=== PATIENT | male | born 1980 | race Caucasian/White ===

== ENCOUNTER 2023-01-05 14:20 | Emergency (ER) | payer OTHER, SELFPAY ==
--- NOTE | 2023-01-05 15:15 | RAD REPORT ---
EXAM DESCRIPTION: RAD - Knee Right 3 View - 01/05/2023 3:09 pm CLINICAL HISTORY: Pain;Swelling COMPARISON: No comparisons FINDINGS: There is significant soft tissue swelling anterior to the patella. No fracture, dislocatio n or joint effusion. IMPRESSION: Significant soft tissue swelling anterior knee.
--- NOTE | 2023-01-05 15:28 | ER ---
Nurse's Notes [facility] Name: Manjeet Luna Age: 42 yrs Sex: Male : 1980 Arrival Date: 01/05/2023 Time: 14:20 Bed 12 Private MD: Diagnosis: Effusion, right knee Presentation: 01/05 14:35 Chief complaint: Patient states: Pt reports right knee swelling and pain X1 week. Pt cm10 reports that this is an ongoing issue but got worse 1 week ago. Pt reports taking Excedrin for the pain with no relief. Coronavirus screen: Vaccine status: Patient reports being unvaccinated. Client denies travel out of the [place] in the last 14 days. At this time, the client does not indicate any symptoms associated with coronavirus-19. Ebola Screen: No symptoms or risks identified at this time. 14:35 Method Of Arrival: Ambulatory cm10 14:37 Initial Sepsis Screen: Does the patient meet any 2 criteria? No. Patient's initial cm10 sepsis screen is negative. Does the patient have a suspected source of infection? No. Patient's initial sepsis screen is negative. Risk Assessment: Do you want to hurt yourself or someone else? Patient reports no desire to harm self or others. Onset of symptoms was December 29, 2022. 14:37 Acuity: AYAN 4 cm10 Triage Assessment: 14:38 General: Appears in no apparent distress. comfortable, Behavior is calm, cooperative. cm10 Pain: Complains of pain in right knee Pain currently is 8 out of 10 on a pain scale. Quality of pain is described as dull, sharp, Pain began 1 week Is continuous, Alleviated by rest, Aggravated by increased activity, repositioning, Current management is with. Historical: - Allergies: 14:38 No Known Allergies; cm10 - Home Meds: 14:38 None [Active]; cm10 - PMHx: 14:38 None; cm10 - PSHx: 14:38 None; cm10 - Immunization history:: Adult Immunizations unknown. - Social history:: Smoking status: Patient denies any tobacco usage or history of. Screenin:57 [facility] ED Fall Risk Assessment (Adult) History of falling in the last 3 months, ll1 including since admission No falls in past 3 months (0 pts) Confusion or Disorientation No (0 pts) Intoxicated or Sedated No (0 pts) Impaired Gait No (0 pts) Mobility Assist Device Used No (0 pt) Altered Elimination No (0 pt) Score/Fall Risk Level 0 - 2 = Low Risk Oriented to surroundings, Maintained a safe environment. Abuse screen: Denies threats or abuse. Nutritional screening: No deficits noted. Tuberculosis screening: No symptoms or risk factors identified. Vital Signs: 14:37 BP 151 / 97; Pulse 112; Resp 18; Temp 98.2(O); Pulse Ox 96% on R/A; Weight 136.08 kg; cm10 Height 6 ft. 2 in. ; Pain 8/10; 14:37 Body Mass Index 38.52 (136.08 kg, 187.96 cm) cm10 14:37 Pain Scale: Adult cm10 ED Course: 14:22 Patient arrived in ED. mr 14:38 Triage completed. cm10 14:39 Guerline Gann FNP-C is PHCP. snw 14:39 Deepak Boggs MD is Attending Physician. snw 14:39 Arm band placed on Patient placed in an exam room, on a stretcher. cm10 15:10 Knee Right 3 View XRAY In Process Unspecified. EDMS 15:24 Nela Alicea, RN is Primary Nurse. ll1 15:57 No provider procedures requiring assistance completed. ll1 15:58 Patient has correct armband on for positive identification. ll1 15:58 Patient did not have IV access during this emergency room visit. ll1 Administered Medications: 15:50 Not Given (Patient Refused): Famotidine PO 20 mg PO once ll1 15:50 Not Given (Patient Refused): Boostrix Tdap IM 0.5 ml IM once; as a single dose ll1 15:51 Not Given (Patient Refused): Ciprofloxacin PO 500 mg PO once ll1 15:51 Not Given (Patient Refused): predniSONE PO 40 mg PO once ll1 Medication: 15:58 VIS not applicable for this client. ll1 Outcome: 15:28 Discharge ordered by . snw 15:57 Discharged to home ambulatory. ll1 15:57 Condition: stable 15:57 Discharge instructions given to patient, Instructed on discharge instructions, follow up and referral plans. 15:58 Patient left the ED. ll1 Signatures: Dispatcher [employer] EDNE Guerline Gann FNP-C FNP-Alnaa Araya mr Nela Alicea, RN RN ll1 Jhony, Nadine, RN RN cm10
--- NOTE | 2023-01-05 15:28 | EDPHYS ---
Physician Documentation [facility] Name: Manjeet Luna Age: 42 yrs Sex: Male : 1980 Arrival Date: 01/05/2023 Time: 14:20 Bed 12 Private MD: ED Physician Deepak Boggs HPI: 01/05 15:35 This 42 yrs old Male presents to ER via Ambulatory with complaints of Knee swelling. snw 15:35 Onset: The symptoms/episode began/occurred acutely, 2 day(s) ago, and became snw persistent. Modifying factors: The patient symptoms are alleviated by nothing, the patient symptoms are aggravated by bending. It is unknown whether or not the patient has had similar symptoms in the past. Historical: - Allergies: 14:38 No Known Allergies; cm10 - Home Meds: 14:38 None [Active]; cm10 - PMHx: 14:38 None; cm10 - PSHx: 14:38 None; cm10 - Immunization history:: Adult Immunizations unknown. - Social history:: Smoking status: Patient denies any tobacco usage or history of. ROS: 15:34 Constitutional: Negative for fever, chills, and weight loss, Eyes: Negative for injury, snw pain, redness, and discharge, ENT: Negative for injury, pain, and discharge, Neck: Negative for injury, pain, and swelling, Cardiovascular: Negative for chest pain, palpitations, and edema, Respiratory: Negative for shortness of breath, cough, wheezing, and pleuritic chest pain, Abdomen/GI: Negative for abdominal pain, nausea, vomiting, diarrhea, and constipation, Back: Negative for injury and pain, : Negative for injury, bleeding, discharge, and swelling, Skin: Negative for injury, rash, and discoloration, Neuro: Negative for headache, weakness, numbness, tingling, and seizure, Psych: Negative for depression, anxiety, suicide ideation, homicidal ideation, and hallucinations. 15:34 MS/extremity: Positive for pain, swelling, tenderness, of the right knee. Exam: 15:33 Constitutional: This is a well developed, well nourished patient who is awake, alert, snw and in no acute distress. Head/Face: Normocephalic, atraumatic. Eyes: Pupils equal round and reactive to light, extra-ocular motions intact. Lids and lashes normal. Conjunctiva and sclera are non-icteric and not injected. Cornea within normal limits. Periorbital areas with no swelling, redness, or edema. ENT: Nares patent. No nasal discharge, no septal abnormalities noted. Tympanic membranes are normal and external auditory canals are clear. Oropharynx with no redness, swelling, or masses, exudates, or evidence of obstruction, uvula midline. Mucous membranes moist. Neck: Trachea midline, no thyromegaly or masses palpated, and no cervical lymphadenopathy. Supple, full range of motion without nuchal rigidity, or vertebral point tenderness. No Meningismus. Chest/axilla: Normal chest wall appearance and motion. Nontender with no deformity. No lesions are appreciated. Cardiovascular: Regular rate and rhythm with a normal S1 and S2. No gallops, murmurs, or rubs. Normal PMI, no JVD. No pulse deficits. Respiratory: Lungs have equal breath sounds bilaterally, clear to auscultation and percussion. No rales, rhonchi or wheezes noted. No increased work of breathing, no retractions or nasal flaring. Abdomen/GI: Soft, non-tender, with normal bowel sounds. No distension or tympany. No guarding or rebound. No evidence of tenderness throughout. Back: No spinal tenderness. No costovertebral tenderness. Full range of motion. Skin: Warm, dry with normal turgor. Normal color with no rashes, no lesions, and no evidence of cellulitis. Neuro: Awake and alert, GCS 15, oriented to person, place, time, and situation. Cranial nerves II-XII grossly intact. Motor strength 5/5 in all extremities. Sensory grossly intact. Cerebellar exam normal. Normal gait. Psych: Awake, alert, with orientation to person, place and time. Behavior, mood, and affect are within normal limits. 15:33 Musculoskeletal/extremity: Extremities: grossly normal except: noted in the right knee: decreased ROM, swelling, tenderness, ROM: limited active range of motion due to pain, limited passive range of motion due to pain, Circulation is intact in all extremities. Sensation intact. Vital Signs: 14:37 BP 151 / 97; Pulse 112; Resp 18; Temp 98.2(O); Pulse Ox 96% on R/A; Weight 136.08 kg; cm10 Height 6 ft. 2 in. ; Pain 03/02; 14:37 Body Mass Index 38.52 (136.08 kg, 187.96 cm) cm10 14:37 Pain Scale: Adult cm10 MDM: 14:45 Patient medically screened. snw 15:34 Differential diagnosis: bacterial infection, gout, trauma, bursitis. Data reviewed: snw vital signs, nurses notes. Counseling: I had a detailed discussion with the patient and/or guardian regarding: the historical points, exam findings, and any diagnostic results supporting the discharge/admit diagnosis, radiology results, the need for outpatient follow up, for definitive care, to return to the emergency department if symptoms worsen or persist or if there are any questions or concerns that arise at home. Special discussion: Based on the history and exam findings, there is no indication for further emergent testing or inpatient evaluation. I discussed with the patient/guardian the need to see the orthopedic surgeon for further evaluation of the symptoms. I discussed with the patient/guardian the need to see the primary care provider for further evaluation of the symptoms. 01/05 14:40 Order name: Knee Right 3 View XRAY; Complete Time: 15:18 snw 01/05 15:26 Order name: Knee Immobilizer; Complete Time: 15:50 snw Administered Medications: 15:50 Not Given (Patient Refused): Famotidine PO 20 mg PO once ll1 15:50 Not Given (Patient Refused): Boostrix Tdap IM 0.5 ml IM once; as a single dose ll1 15:51 Not Given (Patient Refused): Ciprofloxacin PO 500 mg PO once ll1 15:51 Not Given (Patient Refused): predniSONE PO 40 mg PO once ll1 Disposition Summary: 01/05/23 15:28 Discharge Ordered Location: Home snw Condition: Stable snw Diagnosis - Effusion, right knee snw Followup: snw - With: Emergency Department - When: As needed - Reason: Worsening of condition Followup: snw - With: Private Physician - When: 2 - 3 days - Reason: Recheck today's complaints, Continuance of care, Re-evaluation by your physician Discharge Instructions: - Discharge Summary Sheet snw - Knee Effusion snw - Knee Arthrocentesis snw - Heat Therapy snw Forms: - Work release form snw - Medication Reconciliation Form snw - Thank You Letter snw - Antibiotic Education snw - Prescription Opioid Use snw Prescriptions: - Cipro 500 mg Oral Tablet - take 1 tablet by ORAL route every 12 hours for 10 days; 20 tablet; Refills: 0, snw Product Selection Permitted - Prednisone 20 mg Oral Tablet - take 2 tablets by ORAL route once daily for 5 days; 10 tablet; Refills: 0, snw Product Selection Permitted - Pepcid 20 mg Oral Tablet - take 1 tablet by ORAL route once daily; 20 tablet; Refills: 0, Product snw Selection Permitted Signatures: Dispatcher [employer] Guerline Levi, LOCATION MANAGER-C LOCATION MANAGER-Blessingw Nadine Booker, RN RN cm10 Nela Alicea RN ll1
[2023-01-05 16:42] VITALS: BP 151/97; TEMP 98.2; O2SAT 96
== END 2023-01-05 15:58 | disposition home or self-care (01) ==
LOC: ER 14:20
DX: M25.461 Effusion, right knee (principal)
CPT/HCPCS: 99283

== ENCOUNTER 2023-06-04 23:09 | Emergency (ER) | payer OTHER ==
[2023-06-05] MEDS ORDERED: LIDOCAINE 1% MPF 30 ML VIAL ONE (00:03)
[2023-06-05 01:24] LABS: Appearance VERY TURBID (CLEAR); Body Fluid Source SYNOVIAL; Body Fluid WBC 12871 /mm^3; Color of fluid Yellow (COLORLESS)
--- NOTE | 2023-06-05 01:42 | ER ---
Nurse's Notes [facility] Name: Manjeet Luna Age: 42 yrs Sex: Male : 1980 Arrival Date: 06/04/2023 Time: 23:09 Bed 13 Private MD: Diagnosis: gout of right knee Presentation: 06/04 23:32 Chief complaint: Patient states: right knee pain x 3 days seen on Jun 02 at another facility given antibiotic injection and clindamycin 600mg TID pt reports very little improvement. Coronavirus screen: Vaccine status: Patient reports being unvaccinated. Ebola Screen: Patient negative for fever greater than or equal to 101.5 degrees Fahrenheit, and additional compatible Ebola Virus Disease symptoms. Initial Sepsis Screen: Does the patient meet any 2 criteria? HR > 90 bpm. Does the patient have a suspected source of infection? No. Patient's initial sepsis screen is negative. Risk Assessment: Do you want to hurt yourself or someone else? Patient reports no desire to harm self or others. Note on crutches. 23:32 Method Of Arrival: Other 23:32 Acuity: AYAN 3 Triage Assessment: 23:37 General: Appears uncomfortable, Behavior is calm, cooperative. Pain: Complains of pain kl in right knee Pain currently is 9 out of 10 on a pain scale. EENT: No deficits noted. Neuro: No deficits noted. Cardiovascular: No deficits noted. Respiratory: No deficits noted. GI: No deficits noted. No signs and/or symptoms were reported involving the gastrointestinal system. : No deficits noted. No signs and/or symptoms were reported regarding the genitourinary system. Derm: No deficits noted. No signs and/or symptoms reported regarding the dermatologic system. Musculoskeletal: Circulation, motion, and sensation intact. Capillary refill < 3 seconds, Range of motion: limited in right knee Reports pain in right knee. Historical: - Allergies: 23:36 No Known Allergies; kl - Home Meds: 23:36 clindamycin HCl 300 mg Oral capsule 2 caps every 8 hours [Active]; kl - PMHx: 23:36 None; kl - PSHx: 23:36 None; kl - Immunization history:: Adult Immunizations not immunized. - Social history:: Smoking status: Patient denies any tobacco usage or history of. Screenin:15 [facility] ED Fall Risk Assessment (Adult) History of falling in the last 3 months, kl including since admission No falls in past 3 months (0 pts) Confusion or Disorientation No (0 pts) Intoxicated or Sedated No (0 pts) Impaired Gait Yes (1 pt) Mobility Assist Device Used Yes (1 pt) Altered Elimination No (0 pt) Score/Fall Risk Level 0 - 2 = Low Risk Oriented to surroundings, Educated pt \T\ family on fall prevention, incl call for assistance when getting out of bed. Abuse screen: Denies threats or abuse. Nutritional screening: No deficits noted. Tuberculosis screening: No symptoms or risk factors identified. Assessment: 06/05 00:15 Reassessment: Patient and/or family updated on plan of care and expected duration. Pain kl level reassessed. Patient is alert, oriented x 3, equal unlabored respirations, skin warm/dry/pink. Patient states feeling better. Patient states symptoms have improved. Vital Signs: 06/04 23:32 BP 153 / 97; Pulse 109; Resp 16; Temp 98.3(O); Pulse Ox 95% on R/A; Weight 130.63 kg kl (M); Height 6 ft. 1 in. ; Pain /; 06/05 00:35 BP 148 / 72; Pulse 72; Resp 20; kl 01:49 BP 136 / 80; Pulse 98; Pulse Ox 97% ; kl 06/04 23:32 Body Mass Index 38.00 (130.63 kg, 185.42 cm) 06/04 23:32 Pain Scale: Adult ED Course: 06/04 23:16 Patient arrived in ED. gm2 23:16 Shelly Mederos PA-C [facility]. sb4 23:16 Vane Upton MD is Attending Physician. sb4 23:36 Triage completed. 06/05 00:35 No apparent distress. Resting quietly. kl 00:36 Patient has correct armband on for positive identification. Bed in low position. Call light in reach. Procedure consent explained by staff, explained by physician. 00:36 of right knee fluid removed was yellow, Specimen sent to lab. Removed 20 ml's of fluid Set up for procedure. Dressed with 4X4s, Patient tolerated well. 01:49 Patient did not have IV access during this emergency room visit. Administered Medications: 01:48 Drug: predniSONE PO 60 mg PO once Route: PO; ron Medication: 00:37 VIS not applicable for this client. ron Outcome: 01:42 Discharge ordered by MD. eastman 01:49 Discharged to home ambulatory, 01:49 Condition: improved 01:49 Discharge instructions given to patient, Instructed on discharge instructions, follow up and referral plans. medication usage, Demonstrated understanding of instructions, follow-up care, medications, Prescriptions given X 2, 01:49 Patient left the ED. Signatures: Gemma Alicea RN RN Shelly Salomon, PA-C PA-C Ro Hassan [facility]
--- NOTE | 2023-06-05 01:42 | EDPHYS ---
Physician Documentation [facility] Name: Manjeet Luna Age: 42 yrs Sex: Male : 1980 Arrival Date: 06/04/2023 Time: 23:09 Bed 13 Private MD: ED Physician Vane Upton HPI: 06/05 00:19 This 42 yrs old Male presents to ER via Other with complaints of Knee Pain. sb4 00:19 The patient presents with pain, that is acute, swelling. The complaints affect the sb4 right knee. Onset: The symptoms/episode began/occurred 5 day(s) ago. Patient states that his right knee was swollen when he woke up 5 days ago. He states that it was painful and was not getting better so he went to [facility] ED 2 days later. They did an x-ray that was negative and prescribed him clindamycin. He states he has been taking the clindamycin as prescribed but feels that the pain and swelling are not getting any better. He denies any fevers or erythema to the area. No numbness or tingling in his leg. He denies any history of gout. Historical: - Allergies: 06/04 23:36 No Known Allergies; kl - Home Meds: 23:36 clindamycin HCl 300 mg Oral capsule 2 caps every 8 hours [Active]; kl - PMHx: 23:36 None; kl - PSHx: 23:36 None; kl - Immunization history:: Adult Immunizations not immunized. - Social history:: Smoking status: Patient denies any tobacco usage or history of. ROS: 06/05 00:19 Constitutional: Negative for fever, chills, and weight loss, sb4 MS/extremity: Positive for pain, swelling, of the right knee, Exam: 00:19 Constitutional: This is a well developed, well nourished patient who is awake, alert, sb4 and in no acute distress. Head/Face: Normocephalic, atraumatic. Eyes: Extra-ocular motions intact. Periorbital areas with no swelling, redness, or edema. ENT: Mucous membranes moist. Skin: Warm, dry with normal turgor. Normal color with no rashes, no lesions, and no evidence of cellulitis. Neuro: Awake and alert, GCS 15, oriented to person, place, time, and situation. Motor strength 5/5 in all extremities. Sensory grossly intact. 00:19 Musculoskeletal/extremity: Exam is negative for calf tenderness, decreased range of motion, deformity, ecchymosis, erythema, Joints: the right knee displays effusion, swelling, Vital Signs: 06/04 23:32 BP 153 / 97; Pulse 109; Resp 16; Temp 98.3(O); Pulse Ox 95% on R/A; Weight 130.63 kg kl (M); Height 6 ft. 1 in. ; Pain 04/02; 06/05 00:35 BP 148 / 72; Pulse 72; Resp 20; kl 01:49 BP 136 / 80; Pulse 98; Pulse Ox 97% ; kl 06/04 23:32 Body Mass Index 38.00 (130.63 kg, 185.42 cm) kl 06/04 23:32 Pain Scale: Adult kl Procedures: 00:19 Joint Treatment: Aspiration of right knee using 18 gauge needle, Lidocaine, Removed 30 sb4 ml's of yellow fluid, Specimen sent to lab. Dressed with 4x4s, Patient tolerated well. MDM: 06/04 23:25 Patient medically screened. sb4 06/05 00:19 Differential diagnosis: Knee effusion, gout, septic joint. sb4 01:44 Data reviewed: vital signs, nurses notes, lab test result(s), I have discussed the sb4 patient's presentation/case with the attending Emergency Department Physician; and as a result, I will discharge patient. Counseling: I had a detailed discussion with the patient and/or guardian regarding the historical points, exam findings, and any diagnostic results supporting the discharge/admit diagnosis, lab results, to return to the emergency department if symptoms worsen or persist or if there are any questions or concerns that arise at home. 06/05 00:14 Order name: Body Fluid Cell Count; Complete Time: 01:37 EDMS 06/05 00:14 Order name: Body Fluid Crystals; Complete Time: :37 EDMS 06/05 00:17 Order name: Body Fluid Culture EDMS Administered Medications: 01:48 Drug: predniSONE PO 60 mg PO once Route: PO; kl Disposition Summary: 06/05/23 01:42 Discharge Ordered Notes: Location: Home sb4 Problem: new sb4 Symptoms: have improved sb4 Condition: Stable sb4 Diagnosis - gout of right knee sb4 Followup: sb4 - With: Emergency Department - When: As needed - Reason: Trouble breathing, Worsening of condition Discharge Instructions: - Discharge Summary Sheet sb4 - Gout, [id number] sb4 Forms: - Medication Reconciliation Form sb4 - Thank You Letter sb4 - Antibiotic Education sb4 - Prescription Opioid Use sb4 - Patient Portal Instructions sb4 - Leadership Thank You Letter sb4 Prescriptions: - Prednisone 20 mg Oral tablet - take 3 tablets ORAL route once daily for 4 days; 12 tablet; Refills: 0, Product sb4 Selection Permitted - Diclofenac Sodium 75 mg Oral tablet, delayed release (enteric coated) - take 1 tablet ORAL route 2 times per day for 10 days; 20 tablet; Refills: 0, sb4 Product Selection Permitted Signatures: Dispatcher [employer] Gemma Jarquin RN RN kl Brown, Sophia, PA-C PAAgustin sb4
[2023-06-05 01:54] VITALS: TEMP 98.3
[2023-06-05 01:57] VITALS: BP 136/80; O2SAT 97
[2023-06-05] MEDS ORDERED: predniSONE 20 MG TAB ONE (01:57)
== END 2023-06-05 01:49 | disposition home or self-care (01) ==
LOC: ER 23:09
PROC: 0S9C3ZX Drainage of Right Knee Joint, Percutaneous Approach, Diagnostic (ICD-10-PCS; principal; 2023-06-05)
DX: M10.9 Gout, unspecified (principal)
CPT/HCPCS: 87070; 36415; 89050; 89060; 99284; 10021; J7512

== ENCOUNTER 2023-07-02 18:57 | Emergency (ER) | payer OTHER ==
[2023-07-02] MEDS ORDERED: dexAMETHasone 10 MG/ML VIAL ONE (20:11)
[2023-07-02] MEDS ORDERED: KETOROLAC 30 MG/ML INJ ONE (20:12)
--- NOTE | 2023-07-02 20:32 | RAD REPORT ---
EXAM DESCRIPTION: RAD - Knee Right 3 View - 07/02/2023 8:10 pm CLINICAL HISTORY: PAIN COMPARISON: <Comparisons> FINDINGS: Moderate soft tissue swelling is seen no involving the anterior aspect of the knee. No acu te fracture or dislocation seen. Moderate suprapatellar joint effusion.
--- NOTE | 2023-07-02 20:32 | RAD REPORT ---
EXAM DESCRIPTION: RAD - Knee Left 3 View - 07/02/2023 8:10 pm CLINICAL HISTORY: PAIN COMPARISON: <Comparisons> FINDINGS: Moderate soft tissue swelling is seen along the anterior aspect of the knee. No fracture, dislocation or aggressive marrow lesion. No significant joint effusion.
--- NOTE | 2023-07-02 21:34 | RAD REPORT ---
EXAM DESCRIPTION: US - Extrem Venous W Compress Oscar - 07/02/2023 9:29 pm CLINICAL HISTORY: Pain;Swelling Bilateral leg edema and swelling. COMPARISON: <Comparisons> TECHNIQUE: Real-time sonographic interrogation of the left and right lower extremity deep venous sys tems was performed. FINDINGS: Normal compressibility, flow augmentation, phasic flow and spontaneous flow is identified in both the left and right lower extremity deep venous systems. IMPRESSION: No sonographic evidence of left or right lower extremity deep venous thrombosis.
[2023-07-02] MEDS ORDERED: HYDROMORPHONE HCL 1 MG/ML INJ ONE (21:42)
--- NOTE | 2023-07-02 21:44 | EDPHYS ---
Physician Documentation [facility] Name: Manjeet Luna Age: 42 yrs Sex: Male : 1980 Arrival Date: 07/02/2023 Time: 18:57 Bed 11 Private MD: ED Physician Wero Urias HPI: 07/02 19:30 This 42 yrs old Male presents to ER via Ambulatory with complaints of Knee Pain. cp 19:30 The patient presents with pain, that is acute, swelling, tenderness. The complaints cp affect the left knee, right knee. 19:30 Context: reports diagnosed with gout. Onset: The symptoms/episode began/occurred last cp month. Associated signs and symptoms: Pertinent positives: swelling, warmth, skin redness, Pertinent negatives fever, injury. Historical: - Allergies: 19:29 No Known Allergies; nj1 - PSHx: 19:29 Hemorrhoidectomy; nj1 - Immunization history:: Client reports having NOT received the Covid vaccine. - Social history:: Smoking status: Reported history of juuling and/or vaping. ROS: 19:35 Constitutional: Negative for body aches, chills, fever, poor PO intake, cp 19:35 MS/extremity: Positive for pain, of the right knee and left knee, Negative for injury cp or acute deformity, paresthesias, 19:35 Eyes: Negative for injury, pain, redness, and discharge, cp 19:35 ENT: Negative for drainage from ear(s), ear pain, sore throat, difficulty swallowing, difficulty handling secretions, 19:35 Neck: Negative for pain with movement, pain at rest, stiffness, 19:35 Cardiovascular: Negative for chest pain, edema, palpitations, 19:35 Respiratory: Negative for cough, shortness of breath, wheezing, 19:35 Abdomen/GI: Negative for abdominal pain, nausea, vomiting, and diarrhea, 19:35 Back: Negative for pain at rest, pain with movement, 19:35 Neuro: Negative for altered mental status, dizziness, headache, weakness, 19:35 All other systems are negative, Exam: 19:40 Constitutional: The patient appears in no acute distress, alert, awake, cp non-diaphoretic, non-toxic, well developed, well nourished, obese, uncomfortable, 19:40 Head/Face: Normocephalic, atraumatic. cp 19:40 Eyes: Periorbital structures: appear normal, Conjunctiva: normal, no exudate, no injection, Sclera: no appreciated abnormality, Lids and lashes: appear normal, bilaterally, 19:40 ENT: External ear(s): are unremarkable, Nose: is normal, Mouth: Lips: moist, Oral mucosa: pink and intact, moist, Posterior pharynx: is normal, airway is patent, no erythema, no exudate, 19:40 Chest/axilla: Inspection: normal, Palpation: is normal, no crepitus, no tenderness, 19:40 Cardiovascular: Rate: tachycardic, Rhythm: regular, 19:40 Respiratory: the patient does not display signs of respiratory distress, Respirations: normal, no use of accessory muscles, no retractions, labored breathing, is not present, Breath sounds: are clear throughout, 19:40 Back: pain, is absent, ROM is normal, cp 19:40 Musculoskeletal/extremity: Extremities: grossly normal except: noted in the right knee: pain, tenderness, anterior swelling with effusion, overlying skin warm with mild erythema, pain with passive ROM, noted in the left knee: pain, tenderness, mild swelling noted, full AROM, 19:40 Neuro: Orientation: to person, place \T\ time. Mentation: is normal, cp Vital Signs: 19:25 BP 147 / 106; Pulse 109; Resp 18; Temp 98.9(TE); Pulse Ox 99% on R/A; Weight 122.47 kg; nj1 Height 6 ft. 2 in. ; Pain 9/10; 20:13 BP 151 / 100; Pulse 112; Resp 19; Pulse Ox 100% on R/A; me1 20:47 BP 158 / 97; Pulse 106; Resp 18; Pulse Ox 98% on R/A; me1 19:25 Body Mass Index 34.67 (122.47 kg, 187.96 cm) nj1 19:25 Pain Scale: Adult nj1 MDM: 19:31 Patient medically screened. cp 21:00 Differential diagnosis: septic joint, cellulitis, gout, fracture, arthritis. cp 07/02 19:23 Order name: XRAY Knee RIGHT 3 view; Complete Time: 21:02 cp 07/02 21:02 Interpretation: Report reviewed. cp 07/02 19:23 Order name: XRAY Knee LEFT 3 view; Complete Time: 21:02 cp 07/02 21:02 Interpretation: Report reviewed. cp 07/02 19:23 Order name: US Extremity Venous W Compression Oscar; Complete Time: 21:36 cp 07/02 21:36 Interpretation: Report reviewed. cp Administered Medications: 20:05 Drug: Ketorolac IM 30 mg IM once Route: IM; Site: right deltoid; me1 20:14 Follow up: Response: No adverse reaction me1 20:50 Follow up: Response: Pain is decreased me1 20:05 Drug: Dexamethasone IM 10 mg IM once Route: IM; Site: right deltoid; me1 20:14 Follow up: Response: No adverse reaction me1 21:32 Drug: HYDROmorphone IM 1 mg IM once Route: IM; Site: left deltoid; me1 21:50 Follow up: Response: No adverse reaction; Pain is decreased me1 21:50 Drug: Doxycycline PO 200 mg PO once Route: PO; me1 21:54 Follow up: Response: No adverse reaction me1 21:50 Drug: predniSONE PO 40 mg PO once Route: PO; me1 21:54 Follow up: Response: No adverse reaction me1 Disposition: 21:36 Co-signature as Attending Physician, Wero Urias MD I reviewed the patient's care rt provided by the Advanced Practice Provider and agree with the diagnosis and treatment plan. Disposition Summary: 07/02/23 21:43 Discharge Ordered Notes: Location: Home cp Problem: new cp Symptoms: have improved cp Condition: Stable cp Diagnosis - Pain in left knee cp - Pain in right knee cp Followup: cp - With: Cristopher Garcia MD - When: 2 - 3 days - Reason: Recheck today's complaints Discharge Instructions: - Discharge Summary Sheet cp - Elastic Bandage and RICE Therapy cp - Acute Knee Pain, Adult cp Forms: - Medication Reconciliation Form cp - Thank You Letter cp - Antibiotic Education cp - Prescription Opioid Use cp - Patient Portal Instructions cp - Leadership Thank You Letter cp Prescriptions: - Prednisone 20 mg Oral Tablet - take 3 tablets ORAL route once daily for 5 days; 15 tablet; Refills: 0, Product cp Selection Permitted - Doxycycline Hyclate 100 mg Oral Tablet - take 1 tablet ORAL route every 12 hours; 20 tablet; Refills: 0, Product cp Selection Permitted - Tramadol 50 mg Oral Tablet - take 1 tablet ORAL route every 8 hours as needed; 12 tablet; Refills: 0, cp Product Selection Permitted Signatures: Dispatcher [employer] EDYogesh Saxena PA PA cp [place], Ryan, MD MD rt Abiola Cunningham RN RN nj1 Sabina Guzman RN RN me1 Corrections: (The following items were deleted from the chart) 19:30 19:29 PMHx: Gout; nj1 nj1
--- NOTE | 2023-07-02 21:44 | ER ---
Nurse's Notes [facility] Name: Manjeet Luna Age: 42 yrs Sex: Male : 1980 Arrival Date: 07/02/2023 Time: 18:57 Bed 11 Private MD: Diagnosis: Pain in left knee;Pain in right knee Presentation: 07/02 19:25 Chief complaint: Patient states: Right knee pain for about a month, seen here, told it nj1 was gout, took abx and steoroids which seemed to help, changed diet but as soon as steroids were completed pain came got worse as well as swelling. Denies injury. Coronavirus screen: Vaccine status: Patient reports being unvaccinated. Ebola Screen: Patient denies travel to an Ebola-affected area in the 21 days before illness onset. Initial Sepsis Screen: Does the patient meet any 2 criteria? HR > 90 bpm. No. Patient's initial sepsis screen is negative. Does the patient have a suspected source of infection? No. Patient's initial sepsis screen is negative. Risk Assessment: Do you want to hurt yourself or someone else? Patient reports no desire to harm self or others. Onset of symptoms was May 2023. 19:25 Method Of Arrival: Ambulatory [facility] 19:25 Acuity: AYAN 3 nj1 Historical: - Allergies: 19:29 No Known Allergies; nj1 - PSHx: 19:29 Hemorrhoidectomy; nj1 - Immunization history:: Client reports having NOT received the Covid vaccine. - Social history:: Smoking status: Reported history of juuling and/or vaping. Screenin:[address] [facility] ED Fall Risk Assessment (Adult) History of falling in the last 3 months, me1 including since admission No falls in past 3 months (0 pts) Confusion or Disorientation No (0 pts) Intoxicated or Sedated No (0 pts) Impaired Gait No (0 pts) Mobility Assist Device Used No (0 pt) Altered Elimination No (0 pt) Score/Fall Risk Level 0 - 2 = Low Risk Maintained a safe environment, Provided non-skid footwear, Hourly rounding (assess needs \T\ fall precautionary measures) done. Abuse screen: Denies threats or abuse. Nutritional screening: No deficits noted. Tuberculosis screening: No symptoms or risk factors identified. Assessment: 20:15 General: Appears uncomfortable, well groomed, well developed, well nourished, Behavior me1 is calm, cooperative, appropriate for age, Reports Right knee pain for about a month, seen here, told it was gout, took abx and steoroids which seemed to help, changed diet but as soon as steroids were completed pain came got worse as well as swelling. Denies injury. Pain: Complains of pain in right knee Pain does not radiate. Pain currently is 9 out of 10 on a pain scale. Quality of pain is described as aching, Pain began gradually, Is continuous. Neuro: Level of Consciousness is awake, alert, obeys commands, Oriented to person, place, time, situation, Appropriate for age. Cardiovascular: Capillary refill < 3 seconds Patient's skin is warm and dry. Respiratory: Airway is patent Respiratory effort is even, unlabored, Respiratory pattern is regular, symmetrical. Musculoskeletal: Reports pain in right knee. Vital Signs: 19:25 BP 147 / 106; Pulse 109; Resp 18; Temp 98.9(TE); Pulse Ox 99% on R/A; Weight 122.47 kg; nj1 Height 6 ft. 2 in. ; Pain 9/10; 20:13 BP 151 / 100; Pulse 112; Resp 19; Pulse Ox 100% on R/A; me1 20:47 BP 158 / 97; Pulse 106; Resp 18; Pulse Ox 98% on R/A; me1 19:25 Body Mass Index 34.67 (122.47 kg, 187.96 cm) nj1 19:25 Pain Scale: Adult [facility] ED Course: 19:00 Patient arrived in ED. gm2 19:01 Yogesh Florez PA is PHCP. cp 19:01 Wero Urias MD is Attending Physician. cp 19:29 Triage completed. nj1 19:30 Arm band placed on right wrist. nj1 19:53 Sabina Guzman, JERI is Primary Nurse. me1 20:12 XRAY Knee RIGHT 3 view In Process Unspecified. EDMS 20:12 XRAY Knee LEFT 3 view In Process Unspecified. EDMS 20:15 Patient has correct armband on for positive identification. Bed in low position. [place] [facility] [place]. Side rails up X 1. Provided Education on: POC. Verbalized understanding.. 20:15 No provider procedures requiring assistance completed. me1 21:31 US Extremity Venous W Compression Oscar In Process Unspecified. EDMS 21:42 Cristopher Garcia MD is Referral Physician. cp 22:02 Patient did not have IV access during this emergency room visit. me1 Administered Medications: 20:05 Drug: Ketorolac IM 30 mg IM once Route: IM; Site: right deltoid; me1 20:14 Follow up: Response: No adverse reaction me1 20:50 Follow up: Response: Pain is decreased me1 20:05 Drug: Dexamethasone IM 10 mg IM once Route: IM; Site: right deltoid; me1 20:14 Follow up: Response: No adverse reaction me1 21:32 Drug: HYDROmorphone IM 1 mg IM once Route: IM; Site: left deltoid; me1 21:50 Follow up: Response: No adverse reaction; Pain is decreased me1 21:50 Drug: Doxycycline PO 200 mg PO once Route: PO; me1 21:54 Follow up: Response: No adverse reaction me1 21:50 Drug: predniSONE PO 40 mg PO once Route: PO; me1 21:54 Follow up: Response: No adverse reaction me1 Medication: 20:15 VIS not applicable for this client. me1 Outcome: 21:43 Discharge ordered by MD. cp 22:02 Discharged to home via wheelchair, with friend, me1 22:02 Condition: stable 22:02 Discharge instructions given to patient, Instructed on discharge instructions, follow up and referral plans. medication usage, Demonstrated understanding of instructions, follow-up care, medications, Prescriptions given X 3, 22:09 Patient left the ED. me1 Signatures: Dispatcher [employer] EDIL Yogesh Florez PA PA cp Abiola Cunningham RN RN nj1 Sabina Guzman RN RN me1 Ro Thomas gm2 Corrections: (The following items were deleted from the chart) 19:30 19:29 PMHx: Gout; nj1 nj1 20:15 19:25 Chief complaint: Patient states: Right knee pain for about a month, seen here, me1 told it was gout, took abx and steoroids which seemed to help, changed diet but as soon as steroids were completed pain came got worse as well as swelling. Denies injury. nj1
[2023-07-02] MEDS ORDERED: predniSONE 20 MG TAB ONE (22:02)
[2023-07-02] MEDS ORDERED: DOXYCYCLINE 100 MG CAP PO ONE (22:02)
[2023-07-02 22:15] VITALS: TEMP 98.9
[2023-07-02 22:17] VITALS: BP 158/97; O2SAT 98
== END 2023-07-02 22:09 | disposition home or self-care (01) ==
LOC: ER 18:57
DX: M25.562 Pain in left knee (principal); M25.561 Pain in right knee; M10.9 Gout, unspecified
CPT/HCPCS: 73562 ×2; 93970; 96372; 99284; J7512; J1100; J1170

== ENCOUNTER 2024-10-22 19:50 | Emergency (ER) | payer OTHER ==
--- OUTSIDE RECORDS SUMMARY | 2024-10-22 19:56 | XMS REPORT | Continuity of Care Document ---
Author Name Unknown Address [address] [place] [address] [facility] [place] Address [address] [facility] [place] [address] Care Team Providers Care Police Officer Booking Name Role Phone Pcp, Patient Does Not Have A Primary Care Physic berenice Campaigns, Generic Provider Attending Clinician Unavailable BILL PERDOMO Attending Clinician Unavailable BILL PERDOMO Attending Clinician Unavailable Bill Perdomo MD Attending Clinician [phone] MAHESH SORTO Attending Clinician UnavailMAINE Kelly Attending Clinician Unavailable [place] Ramsey Attending Clinician [phone] RICCI GUIDO Attending Clinician Unavailable RICCI GUIDO Attending Clinician Unavailable Ricci Guido DO Attending Clinician [phone] MAINE HEATH Admitting Clinician Unavailable RICCI GUIDO Admitting Clinician Unavailable Payers Payer Name Policy Type Policy Number Effective Date Expirati on Date Source [facility] FOC[facility] 9 [id number] 2024 00:00:00 Allergies, Adverse Reactions, Alerts Allergy Name Allergy Type Status Severity Reaction(s) Onset Date Inactive Date Treating Clinician Comments Source NO KNOWN ALLERGIE S Drug Class Active [facility] Social History Social Habit Start Date Stop Date Quantity Comments Source Sexual orientation Ti Carter - External History of tobacco use Cigarette Smoker Ya zavaleta - External Tobacco Comment 2024-08-05 00:00:00 2024-08-05 00:00:00 Vapes Ya Carter - External Tobacco use and exposure 2024-08-05 00:00:00 2024-08-05 00:00:00 Smokeless tobacco non-user Ya Carter - External Alcoholic beverage intake 2024-08-05 00:00:00 2024-08-05 00:00:00 Ex-drinker (finding) Ya Carter - External History of Social function 2024-08-05 00:00:00 2024-08-05 00:00:00 Ya Carter - External Sex 2022-10-12 21:30:19 2022-10-12 21:30:19 Male (finding) Ya Carter - External Sex assigned at 1980 00:00:00 1980 00:00:00 Ya Carter - External Smoking Status Start Date Stop Date Source Tobacco smoking consumption unknown [facility] Occasional tobacco smoker 2024-08-05 00:00:00 Ya Carter - External Medications Ordered Medication Name Filled Medication Name Start Date Stop Date Current Medication? Ordering Clinician Indication Dosage Frequency Signature (SIG) Comments Components Source oseltamivir (TAMIFLU) capsule 75 mg 08-30 18:15: 00 08-30 17:27 :00 No 75mg 75 mg, Oral, ONCE, 1 dose, On Mon08/30/24 at 1215, Routine [facility] acetaminoph en (TYLENOL) tablet 650 mg 08-30 18:15: 00 08-30 17:27 :00 No 650mg 650 mg, Oral, ONCE, 1 dose, On Mon08/30/24 at 1215, ARMANI [facility] oseltamivir (TAMIFLU) 75 mg capsule 08-30 00:00: 00 09-05 05:59 :00 Yes [id number] 75mg Take 1 capsule by mouth every 12 (twelve) hours for 5 days. [facility] busPIRone HCl 10 MG oral Tablet 08-05 10:30: 42 Yes 10mg Q.5D Take 1 tablet (10 mg total) by mouth 2 times daily. Ya Carter - Externa l Amitriptyli ne HCl 150 MG oral Tablet 08-05 10:30: 42 Yes 150mg QD Take 1 tablet (150 mg total) by mouth nightly. Ya hopkins methylPREDN ISolone (Medrol) 4 MG oral Tablet Therapy Pack 1- 00:00: 00 08-12 05:59 :00 Yes [id number] 1{davin} Take 1 davin by mouth See Admin Instructio ns for 6 days Use as directed.. Ya Emma hopkins furosemide 20 mg tablet 2023-07 00:00: 00 07-25 05:59 :00 No [id number] 20mg Take 1 tablet by mouth every morning for 5 days. [facility] dexamethaso ne sod phos PF injection 10 mg 03-21 21:45: 00 03-21 22:53 :00 No 10mg 10 mg, Slow IV Push, ONCE, 1 dose, On Shana 03/21/24 at 1645, 1 mL [facility] ceFAZolin (ANCEF) injection 1,000 mg 03-21 21:45: 00 03-21 22:53 :00 No 1000mg 1,000 mg, Slow IV Push, ONCE, 1 dose, On Shana 03/21/24 at 1645, STAT, Reason for Anti-Infec tive: Documented Infection, Documented Infection Site: Skin / Soft Tissue, Duration of Therapy: Once (ED) [facility] HYDROcodone -acetaminop hen (NORCO 5) tablet 2 tablet 03-21 19:30: 00 03-21 20:07 :00 No 2{tbl} 2 tablet, Oral, ONCE, 1 dose, On Shana 03/21/24 at 1430, ARMANI [facility] cephALEXin 500 mg capsule 03-21 00:00: 00 Yes [id number] 500mg Take 1 capsule by mouth 4 (four) times daily. [facility] naproxen 375 mg tablet 03-21 00:00: 00 Yes [id number] 375mg Take 1 tablet by mouth in the morning and 1 tablet in the evening. Take with meals. [facility] Vital Signs Vital Name Observation Time Observation Value Comments S ource Systolic blood pressure 2024-08-30 16:47:00 135 mm[Hg] [facility] Diastolic blood pressure 2024-08-30 16:47:00 99 mm[Hg] [facility] Heart rate 2024-08-30 16:47:00 122 /min Unive [facility] Body temperature 2024-08-30 16:47:00 39.5 Avelina [facility] Respiratory rate 2024-08-30 16:47:00 18 /min [facility] Oxygen saturation in Arterial blood by Pulse oximetry 2024-08-30 16:47:00 94 /min [facility] Body height 2024-08-30 16:46:00 188 cm [facility] Body weight 2024-08-30 16:46:00 133.811 kg [facility] BMI 2024-08-30 16:46:00 37.88 kg/m2 [facility] Body height 2024-08-05 16:25:00 188 cm Jen carranza Sealeidawaqar - External Body weight 2024-08-05 16:25:00 138.801 kg Jen ey Seybold - External BMI 2024-08-05 16:25:00 39.29 kg/m2 Jen Carter - External Oxygen saturation in Arterial blood by Pulse oximetry 2024-07-19 21:49:00 92 /min [facility] Systolic blood pressure 2024-07-19 21:49:00 157 mm[Hg] [facility] Diastolic blood pressure 2024-07-19 21:49:00 104 mm[Hg] [facility] Heart rate 2024-07-19 21:49:00 88 /min Unive [facility] Body temperature 2024-07-19 21:49:00 37.28 Avelina [facility] Respiratory rate 2024-07-19 21:49:00 15 /min [facility] Body height 2024-07-19 17:53:00 185.4 cm [facility] Body weight 2024-07-19 17:53:00 124.739 kg [facility] BMI 2024-07-19 17:53:00 36.28 kg/m2 [facility] Systolic blood pressure 2024-03-21 23:45:00 130 mm[Hg] [facility] Diastolic blood pressure 2024-03-21 23:45:00 76 mm[Hg] [facility] Heart rate 2024-03-21 23:45:00 105 /min [facility] Body temperature 2024-03-21 23:45:00 37.44 Avelina [facility] Respiratory rate 2024-03-21 23:45:00 18 /min [facility] Oxygen saturation in Arterial blood by Pulse oximetry 2024-03-21 23:45:00 96 /min [facility] Body height 2024-03-21 17:43:00 185.4 cm [facility] Body weight 2024-03-21 17:43:00 131.543 kg [facility] BMI 2024-03-21 17:43:00 38.26 kg/m2 [facility] Procedures Procedure Date / Time Performed Performing Clinician Source INFLUENZA A/B RSV COVID NAAT 2024-08-30 17:19:00 Bill Perdomo [facility] BASIC METABOLIC PANEL (NA, K, CL, CO2, GLUCOSE, BUN, CREATININE, CA) 2024-07-19 21:40:00 [facility] CBC WITH DIFF 2024-07-19 21:40:00 [facility] N-TERMINAL PRO-BNP 2024-07-19 21:40:00 [facility] XR CHEST 2 VW 2024-07-19 19:23:00 [place] [facility] COMP. METABOLIC PANEL ([id number]) 2024-03-21 20:14:00 Ricci Guido [facility] SEDIMENTATION RATE 2024-03-21 20:14:00 Ricci Guido [facility] CBC WITH DIFF 2024-03-21 20:14:00 Ricci Guido [facility] XR CHEST 2 VW 2024-03-21 20:01:47 Ricci Guido [facility] US DUPLEX VENOUS ARM RIGHT - BY VASCULAR LAB 2024-03-21 19:50:27 Ricci Guido [facility] Encounters Start Date/Time End Date/Time Encounter Type Admission Type Attending [facility] Facility Care Department Encounter ID Source 2024-09-11 00:00:00 2024-09-11 11:36:00 Letter (Out) Campaigns, Generic Provider Campaigns, Generic Provider [facility] ([facility]) [id number] 350.1.13.10 4.2.7.2.686 [id number] [id number] [facility] 2024-08-30 10:47:00 2024-08-30 14:09:00 Emergency X BILL PERDOMO [facility] ERT [id number] [facility] 2024-08-30 10:47:00 2024-08-30 14:09:00 Emergency Bill Perdomo [facility] [place] 1..840.114 350.1.13.10 4.2.7.2.686 [id number] [facility] 2024-08-12 13:10:00 2024-08-12 13:10:00 Outpatient MAHESH SORTO [id number] Ya [facility] 2024-08-05 10:20:00 2024-08-05 10:20:00 Outpatient MAHESH SORTO [id number] Ya [facility] 2024-08-05 10:05:00 2024-08-05 10:05:00 Outpatient YA HARVEY [id number] Ya [facility] 2024-08-02 00:00:00 2024-08-02 00:00:00 Outpatient MAHESH SORTO [id number] Ya [facility] 2024-07-31 00:00:00 2024-07-31 12:37:01 Letter (Out) Campaigns, Generic Provider Campaigns, Generic Provider [facility] ([place]) 1.2.840.114 350.1.13.10 4.2.7.2.686 [id number] [facility] 2024-07-19 11:56:00 2024-07-19 16:32:00 Emergency X MAINE HEATH [facility] ERT [id number] [facility] 2024-07-19 11:56:00 2024-07-19 16:32:00 Emergency [place] Heath [facility] [place] 1.2.840.114 350.1.13.10 4.2.7.2.686 [id number] [facility] 2024-03-21 12:44:00 2024-03-21 18:49:00 Emergency RICCI LEGER TIMOTHY NDURSULA ERT [id number] [facility] 2024-03-21 12:44:00 2024-03-21 18:49:00 Emergency Ricci Guido [facility] 1.2.840.114 350.1.13.10 4.2.7.2.686 [id number] [facility] Results Test Description Test Time Test Comments Results Result Co mments Source [facility] (NA, K, CL, CO2, GLUCOSE, BUN, CREATININE, CA)2024-07-19 22:01:58* Test Item Value Reference Range Interpretation Comme nts NA (test code = 9555680683) 143 mmol/L 135-145 K (test code = 2928153075) 4.2 mmol/L 3.5-5.0 CL (test code = 5628908663) 102 mmol/L 98-108 CO2 TOTAL (test code = 7351019318) 32 mmol/L 23-31 H AGAP (test code = 9366027937) 9 2-16 BUN (test code = 8156139905) 9 mg/dL 7-23 GLUCOSE (test code = 1079070145) 136 mg/dL 70-110 H CREATININE (test code = 2160-0) 0.84 mg/dL 0.60-1.25 CALCIUM (test code = 8927194917) 9.8 mg/dL 8.6-10.6 eGFR (test code = 83689-6) 111.0 mL/min/1.73m2 CKD-EPI eGFR (2020). Assuming creatinine has been stable day-to-day for at least three months, the eGFR indicates Category G1 (>= 90 mL/min/1.73 m2) Lab Interpretation (test code = 30655-3) Abnormal [facility] WITH [id number] 21:48:53* Test Item Value Reference Range Interpretation Comme nts WBC (test code = 6690-2) 7.45 4.20-10.70 RBC (test code = 789-8) 4.43 4.26-5.52 HGB (test code = 718-7) 13.2 g/dL 12.2-16.4 HCT (test code = 4544-3) 38.5 % 38.4-49.3 MCV (test code = 787-2) 86.9 fL 81.7-95.6 MCH (test code = 785-6) 29.8 pg 26.1-32.7 MCHC (test code = 786-4) 34.3 g/dL 31.2-35.0 RDW-SD (test code = 64068-6) 39.9 fL 38.5-51.6 RDW-CV (test code = 788-0) 12.6 % 12.1-15.4 PLT (test code = 777-3) 425 150-328 H MPV (test code = 62311-1) 8.4 fL 9.8-13.0 L NRBC/100 WBC (test code = 4087448013) 0.0 0.0-10.0 NRBC x10^3 (test code = 1814298778) See_Comment [Automated messa ge] The system which generated this result transmitted reference range: 10*3/?L. The reference range was not used to interpret this result as normal/abnormal. GRAN MAT (NEUT) % (test code = 770-8) 55.3 % IMM GRAN % (test code = 9237576003) 0.50 % LYMPH % (test code = 736-9) 27.8 % MONO % (test code = 5905-5) 8.2 % EOS % (test code = 713-8) 7.0 % BASO % (test code = 706-2) 1.2 % GRAN MAT x10^3(ANC) (test code = 7331805494) 4.12 10*3/uL 1.99-6.95 IMM GRAN x10^3 (test code = 8022469713) 0.04 10*3/uL 0.00-0.06 LYMPH x10^3 (test code = 731-0) 2.07 10*3/uL 1.09-3.23 MONO x10^3 (test code = 742-7) 0.61 10*3/uL 0.36-1.02 EOS x10^3 (test code = 711-2) 0.52 10*3/uL 0.06-0.53 BASO x10^3 (test code = 704-7) 0.09 10*3/uL 0.01-0.09 Lab Interpretation (test code = 96263-1) Abnormal [facility] 2 [id number] 21:02:50XR CHEST 2 VW COMPARISON: 03/21/2024 Ordering provider: MAINE HEATH CLINICAL INDICATIONS: leg swelling TECHNIQUE: Appropriate radiographic technique and conforming to ALARA FINDINGS: ? AP technique magnifies the cardiac silhouette but otherwise the heart andmediastinum are unremarkable. The lungs are without infiltrate or pleural fluid. The chest is otherwiseunremarkable.[facility] WITH [id number] 21:25:26* Test Item Value Reference Range Interpretation Comme nts WBC (test code = 6690-2) 9.92 4.20-10.70 RBC (test code = 789-8) 4.98 4.26-5.52 HGB (test code = 718-7) 15.3 g/dL 12.2-16.4 HCT (test code = 4544-3) 44.7 % 38.4-49.3 MCV (test code = 787-2) 89.8 fL 81.7-95.6 MCH (test code = 785-6) 30.7 pg 26.1-32.7 MCHC (test code = 786-4) 34.2 g/dL 31.2-35.0 RDW-SD (test code = 35253-1) 41.0 fL 38.5-51.6 RDW-CV (test code = 788-0) 12.5 % 12.1-15.4 PLT (test code = 777-3) 348 150-328 H MPV (test code = 48000-1) 9.0 fL 9.8-13.0 L NRBC/100 WBC (test code = 0648607321) 0.0 0.0-10.0 NRBC x10^3 (test code = 8749049428) See_Comment [Automated messa ge] The system which generated this result transmitted reference range: 10*3/?L. The reference range was not used to interpret this result as normal/abnormal. GRAN MAT (NEUT) % (test code = 770-8) 53.5 % IMM GRAN % (test code = 4131147350) 0.50 % LYMPH % (test code = 736-9) 23.5 % MONO % (test code = 5905-5) 18.4 % EOS % (test code = 713-8) 3.0 % BASO % (test code = 706-2) 1.1 % GRAN MAT x10^3(ANC) (test code = 7846282370) 5.30 10*3/uL 1.99-6.95 IMM GRAN x10^3 (test code = 2948991895) 0.05 10*3/uL 0.00-0.06 LYMPH x10^3 (test code = 731-0) 2.33 10*3/uL 1.09-3.23 MONO x10^3 (test code = 742-7) 1.83 10*3/uL 0.36-1.02 H EOS x10^3 (test code = 711-2) 0.30 10*3/uL 0.06-0.53 BASO x10^3 (test code = 704-7) 0.11 10*3/uL 0.01-0.09 H Lab Interpretation (test code = 39013-1) Abnormal [facility] Hospital[facility]edimentation [id number] 21:19:54* Test Item Value Reference Range Interpretation Comme nts ESR (test code = 60218-8) 26 0-10 H Lab Interpretation (test cod e = 64682-7) Abnormal [facility] METABOLIC PANEL (45909)2024-03-21 20:50:56* Test Item Value Reference Range Interpretation Comme nts NA (test code = 1827636768) 138 mmol/L 135-145 K (test code = 6987536007) 4.2 mmol/L 3.5-5.0 CL (test code = 2998097986) 97 mmol/L 98-108 L CO2 TOTAL (test code = 1255331555) 31 mmol/L 23-31 AGAP (test code = 5682536839) 10 2-16 BUN (test code = 9874182866) 11 mg/dL 7-23 GLUCOSE (test code = 5051909647) 118 mg/dL 70-110 H CREATININE (test code = 2160-0) 0.86 mg/dL 0.60-1.25 TOTAL BILI (test code = 4469838533) 0.8 mg/dL 0.1-1.1 CALCIUM (test code = 2157353669) 9.8 mg/dL 8.6-10.6 T PROTEIN (test code = 0218718261) 9.5 g/dL 6.3-8.2 H ALBUMIN (test code = 6436182993) 5.0 g/dL 3.5-5.0 ALK PHOS (test code = 0539611448) 68 U/L 34-122 ALTv (test code = 1742-6) 45 U/L 5-50 AST(SGOT) (test code = 5164393645) 29 U/L 13-40 eGFR (test code = 29694-7) 110.2 mL/min/1.73m2 CKD-EPI eGFR (2020). Assuming creatinine has been stable day-to-day for at least three months, the eGFR indicates Category G1 (>= 90 mL/min/1.73 m2) Lab Interpretation (test code = 57348-6) Abnormal [facility] 2 [id number] 20:03:19HISTORY: Swelling. TECHNIQUE: PA and lateral views of the chest are obtained. No prior cheststudy available for comparison. FINDINGS: No acute pneumonia detected. No pneumothorax or pleural effusionor pulmonary congestion. Cardiothoracic ratio of approximately 16.5/37.3 cmis consistent with normal cardiac size. CONCLUSIONS: No signs of acute cardiopulmonary disease.[facility] Notes Date/Time Note Provider Source 2024-08-30 14:08:49 Patient is discharged to home. VSS, NAD. Pt has been educated on signs and symptoms for returning to ER. PIV removed. No active bleeding. Pt told about RX, educated about RX. Pt ambulated out of ER with steady gait. [employer] FOR[employer] Manjeet Silva RN [facility] 2024-08-30 10:47:54 Penny Childress is a 43 year old male that presents to the er with flu like s/s since last night. + for sick contacts that were flu + Pt has not taken any meds- pt has a temp of 1023.1f Degroot RN [facility] 2024-08-05 10:30:44 Chief Complaint Patient presents with Edema Swelling in right foot x 3 weeks no injuries states has swelling on occasion to other foot and knees and elbows states been going on for a while [phone] (home) Traci Quezada MA [facility] 2024-07-19 16:31:13 Pt discharged to home with friend, pt given printed and verbal discharge instructions regarding diagnosis peripheral edema and right leg swelling provided and follow up with PCP. Pt verbalized understanding of instructions, pt awake alert oriented x 4, resp reg unlabored, skin w/d, color appropriate for race, moves all ext well. PIV d'cd, catheter intact, bleeding controlled and dressing intact. Prescription given, discussed side affects and to avoid driving/operating machinery/or engaging in activities requiring alertness while taking. Advised to seek medical attention for new/prolonged/worsening of symptoms, pt ambulated from unit with steady gait, in no apparent distress. Jones RN [facility] 2024-07-19 15:15:49 Lily WILCOX at bedside for US IV. [facility] 2024-07-19 13:40:00 Attempted blood draw and unsuccessful. 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 Charge nurse Sagrario WILCOX notified. [facility] 2024-07-19 13:30:00 Penny Childress is a 43 year old male brought in by friend with c/o right lower leg swelling x 1 week. [facility] 2024-07-19 13:20:00 Assumed care of Pt at this time from the lobby. 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 [facility] 2024-07-19 11:54:23 Penny Childress is a 43 year old male with BLE foot/ankle/leg swelling where pt reports he has had this condition for approx 1 year. Pt reports the swelling or fluid shifts form right leg to left and then to different hands. Pt denies pain or medical issues. [employer] Sagrario Degroot RN [facility] 2024-03-21 18:45:59 Patient discharged to [facility]. Patient given printed and verbal discharge instructions regarding diagnosis. Instructed to follow up with PCP. Patient verbalized understanding of instructions. Patient awake, alert, oriented, respirations even and unlabored, skin warm and dry, color appropriate for race. No adverse reaction to meds given in ER noted upon discharge. PIV removed. Discussed medications. Advised to seek medical attention for new/prolonged/worsening of symptoms, patient ambulated from unit with steady gait in no apparent distress. T [facility] 2024-03-21 12:43:10 Patient reports right hand swelling and pain for three days getting worse and traveling up arm. Ibuprofen last night. T [facility] 2024-03-21 12:42:00 [facility] Emergency Department Note Patient Name: Penny Childress Date of : 1980 43 year old male Treatment Room: [facility] ED [facility] Primary Care Physician: PATIENT DOES NOT HAVE A PCP Patient Escorted by: Law enforcement [8] Mode of Arrival: Law enforcement [6] EMS Treatment Prior to ED Arrival: Travel and Exposure Screening: Symptoms Does patient have any of these symptoms?: (not recorded) Exposure Screening Has patient had contact with someone with a communicable disease in the last month?: (not recorded) Diseases exposed to:: (not recorded) Is Patient ?: (not recorded) Exposure Date: (not recorded) Chief Complaint: Chief Complaint Patient presents with SWELLING Right hand/arm History of Present Illness: Swelling right hand and forearm for three days. Pain is severe in hand and wrist. No fever or chills. Movement increases the discomfort and nothing relieves discomfort. History provided by: Patient Past Medical History/Immunizations: History reviewed. No pertinent past medical history. Allergies: No Known Allergies Past Social History: Substance & Sexual Activity No substance use or sexual activity history on file. Past Surgical History: History reviewed. No pertinent surgical history. Review of Systems: Review of Systems Constitutional: Negative for activity change, appetite change, fatigue and fever. HENT: Positive for sore throat. Negative for congestion. Respiratory: Positive for cough. Gastrointestinal: Negative for abdominal pain, nausea and vomiting. Musculoskeletal: Negative for neck pain. Neurological: Negative for dizziness and numbness. Physical Exam: ED Triage Vitals [03/21/24 1243] Weight 131.5 kg (290 lb) Actual or estimated Height 1.854 m (6' 1") BP 127/84 Pulse 113 Resp 20 Temp 37.4 ?C (99.3 ?F) Temp source Oral SpO2 95 % Measured on Room air Physical Exam Vitals and nursing note reviewed. Constitutional: General: He is not in acute distress. Appearance: He is obese. He is not ill-appearing, toxic-appearing or diaphoretic. HENT: Head: Normocephalic and atraumatic. Right Ear: Tympanic membrane, ear canal and external ear normal. Left Ear: Tympanic membrane, ear canal and external ear normal. Nose: Nose normal. No congestion or rhinorrhea. Mouth/Throat: Mouth: Mucous membranes are dry. Pharynx: Oropharynx is clear. Eyes: General: No scleral icterus. Right eye: No discharge. Left eye: No discharge. Extraocular Movements: Extraocular movements intact. Conjunctiva/sclera: Conjunctivae normal. Pupils: Pupils are equal, round, and reactive to light. Cardiovascular: Rate and Rhythm: Normal rate and regular rhythm. Pulses: Normal pulses. Heart sounds: Normal heart sounds. No murmur heard. No friction rub. No gallop. Pulmonary: Effort: Pulmonary effort is normal. No respiratory distress. Breath sounds: Normal breath sounds. No stridor. No wheezing or rales. Chest: Chest wall: No tenderness. Abdominal: General: Bowel sounds are normal. There is no distension. Palpations: Abdomen is soft. There is no mass. Tenderness: There is no abdominal tenderness. There is no right CVA tenderness, left CVA tenderness or rebound. Musculoskeletal: General: Swelling and tenderness present. No deformity or signs of injury. Cervical back: Neck supple. No rigidity. Right lower leg: No edema. Left lower leg: No edema. Comments: Swelling and tenderness to right hand and wrist Lymphadenopathy: Cervical: No cervical adenopathy. Skin: General: Skin is warm and dry. Capillary Refill: Capillary refill takes less than 2 seconds. Coloration: Skin is not pale. Findings: No erythema or rash. Neurological: General: No focal deficit present. Mental Status: He is alert and oriented to person, place, and time. Mental status is at baseline. Cranial Nerves: No cranial nerve deficit. Motor: No weakness. Coordination: Coordination normal. Psychiatric: Mood and Affect: Mood normal. Behavior: Behavior normal. Thought Content: Thought content normal. Judgment: Judgment normal. Radiology: XR HAND 3+ VW RIGHT Preliminary Result EXAM: XR WRIST 3+ VW RIGHT, XR HAND 3+ VW RIGHT HISTORY: 43 years old Male with pain/swelling COMPARISON: None FINDINGS: Imaging of the right wrist and hand demonstrates no acute fracture or dislocation. The joint spaces are maintained. No lytic or blastic bony lesion is present. No aggressive bony destructive change or periosteal reaction is seen. Diffuse soft tissue swelling of the hand is noted. IMPRESSION Soft tissue swelling without acute osseous abnormality. Preliminary Report Dictated by Resident: Karthik Woodard XR WRIST 3+ VW RIGHT Preliminary Result EXAM: XR WRIST 3+ VW RIGHT, XR HAND 3+ VW RIGHT HISTORY: 43 years old Male with pain/swelling COMPARISON: None FINDINGS: Imaging of the right wrist and hand demonstrates no acute fracture or dislocation. The joint spaces are maintained. No lytic or blastic bony lesion is present. No aggressive bony destructive change or periosteal reaction is seen. Diffuse soft tissue swelling of the hand is noted. IMPRESSION Soft tissue swelling without acute osseous abnormality. Preliminary Report Dictated by Resident: Karthik Woodard XR CHEST 2 VW Final Result HISTORY: Swelling. TECHNIQUE: PA and lateral views of the chest are obtained. No prior chest study available for comparison. FINDINGS: No acute pneumonia detected. No pneumothorax or pleural effusion or pulmonary congestion. Cardiothoracic ratio of approximately 16.5/37.3 cm is consistent with normal cardiac size. CONCLUSIONS: No signs of acute cardiopulmonary disease. Lab Results: Lab Results CBC WITH DIFF - Abnormal Result Value Ref Range WBC 9.92 4.20 - 10.70 10*3/?L RBC 4.98 4.26 - 5.52 10*6/?L HGB 15.3 12.2 - 16.4 g/dL HCT 44.7 38.4 - 49.3 % MCV 89.8 81.7 - 95.6 fL MCH 30.7 26.1 - 32.7 pg MCHC 34.2 31.2 - 35.0 g/dL RDW-SD 41.0 38.5 - 51.6 fL RDW-CV 12.5 12.1 - 15.4 % PLT 348 (*) 150 - 328 10*3/?L MPV 9.0 (*) 9.8 - 13.0 fL NRBC/100 WBC 0.0 0.0 - 10.0 /100 WBCs NRBC x10 3 <0.01 10*3/?L GRAN MAT (NEUT) % 53.5 % IMM GRAN % 0.50 % LYMPH % 23.5 % MONO % 18.4 % EOS % 3.0 % BASO % 1.1 % GRAN MAT x10 3 (ANC) 5.30 1.99 - 6.95 10*3/uL IMM GRAN x10 3 0.05 0.00 - 0.06 10*3/uL LYMPH x10 3 2.33 1.09 - 3.23 10*3/uL MONO x10 3 1.83 (*) 0.36 - 1.02 10*3/uL EOS x10 3 0.30 0.06 - 0.53 10*3/uL BASO x10 3 0.11 (*) 0.01 - 0.09 10*3/uL COMP. METABOLIC PANEL (87199) - Abnormal NA 138 135 - 145 mmol/L K 4.2 3.5 - 5.0 mmol/L CL 97 (*) 98 - 108 mmol/L CO2 TOTAL 31 23 - 31 mmol/L AGAP 10 2 - 16 BUN 11 7 - 23 mg/dL GLUCOSE 118 (*) 70 - 110 mg/dL CREATININE 0.86 0.60 - 1.25 mg/dL TOTAL BILI 0.8 0.1 - 1.1 mg/dL CALCIUM 9.8 8.6 - 10.6 mg/dL T PROTEIN 9.5 (*) 6.3 - 8.2 g/dL ALBUMIN 5.0 3.5 - 5.0 g/dL ALK PHOS 68 34 - 122 U/L ALTv 45 5 - 50 U/L AST(SGOT) 29 13 - 40 U/L eGFR 110.2 mL/min/1.73m2 SEDIMENTATION RATE - Abnormal ESR 26 (*) 0 - 10 mm/HR EKG: If EKG completed, see Procedure Note. Orders and Treatments: Orders Placed This Encounter Procedures XR CHEST 2 VW XR HAND 3+ VW RIGHT XR WRIST 3+ VW RIGHT CBC WITH DIFF COMP. METABOLIC PANEL (51292) Sedimentation Rate Orders Placed This Encounter Medications HYDROcodone-acetaminophen (NORCO 5) tablet 2 tablet ceFAZolin (ANCEF) injection 1,000 mg dexamethasone sod phos PF injection 10 mg cephALEXin 500 mg capsule naproxen 375 mg tablet First Provider Eval: ED Events Date/Time Event User Comments 03/21/241355 Medical Screening Begins RICCI GUIDO DO -- 03/21/24 135 First Provider Evaluation RICCI GUIDO DO -- ED COURSE Diagnosis/Impression as of 03/21/241841 Hand swelling Cellulitis of right hand Procedures: Procedures MDM: Medical Decision Making Patient was evaluated for the complaint of SWELLING (Right hand/arm) Diagnoses considered but not limited to: Contusion Dislocation Fracture Sprain Strain DVT Cellulitis. arthritis Labs:were ordered, and resulted, any relevant abnormalities were considered. Imaging:Ordered, and resulted, any relevant abnormalities were considered. Procedures:were not performed. History, physical exam findings, results of visit, diagnosis, medication regimens and plan of future care have been considered. Additional MDM may be found in the ED course. Vital signs were rechecked before final disposition and determined to be stable. Amount and/or Complexity of Data Reviewed Labs: ordered. Decision-making details documented in ED Course. Radiology: ordered. Decision-making details documented in ED Course. Risk Prescription drug management. Flowsheet Documentation: Scoring Tools: No data recorded Disposition/Condition: ED Disposition ED Disposition Disch - Home Condition Stable Comment -- Discharge Medications: Patient's Medications START taking these medications CEPHALEXIN 500 MG CAPSULE Take 1 capsule by mouth 4 (four) times daily. NAPROXEN 375 MG TABLET Take 1 tablet by mouth in the morning and 1 tablet in the evening. Take with meals. CONTINUE taking these medications which have NOT CHANGED No medications on file START taking Modified Medications as Prescribed No medications on file STOP taking these medications No medications on file Follow-up: Contact information for follow-up your doctor Electronically signed by: Ricci Guido DO 03/21/241841 Formerly [facility]
[2024-10-22] MEDS ORDERED: dexAMETHasone 10 MG/ML VIAL ONE (21:55)
[2024-10-22] MEDS ORDERED: KETOROLAC 30 MG/ML INJ ONE (21:56)
--- NOTE | 2024-10-22 22:08 | RAD REPORT ---
EXAMINATION: Hip Left 2 View CLINICAL INDICATION: Male, 44 years old. PAIN COMPARISON: No prior exam. FINDINGS: No acute fracture. No malalignment/dislocation. Mild left acetabular degenerative changes. Other: n/a IMPRESSION: No acute osseous abnormality.
--- NOTE | 2024-10-22 22:15 | ER ---
Nurse's Notes [facility] Name: Manjeet Luna Age: 44 yrs Sex: Male : 1980 Arrival Date: 10/22/2024 Time: 19:50 Bed DX3 Private MD: Diagnosis: Pain in left hip Presentation: 10/22 20:25 Chief complaint: Patient states: left low back pain onset 1 month ago. Pt reports cm10 taking aleve with minimal relief. pt states that the pain is worse with movement. Coronavirus screen: Client denies travel out of the [place] in the last 14 days. Ebola Screen: Patient denies travel to an Ebola-affected area in the 21 days before illness onset. Initial Sepsis Screen: Does the patient meet any 2 criteria? HR > 90 bpm. Does the patient have a suspected source of infection? No. Patient's initial sepsis screen is negative. Risk Assessment: Do you want to hurt yourself or someone else? Patient reports no desire to harm self or others. Onset of symptoms was October 22, 2024. 20:25 Method Of Arrival: Ambulatory cm10 20:25 Acuity: AYAN 3 cm10 Triage Assessment: 20:26 General: Appears uncomfortable, Behavior is calm, cooperative. Pain: Complains of pain cm10 in left low back Pain radiates to left leg Pain currently is 9 out of 10 on a pain scale. Neuro: No deficits noted. Level of Consciousness is awake, alert, obeys commands, Oriented to person, place, time, situation, Appropriate for age. Respiratory: No deficits noted. Airway is patent Respiratory effort is even, unlabored, Respiratory pattern is regular, symmetrical. Historical: - Allergies: 20:26 No Known Allergies; cm10 - PMHx: 20:26 None; cm10 - PSHx: 20:26 Hemorrhoidectomy; cm10 - Immunization history:: Adult Immunizations up to date. - Infectious Disease History:: Denies. - Social history:: Smoking status: unknown. - Family history:: not pertinent. Screenin:23 [facility] ED Fall Risk Assessment (Adult) History of falling in the last 3 months, vc1 including since admission No falls in past 3 months (0 pts) Confusion or Disorientation No (0 pts) Intoxicated or Sedated No (0 pts) Impaired Gait No (0 pts) Mobility Assist Device Used No (0 pt) Altered Elimination No (0 pt) Score/Fall Risk Level 0 - 2 = Low Risk Oriented to surroundings, Maintained a safe environment, Educated pt \T\ family on fall prevention, incl call for assistance when getting out of bed. Abuse screen: Denies threats or abuse. Nutritional screening: No deficits noted. Tuberculosis screening: No symptoms or risk factors identified. Vital Signs: 20:25 BP 143 / 96; Pulse 106; Resp 18; Temp 99(O); Pulse Ox 97% on R/A; Weight 129.27 kg; cm10 Height 6 ft. 2 in. ; Pain 9/10; 20:25 Body Mass Index 36.59 (129.27 kg, 187.96 cm) cm10 20:25 Pain Scale: Adult cm10 ED Course: 19:53 Patient arrived in ED. im 19:58 Wero Urias MD is Attending Physician. rt 20:26 Triage completed. cm10 20:28 Arm band placed on right wrist. Patient placed in waiting room. cm10 21:47 Hip Left 2 View XRAY In Process Unspecified. EDMS 22:23 No provider procedures requiring assistance completed. Patient did not have IV access vc1 during this emergency room visit. 22:25 Patient has correct armband on for positive identification. Provided Education on: vc1 medications. Administered Medications: 22:11 Drug: Ketorolac IM 30 mg IM once Route: IM; Site: left deltoid; vc1 22:11 Drug: Dexamethasone IM 10 mg IM once Route: IM; Site: right deltoid; vc1 Medication: 22:24 VIS not applicable for this client. vc1 Outcome: 22:14 Discharge ordered by . rt 22:24 Discharged to home ambulatory, vc1 22:24 Condition: stable 22:24 Discharge instructions given to patient, Instructed on discharge instructions, follow up and referral plans. medication usage, 22:24 Demonstrated understanding of instructions, follow-up care, medications, Prescriptions given X 2, 22:25 Patient left the ED. vc1 Signatures: Dispatcher [employer] EDMS Germaine Calvin RN RN vc1 Wero Urias MD MD rt Alejandra Ozuna Clarissa, RN RN cm10 Corrections: (The following items were deleted from the chart) 20:28 20:25 BP 143 / 96; Pulse 106bpm; Resp 18bpm; Pulse Ox 97% RA; Temp 99F Oral; Pain 9/10, cm10 Adult; cm10
--- NOTE | 2024-10-22 22:15 | EDPHYS ---
Physician Documentation [facility] Name: Manjeet Luna Age: 44 yrs Sex: Male : 1980 Arrival Date: 10/22/2024 Time: 19:50 Bed DX3 Private MD: ED Physician Wero Urias HPI: 10/22 20:29 This 44 yrs old Male presents to ER via Ambulatory with complaints of Hip Pain - left, rt Low Back Pain. 20:29 Patient presents to the ED with a left low back pain rating to the left hip for about 1 rt month, states that the pain has been persistent. Has intermittent relief with ibuprofen, BC powder. The patient denies discrete orders, denies other acute complaint at this time, symptoms are moderate severity, aching nature, otherwise radiate, no other aggravating alleviating factors.. Historical: - Allergies: 20:26 No Known Allergies; cm10 - PMHx: 20:26 None; cm10 - PSHx: 20:26 Hemorrhoidectomy; cm10 - Immunization history:: Adult Immunizations up to date. - Infectious Disease History:: Denies. - Social history:: Smoking status: unknown. - Family history:: not pertinent. ROS: 20:29 Constitutional: Negative for fever, chills, and weight loss, Cardiovascular: Negative rt for chest pain, palpitations, and edema, Respiratory: Negative for shortness of breath, cough, wheezing, and pleuritic chest pain, Abdomen/GI: Negative for abdominal pain, nausea, vomiting, diarrhea, and constipation, 20:29 Back: Positive for pain with movement, Negative for injury or acute deformity, 20:29 MS/extremity: Positive for pain, Negative for injury or acute deformity, Exam: 20:29 Constitutional: This is a well developed, well nourished patient who is awake, alert, rt and in no acute distress. Head/Face: Normocephalic, atraumatic. Chest/axilla: Normal chest wall appearance and motion. Nontender with no deformity. No lesions are appreciated. Cardiovascular: Regular rate and rhythm with a normal S1 and S2. No gallops, murmurs, or rubs. Normal PMI, no JVD. No pulse deficits. Respiratory: Lungs have equal breath sounds bilaterally, clear to auscultation and percussion. No rales, rhonchi or wheezes noted. No increased work of breathing, no retractions or nasal flaring. Abdomen/GI: Soft, non-tender, with normal bowel sounds. No distension or tympany. No guarding or rebound. No evidence of tenderness throughout. Back: No spinal tenderness. No costovertebral tenderness. Full range of motion. Skin: Warm, dry with normal turgor. Normal color with no rashes, no lesions, and no evidence of cellulitis. MS/ Extremity: Pulses equal, no cyanosis. Neurovascular intact. Full, normal range of motion. Neuro: Awake and alert, GCS 15, oriented to person, place, time, and situation. Cranial nerves II-XII grossly intact. Motor strength 5/5 in all extremities. Sensory grossly intact. Cerebellar exam normal. Normal gait. Vital Signs: 20:25 BP 143 / 96; Pulse 106; Resp 18; Temp 99(O); Pulse Ox 97% on R/A; Weight 129.27 kg; cm10 Height 6 ft. 2 in. ; Pain 9/10; 20:25 Body Mass Index 36.59 (129.27 kg, 187.96 cm) cm10 20:25 Pain Scale: Adult cm10 MDM: 20:25 Medical Screening Exam initiated rt 22:15 Differential diagnosis: Sprain, radiculopathy, fracture. Data reviewed: vital signs, rt nurses notes, radiologic studies. Independent interpretation of the following test(s) in the Emergency Department X-Ray: My interpretation is No fracture seen on my interpretation of x-ray images. Counseling: I had a detailed discussion with the patient and/or guardian regarding the historical points, exam findings, and any diagnostic results supporting the discharge/admit diagnosis, radiology results, the need for outpatient follow up. Response to treatment: the patient's symptoms have markedly improved after treatment. 10/22 20:28 Order name: Hip Left 2 View XRAY; Complete Time: 22:09 rt Administered Medications: 22:11 Drug: Ketorolac IM 30 mg IM once Route: IM; Site: left deltoid; vc1 22:11 Drug: Dexamethasone IM 10 mg IM once Route: IM; Site: right deltoid; vc1 Disposition Summary: 10/22/24 22:14 Discharge Ordered Notes: Location: Home rt Problem: new rt Symptoms: have improved rt Condition: Stable rt Diagnosis - Pain in left hip rt Followup: rt - With: Private Physician - When: 2 - 3 days - Reason: Discharge Instructions: - Discharge Summary Sheet rt - Hip Pain rt Forms: - Medication Reconciliation Form rt - Antibiotic Education rt - Prescription Opioid Use rt - Patient Portal Instructions rt - Leadership Thank You Letter rt Prescriptions: - Cyclobenzaprine 10 mg Oral tablet - take 1 tablet ORAL route every 8 hours As needed; 15 tablet; Refills: 0, rt Product Selection Permitted - Medrol ([place]) 4 mg Oral Tablets, Dose Pack - take 1 tablet ORAL route as directed - follow package instructions; 1 packet; rt Refills: 0, Product Selection Permitted Signatures: Dispatcher [employer] Germaine Ruth RN RN vc1 Wero Urias MD MD rt Nadine Booker RN RN cm10
[2024-10-22 22:43] VITALS: BP 143/96; TEMP 99; O2SAT 97
== END 2024-10-22 22:25 | disposition home or self-care (01) ==
LOC: ER 19:50
DX: M25.552 Pain in left hip (principal); M54.50 Low back pain, unspecified
CPT/HCPCS: 73502; 96372; 99284; J1100

== ENCOUNTER 2024-10-31 19:53 | Emergency (ER) | payer OTHER, SELFPAY ==
--- NOTE | 2024-10-31 21:29 | EDPHYS ---
Physician Documentation [facility] Name: Manjeet Luna Age: 44 yrs Sex: Male : 1980 Arrival Date: 10/31/2024 Time: 19:53 Bed DX3 Private MD: ED Physician Vane Upton HPI: 10/31 21:24 This 44 yrs old Male presents to ER via Ambulatory with complaints of Low Back Pain, sp3 Buttock pain. 21:24 44-year-old male with no significant past medical history with recent sciatica/left sp3 lumbar radiculopathy symptoms last seen here October 22 and received IM NSAID and steroid and sent home with also relaxer and Medrol Dosepak now presents with recurrent symptoms. Patient has not had outpatient MRI or consultation in any way. He denies any injury, loss of bowel or bladder control, saddle anesthesia, numbness or tingling distally in either extremity, or any other signs or symptoms on ROS at this time.. Historical: - Allergies: 21:17 No Known Allergies; vc1 - Home Meds: 21:17 clindamycin HCl 300 mg Oral capsule 2 caps every 8 hours [Active]; vc1 - PMHx: 21:17 None; vc1 - PSHx: 21:17 Hemorrhoidectomy; vc1 - Immunization history:: Client reports having NOT received the Covid vaccine. Flu vaccine is up to date. - Infectious Disease History:: Denies. - Social history:: Smoking status: Reported history of juuling and/or vaping. ROS: 21:26 Constitutional: Negative for fever, chills, and weight loss, Eyes: Negative for injury, sp3 pain, redness, and discharge, ENT: Negative for injury, pain, and discharge, Neck: Negative for injury, pain, and swelling, Cardiovascular: Negative for chest pain, palpitations, and edema, Respiratory: Negative for shortness of breath, cough, wheezing, and pleuritic chest pain, Abdomen/GI: Negative for abdominal pain, nausea, vomiting, diarrhea, and constipation, MS/Extremity: Negative for injury and deformity, Psych: Negative for depression, anxiety, suicide ideation, homicidal ideation, and hallucinations, Allergy/Immunology: Negative for hives, rash, and allergies, Endocrine: Negative for neck swelling, polydipsia, polyuria, polyphagia, and marked weight changes, Hematologic/Lymphatic: Negative for swollen nodes, abnormal bleeding, and unusual bruising, 21:26 All other systems are negative, Exam: 21:26 Constitutional: This is a well developed, well nourished patient who is awake, alert, sp3 and in no acute distress. Head/Face: Normocephalic, atraumatic. Chest/axilla: Normal chest wall appearance and motion. Nontender with no deformity. No lesions are appreciated. Cardiovascular: Regular rate and rhythm with a normal S1 and S2. No gallops, murmurs, or rubs. Normal PMI, no JVD. No pulse deficits. Respiratory: Lungs have equal breath sounds bilaterally, clear to auscultation and percussion. No rales, rhonchi or wheezes noted. No increased work of breathing, no retractions or nasal flaring. Abdomen/GI: Soft, non-tender, with normal bowel sounds. No distension or tympany. No guarding or rebound. No evidence of tenderness throughout. Skin: Warm, dry with normal turgor. Normal color with no rashes, no lesions, and no evidence of cellulitis. Neuro: Awake and alert, GCS 15, oriented to person, place, time, and situation. Cranial nerves II-XII grossly intact. Motor strength 5/5 in all extremities. Sensory grossly intact. Cerebellar exam normal. Normal gait. Psych: Awake, alert, with orientation to person, place and time. Behavior, mood, and affect are within normal limits. 21:26 Musculoskeletal/extremity: Mild pain in the left buttock. Patient has pain on left leg elevation. Patient is ambulatory and has normal neurological exam.. Vital Signs: 21:13 BP 140 / 90; Pulse 90; Resp 18; Temp 96.4; Pulse Ox 90% ; Weight 129.27 kg; Height 6 vc1 ft. 2 in. ; Pain 8/10; 21:47 BP 138 / 88; Pulse 92; Resp 18; Pulse Ox 92% ; vc1 21:13 Body Mass Index 36.59 (129.27 kg, 187.96 cm) vc1 21:13 Pain Scale: Adult vc1 MDM: 20:07 Medical Screening Exam initiated sp3 21:27 Data reviewed: vital signs, nurses notes, old medical records. ED course: X-rays sp3 reviewed from prior visit. Differential diagnosis today includes sciatica versus lumbar radiculopathy. I have urged patient that he needs to seek outpatient follow-up with either PCP and/or orthopedics to get outpatient MRI to ascertain the root cause of his symptoms. Will give repeat ketorolac IM dose here and sent home on Flexeril and Medrol again.. Administered Medications: 21:46 Drug: Ketorolac IM 60 mg IM once {Note: 1 ml to left deltoid, 1 ml to right deltoid.} vc1 Route: IM; Site: Other; 21:47 Follow up: Response: Medication administered at discharge. vc1 Disposition Summary: 10/31/24 21:28 Discharge Ordered Notes: Location: Home sp3 Condition: Stable sp3 Diagnosis - Left lumbar radiculopathy sp3 Followup: sp3 - With: Private Physician - When: Upon discharge from the Emergency Department - Reason: Continuance of care Followup: sp3 - With: Stan Muñoz MD - When: Upon discharge from the Emergency Department - Reason: Recheck today's complaints Discharge Instructions: - Discharge Summary Sheet sp3 - Lumbosacral Radiculopathy sp3 Forms: - Medication Reconciliation Form sp3 - Antibiotic Education sp3 - Prescription Opioid Use sp3 - Patient Portal Instructions sp3 - Leadership Thank You Letter sp3 Prescriptions: - Medrol ([place]) 4 mg Oral Tablets, Dose Pack - take 1 tablet ORAL route as directed - follow package instructions; 1 packet; sp3 Refills: 0, Product Selection Permitted - Cyclobenzaprine 5 mg Oral Tablet - take 1 tablet ORAL route 3 times per day As needed; 15 tablet; Refills: 0, sp3 Product Selection Permitted Signatures: Vane Upton MD MD sp3 Germaine Calvin RN RN vc1
--- NOTE | 2024-10-31 21:29 | ER ---
Nurse's Notes [facility] Name: Manjeet Luna Age: 44 yrs Sex: Male : 1980 Arrival Date: 10/31/2024 Time: 19:53 Bed DX3 Private MD: Diagnosis: Left lumbar radiculopathy Presentation: 10/31 21:13 Chief complaint: Patient states: pain in bottom left buttock radiates into back. vc1 Coronavirus screen: Client denies travel out of the [place] in the last 14 days. At this time, the client does not indicate any symptoms associated with coronavirus-19. Ebola Screen: Patient negative for fever greater than or equal to 101.5 degrees Fahrenheit, and additional compatible Ebola Virus Disease symptoms Patient denies exposure to infectious person. Patient denies travel to an Ebola-affected area in the 21 days before illness onset. No symptoms or risks identified at this time. Initial Sepsis Screen: Does the patient meet any 2 criteria? No. Patient's initial sepsis screen is negative. Does the patient have a suspected source of infection? No. Patient's initial sepsis screen is negative. Risk Assessment: Do you want to hurt yourself or someone else? Patient reports no desire to harm self or others. Note Treated for sciatica approx 2 weeks ago, pt states medication helped, pain came back 2 days ago. Onset of symptoms was October 29, 2024. 21:13 Method Of Arrival: Ambulatory vc1 21:13 Acuity: AYAN 4 vc1 Triage Assessment: 21:18 General: Appears in no apparent distress. uncomfortable, Behavior is calm, cooperative, vc1 appropriate for age. Pain: Complains of pain in left gluteus erasto Pain radiates to left low back Pain currently is 8 out of 10 on a pain scale. EENT: No deficits noted. No signs and/or symptoms were reported regarding the EENT system. Neuro: Level of Consciousness is awake, alert, obeys commands, Oriented to person, place, time, situation, Appropriate for age. Cardiovascular: Heart tones S1 S2 present Capillary refill < 3 seconds Patient's skin is warm and dry. Respiratory: Airway is patent Respiratory effort is even, unlabored, Respiratory pattern is regular, symmetrical, Breath sounds are clear bilaterally. GI: No deficits noted. No signs and/or symptoms were reported involving the gastrointestinal system. : No deficits noted. No signs and/or symptoms were reported regarding the genitourinary system. Derm: Skin is intact, is healthy with good turgor, Skin is dry, Skin is normal, Skin temperature is warm. Musculoskeletal: Circulation, motion, and sensation intact. Range of motion: intact in all extremities, Reports pain in left low back Pain is 8 out of 10 on a pain scale. Historical: - Allergies: 21:17 No Known Allergies; vc1 - Home Meds: 21:17 clindamycin HCl 300 mg Oral capsule 2 caps every 8 hours [Active]; vc1 - PMHx: 21:17 None; vc1 - PSHx: 21:17 Hemorrhoidectomy; vc1 - Immunization history:: Client reports having NOT received the Covid vaccine. Flu vaccine is up to date. - Infectious Disease History:: Denies. - Social history:: Smoking status: Reported history of juuling and/or vaping. Screenin:17 [facility] ED Fall Risk Assessment (Adult) History of falling in the last 3 months, vc1 including since admission No falls in past 3 months (0 pts) Confusion or Disorientation No (0 pts) Intoxicated or Sedated No (0 pts) Impaired Gait Yes (1 pt) Mobility Assist Device Used No (0 pt) Altered Elimination No (0 pt) Score/Fall Risk Level 0 - 2 = Low Risk Oriented to surroundings, Maintained a safe environment, Educated pt \T\ family on fall prevention, incl call for assistance when getting out of bed, Assessed \T\ reinforced patient's understanding of fall precautions, Hourly rounding (assess needs \T\ fall precautionary measures) done. Abuse screen: Denies threats or abuse. Nutritional screening: No deficits noted. Tuberculosis screening: No symptoms or risk factors identified. Assessment: 21:46 General: see triage assessment. vc1 Vital Signs: 21:13 BP 140 / 90; Pulse 90; Resp 18; Temp 96.4; Pulse Ox 90% ; Weight 129.27 kg; Height 6 vc1 ft. 2 in. ; Pain 8/10; 21:47 BP 138 / 88; Pulse 92; Resp 18; Pulse Ox 92% ; vc1 21:13 Body Mass Index 36.59 (129.27 kg, 187.96 cm) vc1 21:13 Pain Scale: Adult vc1 ED Course: 19:55 Patient arrived in ED. im 20:07 Vane Upton MD is Attending Physician. sp3 21:17 Triage completed. vc1 21:17 Arm band placed on right wrist. vc1 21:18 Patient has correct armband on for positive identification. Bed in low position. Call vc1 light in reach. Provided Education on: plan of care. Pulse ox on. NIBP on. 21:28 Stan Muñoz MD is Referral Physician. sp3 21:47 No provider procedures requiring assistance completed. Patient did not have IV access vc1 during this emergency room visit. Administered Medications: 21:46 Drug: Ketorolac IM 60 mg IM once {Note: 1 ml to left deltoid, 1 ml to right deltoid.} vc1 Route: IM; Site: Other; 21:47 Follow up: Response: Medication administered at discharge. vc1 Medication: 21:22 VIS not applicable for this client. vc1 Outcome: 21:28 Discharge ordered by . sp3 21:47 Discharged to home ambulatory, vc1 21:47 Condition: stable 21:47 Discharge instructions given to patient, Instructed on discharge instructions, follow up and referral plans. medication usage, Demonstrated understanding of instructions, follow-up care, medications, Prescriptions given X 2, 21:48 Patient left the ED. vc1 Signatures: Vane Upton MD MD sp3 Germaine Calvin, JERI RN vc1 Alejandra Ozuna im
[2024-10-31] MEDS ORDERED: KETOROLAC 30 MG/ML INJ ONE (21:40)
[2024-10-31 22:08] VITALS: TEMP 96.4
[2024-10-31 22:10] VITALS: BP 138/88; O2SAT 92
== END 2024-10-31 21:48 | disposition home or self-care (01) ==
LOC: ER 19:53
DX: M54.16 Radiculopathy, lumbar region (principal)
CPT/HCPCS: 96372; 99284

== ENCOUNTER 2024-11-14 13:11 | Emergency (ER) | payer OTHER ==
--- OUTSIDE RECORDS SUMMARY | 2024-11-14 13:15 | XMS REPORT | Continuity of Care Document ---
Author Name Unknown Address [address] [place] [address] [facility] Address [address] [place] [address] Care Team Providers Care Leather Tanner Name Role Phone Pcp, Patient Does Not Have A Primary Care Physic berenice Campaigns, Generic Provider Attending Clinician Unavailable BILL PERDOMO Attending Clinician Unavailable BILL PERDOMO Attending Clinician Unavailable Bill Perdomo MD Attending Clinician +[phone] MAHESH SORTO Attending Clinician UnavailMAINE Kelly Attending Clinician Unavailable Maine Ramsey Attending Clinician [phone] RICCI GUIDO Attending Clinician Unavailable RICCI GUIDO Attending Clinician Unavailable Ricci Guido DO Attending Clinician +[phone] MAINE HEATH Admitting Clinician Unavailable RICCI GUIDO Admitting Clinician Unavailable Payers Payer Name Policy Type Policy Number Effective Date Expirati on Date Source [facility] D[facility]NY [facility]AY FOCUS 9 [id number] 2024 00:00:00 Allergies, Adverse Reactions, Alerts Allergy Name Allergy Type Status Severity Reaction(s) Onset Date Inactive Date Treating Clinician Comments Source NO KNOWN ALLERGIE S Drug Class Active [facility] Social History Social Habit Start Date Stop [...] 2022-10-12 21:30:19 2022-10-12 21:30:19 Male (finding) Ya Emma - External Sex assigned at 1980 00:00:00 1980 00:00:00 Ya Carter - External Smoking Status Start Date Stop Date Source Tobacco smoking consumption unknown [facility] Occasional tobacco smoker 2024-08-05 00:00:00 Ya Carter - External Medications Ordered Medication Name Filled Medication Name Start Date Stop Date Current Medication? Ordering Clinician Indication Dosage Frequency Signature (SIG) Comments Components Source oseltamivir (TAMIFLU) capsule 75 mg 08-30 18:15: 00 08-30 17:27 :00 No 75mg 75 mg, Oral, ONCE, 1 dose, On Mon08/30/24 at 1215, Routine [facility] acetaminoph en (TYLENOL) tablet 650 mg 08-30 18:15: 00 08-30 17:27 :00 No 650mg 650 mg, Oral, ONCE, 1 dose, On Mon08/30/24 at 1215, ARMANI [facility] oseltamivir (TAMIFLU) 75 mg capsule 08-30 00:00: 00 09-05 05:59 :00 Yes [id number] 75mg Take 1 capsule by mouth every 12 (twelve) hours for 5 days. [facility] busPIRone HCl 10 MG oral Tablet 08-05 10:30: 42 Yes 10mg Q.5D Take 1 tablet (10 mg total) by mouth 2 times daily. aY Carter - Externa l Amitriptyli ne HCl 150 MG oral Tablet 08-05 10:30: 42 Yes 150mg QD Take 1 tablet (150 mg total) by mouth nightly. Ya Emma hopkins methylPREDN ISolone (Medrol) 4 MG oral Tablet Therapy Pack 1- 00:00: 00 08-12 05:59 :00 No [id number] 1{davin} Take 1 davin by mouth See Admin Instructio ns for 6 days Use as directed.. Ya Emma hopkins furosemide 20 mg tablet 2023-07- 00:00: 00 07-25 05:59 :00 No [id number] 20mg Take 1 tablet by mouth every morning for 5 days. [facility] dexamethaso ne sod phos PF injection 10 mg 03-21 21:45: 00 03-21 22:53 :00 No 10mg 10 mg, Slow IV Push, ONCE, 1 dose, On Shana 03/21/24 at 1645, 1 mL [facility] ceFAZolin (ANCEF) injection 1,000 mg 03-21 21:45: 00 03-21 22:53 :00 No 1000mg 1,000 mg, Slow IV Push, ONCE, 1 dose, On Shana 03/21/24 at 1645, STAT, Reason for Anti-Infec tive: Documented Infection, Documented Infection Site: Skin / Soft Tissue, Duration of Therapy: Once (ED) [facility] HYDROcodone -acetaminop hen (NORCO 5) tablet 2 tablet 03-21 19:30: 00 03-21 20:07 :00 No 2{tbl} 2 tablet, Oral, ONCE, 1 dose, On Shana 03/21/24 at 1430, ARMANI [facility] cephALEXin 500 mg capsule 03-21 00:00: 00 Yes [id number] 500mg Take 1 capsule by mouth 4 (four) times daily. [facility] naproxen 375 mg tablet 03-21 00:00: 00 Yes [id number] 375mg Take 1 tablet by mouth in the morning and 1 tablet in the evening. Take with meals. [facility] Vital Signs Vital Name Observation Time Observation Value Comments S ource Systolic blood pressure 2024-08-30 16:47:00 135 mm[Hg] [facility] Diastolic blood pressure 2024-08-30 16:47:00 99 mm[Hg] [facility] Heart rate 2024-08-30 16:47:00 122 /min Unive [facility] Body temperature 2024-08-30 16:47:00 39.5 Avelina [facility] Respiratory rate 2024-08-30 16:47:00 18 /min [facility] Oxygen saturation in Arterial blood by Pulse oximetry 2024-08-30 16:47:00 94 /min [facility] Body height 2024-08-30 16:46:00 188 cm [facility] Body weight 2024-08-30 16:46:00 133.811 kg [facility] BMI 2024-08-30 16:46:00 37.88 kg/m2 [facility] Body height 2024-08-05 16:25:00 188 cm Jen ey Seybold - External Body weight 2024-08-05 16:25:00 138.801 kg Jen ey Seybold - External BMI 2024-08-05 16:25:00 39.29 kg/m2 Jen ey ybold - External Oxygen saturation in Arterial blood by Pulse oximetry 2024-07-19 21:49:00 92 /min [facility] Systolic blood pressure 2024-07-19 21:49:00 157 mm[Hg] [facility] Diastolic blood pressure 2024-07-19 21:49:00 104 mm[Hg] [facility] Heart rate 2024-07-19 21:49:00 88 /min Unive [facility] Body temperature 2024-07-19 21:49:00 37.28 Avelina [facility] Respiratory rate 2024-07-19 21:49:00 15 /min [facility] Body height 2024-07-19 17:53:00 185.4 cm [facility] Body weight 2024-07-19 17:53:00 124.739 kg [facility] BMI 2024-07-19 17:53:00 36.28 kg/m2 [facility] Systolic blood pressure 2024-03-21 23:45:00 130 mm[Hg] [facility] Diastolic blood pressure 2024-03-21 23:45:00 76 mm[Hg] [facility] Heart rate 2024-03-21 23:45:00 105 /min [facility] Body temperature 2024-03-21 23:45:00 37.44 Avelina [facility] Respiratory rate 2024-03-21 23:45:00 18 /min [facility] Oxygen saturation in Arterial blood by Pulse oximetry 2024-03-21 23:45:00 96 /min [facility] Body height 2024-03-21 17:43:00 185.4 cm [facility] Body weight 2024-03-21 17:43:00 131.543 kg [facility] BMI 2024-03-21 17:43:00 38.26 kg/m2 [facility] Procedures Procedure Date / Time Performed Performing Clinician Source INFLUENZA A/B RSV COVID NAAT 2024-08-30 17:19:00 Bill Perdomo [facility] BASIC METABOLIC PANEL (NA, K, CL, CO2, GLUCOSE, BUN, CREATININE, CA) 2024-07-19 21:40:00 [facility] CBC WITH DIFF 2024-07-19 21:40:00 [facility] N-TERMINAL PRO-BNP 2024-07-19 21:40:00 [facility] XR CHEST 2 VW 2024-07-19 19:23:00 Maine Heath [facility] COMP. METABOLIC PANEL (09660) 2024-03-21 20:14:00 Ricci Guido [facility] SEDIMENTATION RATE 2024-03-21 20:14:00 Lata Ricci [facility] CBC WITH DIFF 2024-03-21 20:14:00 Ricci Guido [facility] XR CHEST 2 VW 2024-03-21 20:01:47 Ricci Guido [facility] US DUPLEX VENOUS ARM RIGHT - BY VASCULAR LAB 2024-03-21 19:50:27 Ricci Guido [facility] Encounters Start Date/Time End Date/Time Encounter Type Admission Type Attending [facility] Care Department Encounter ID Source 2024-09-11 00:00:00 2024-09-11 11:36:00 Letter (Out) Campaigns, Generic Provider Campaigns, Generic Provider [facility] (SERINA) [id number] 350.1.13.10 4.2.7.2.686 [id number] [facility] 2024-08-30 10:47:00 2024-08-30 14:09:00 Emergency X BILL PERDOMO [facility] ERT [id number] [facility] 2024-08-30 10:47:00 2024-08-30 14:09:00 Emergency Bill Perdomo [facility] 1..840.114 350.1.13.10 4.2.7.2.686 [id number] [facility] 2024-08-12 13:10:00 2024-08-12 13:10:00 Outpatient MAHESH SORTO [id number] Ya [facility] 2024-08-05 10:20:00 2024-08-05 10:20:00 Outpatient MAHESH SORTO [id number] Ya [facility] 2024-08-05 10:05:00 2024-08-05 10:05:00 Outpatient YA HARVEY [id number] Ya [facility] 2024-08-02 00:00:00 2024-08-02 00:00:00 Outpatient MAHESH SORTO [id number] Ya [facility] 2024-07-31 00:00:00 2024-07-31 12:37:01 Letter (Out) Campaigns, Generic Provider Campaigns, Generic Provider [facility] (SERINA) 1.2.840.114 350.1.13.10 4.2.7.2.686 [id number] [facility] 2024-07-19 11:56:00 2024-07-19 16:32:00 Emergency X MAINE HEATH [facility] ERT [id number] [facility] 2024-07-19 11:56:00 2024-07-19 16:32:00 Emergency Maine Heath [facility] [id number] 350.1.13.10 4.2.7.2.686 [id number] [facility] 2024-03-21 12:44:00 2024-03-21 18:49:00 Emergency X RICCI GUIDO RICCI BENJAMIN ERT [id number] [facility] 2024-03-21 12:44:00 2024-03-21 18:49:00 Emergency Ricci Guido [facility] [id number] 350.1.13.10 4.2.7.2.686 [id number] [facility] Results Test Description Test Time Test Comments Results Result Co mments Source [facility] (NA, K, CL, CO2, GLUCOSE, BUN, CREATININE, CA)2024-07-19 22:01:58* Test Item Value Reference Range Interpretation Comme nts NA (test code = 9431444033) 143 mmol/L 135-145 K (test code = 1647558267) 4.2 mmol/L 3.5-5.0 CL (test code = 3250580999) 102 mmol/L 98-108 CO2 TOTAL (test code = 6731410354) 32 mmol/L 23-31 H AGAP (test code = 9818036439) 9 2-16 BUN (test code = 2182264609) 9 mg/dL 7-23 GLUCOSE (test code = 5882621188) 136 mg/dL 70-110 H CREATININE (test code = 2160-0) 0.84 mg/dL 0.60-1.25 CALCIUM (test code = 7252528303) 9.8 mg/dL 8.6-10.6 eGFR (test code = 91674-3) 111.0 mL/min/1.73m2 CKD-EPI eGFR (2020). Assuming creatinine has been stable day-to-day for at least three months, the eGFR indicates Category G1 (>= 90 mL/min/1.73 m2) Lab Interpretation (test code = 94081-8) Abnormal [facility] WITH [id number] 21:48:53* Test Item Value Reference Range Interpretation [...] 34.3 g/dL 31.2-35.0 RDW-SD (test code = 84987-4) 39.9 fL 38.5-51.6 RDW-CV (test code = 788-0) 12.6 % 12.1-15.4 PLT (test code = 777-3) 425 150-328 H MPV (test code = 68962-8) 8.4 fL 9.8-13.0 L NRBC/100 WBC (test code = 6913227501) 0.0 0.0-10.0 NRBC x10^3 (test code = 6256567279) See_Comment [Automated messa ge] The system which generated this result transmitted reference range: 10*3/?L. The reference range was not used to interpret this result as normal/abnormal. GRAN MAT (NEUT) % (test code = 770-8) 55.3 % IMM GRAN % (test code = 4003034425) 0.50 % LYMPH % (test code = 736-9) 27.8 % MONO % (test code = 5905-5) 8.2 % EOS % (test code = 713-8) 7.0 % BASO % (test code = 706-2) 1.2 % GRAN MAT x10^3(ANC) (test code = 1521946884) 4.12 10*3/uL 1.99-6.95 IMM GRAN x10^3 (test code = 1803210226) 0.04 10*3/uL 0.00-0.06 LYMPH x10^3 (test code = 731-0) 2.07 10*3/uL 1.09-3.23 MONO x10^3 (test code = 742-7) 0.61 10*3/uL 0.36-1.02 EOS x10^3 (test code = 711-2) 0.52 10*3/uL 0.06-0.53 BASO x10^3 (test code = 704-7) 0.09 10*3/uL 0.01-0.09 Lab Interpretation (test code = 19647-5) [facility] [id number] 21:02:50XR CHEST 2 VW COMPARISON: 03/21/2024 Ordering provider: MAINE HEATH CLINICAL INDICATIONS: leg swelling TECHNIQUE: Appropriate radiographic technique and conforming to ALARA FINDINGS: ? AP technique magnifies the cardiac silhouette but otherwise the heart andmediastinum are unremarkable. The lungs are without infiltrate or pleural fluid. The chest is otherwiseunremarkable.[facility] WITH [id number] 21:25:26* Test Item Value Reference Range Interpretation [...] 34.2 g/dL 31.2-35.0 RDW-SD (test code = 69325-7) 41.0 fL 38.5-51.6 RDW-CV (test code = 788-0) 12.5 % 12.1-15.4 PLT (test code = 777-3) 348 150-328 H MPV (test code = 41947-1) 9.0 fL 9.8-13.0 L NRBC/100 WBC (test code = 0762802140) 0.0 0.0-10.0 NRBC x10^3 (test code = 2504823550) See_Comment [Automated messa ge] The system which generated this result transmitted reference range: 10*3/?L. The reference range was not used to interpret this result as normal/abnormal. GRAN MAT (NEUT) % (test code = 770-8) 53.5 % IMM GRAN % (test code = 7511638538) 0.50 % LYMPH % (test code = 736-9) 23.5 % MONO % (test code = 5905-5) 18.4 % EOS % (test code = 713-8) 3.0 % BASO % (test code = 706-2) 1.1 % GRAN MAT x10^3(ANC) (test code = 8834176108) 5.30 10*3/uL 1.99-6.95 IMM GRAN x10^3 (test code = 3064190711) 0.05 10*3/uL 0.00-0.06 LYMPH x10^3 (test code = 731-0) 2.33 10*3/uL 1.09-3.23 MONO x10^3 (test code = 742-7) 1.83 10*3/uL 0.36-1.02 H EOS x10^3 (test code = 711-2) 0.30 10*3/uL 0.06-0.53 BASO x10^3 (test code = 704-7) 0.11 10*3/uL 0.01-0.09 H Lab Interpretation (test code = 86727-2) Abnormal [facility] [id number] 21:19:54* Test Item Value Reference Range Interpretation Comme nts ESR (test code = 57841-6) 26 0-10 H Lab Interpretation (test cod e = 56718-0) Abnormal [facility] (76371)2024-03-21 20:50:56* Test Item Value Reference Range Interpretation Comme nts NA (test code = 1211320775) 138 mmol/L 135-145 K (test code = 7099448645) 4.2 mmol/L 3.5-5.0 CL (test code = 5572140537) 97 mmol/L 98-108 L CO2 TOTAL (test code = 2577959337) 31 mmol/L 23-31 AGAP (test code = 2546630729) 10 2-16 BUN (test code = 7373558961) 11 mg/dL 7-23 GLUCOSE (test code = 5215695024) 118 mg/dL 70-110 H CREATININE (test code = 2160-0) 0.86 mg/dL 0.60-1.25 TOTAL BILI (test code = 4374821281) 0.8 mg/dL 0.1-1.1 CALCIUM (test code = 2735884532) 9.8 mg/dL 8.6-10.6 T PROTEIN (test code = 2318073764) 9.5 g/dL 6.3-8.2 H ALBUMIN (test code = 2456055665) 5.0 g/dL 3.5-5.0 ALK PHOS (test code = 0940040407) 68 U/L 34-122 ALTv (test code = 1742-6) 45 U/L 5-50 AST(SGOT) (test code = 9689345919) 29 U/L 13-40 eGFR (test code = 71858-2) 110.2 mL/min/1.73m2 CKD-EPI eGFR (2020). Assuming creatinine has been stable day-to-day for at least three months, the eGFR indicates Category G1 (>= 90 mL/min/1.73 m2) Lab Interpretation (test code = 87483-5) [facility]normal [facility] [id number] 20:03:19HISTORY: Swelling. TECHNIQUE: PA and lateral views of the chest are obtained. No prior cheststudy available for comparison. FINDINGS: No acute pneumonia detected. No pneumothorax or pleural effusionor pulmonary congestion. Cardiothoracic ratio of approximately 16.5/37.3 cmis consistent with normal cardiac size. CONCLUSIONS: No signs of acute cardiopulmonary disease.[facility] Notes Date/Time Note Provider Source 2024-08-30 14:08:49 Patient is discharged to home. VSS, NAD. Pt has been educated on signs and symptoms for returning to ER. PIV removed. No active bleeding. Pt told about RX, educated about RX. Pt ambulated out of ER with steady gait. INE CRATER Manjeet Silva RN [facility] 2024-08-30 10:47:54 Penny Childress is a 43 year old male that presents to the er with flu like s/s since last night. + for sick contacts that were flu + Pt has not taken any meds- pt has a temp of 1023.1f Degroot RN [facility] 2024-08-05 10:30:44 Chief Complaint Patient presents with Edema Swelling in right foot x 3 weeks no injuries states has swelling on occasion to other foot and knees and elbows states been going on for a while [phone] (home) Traci Quezada MA [facility] 2024-07-19 16:31:13 Pt discharged to home with [...] gait, in no apparent distress. Jones RN [facility] 2024-07-19 15:15:49 Lily WILCOX at bedside for US IV. [facility] 2024-07-19 13:40:00 Attempted blood draw and unsuccessful. 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 Charge nurse Sagrario WILCOX notified. [facility] 2024-07-19 13:30:00 Penny Childress is a 43 year old male brought in by friend with c/o right lower leg swelling x 1 week. [facility] 2024-07-19 13:20:00 Assumed care of Pt at this time from the lobby. 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 [facility] 2024-07-19 11:54:23 Penny Childress is a 43 year old male with BLE foot/ankle/leg swelling where pt reports he has had this condition for approx 1 year. Pt reports the swelling or fluid shifts form right leg to left and then to different hands. Pt denies pain or medical issues. Degroot RN [facility] 2024-03-21 18:45:59 [facility] Patient given printed and verbal discharge instructions [...] with steady gait in no apparent distress. [facility] 2024-03-21 12:43:10 Patient reports right hand swelling and pain for three days getting worse and traveling up arm. Ibuprofen last night. T [facility] 2024-03-21 12:42:00 [facility] Emergency Department Note Patient Name: Penny Childress Date of : 1980 43 year old male Treatment Room: [facility] Primary Care Physician: PATIENT DOES NOT HAVE [...] 0.01 - 0.09 10*3/uL COMP. METABOLIC PANEL (27905) - Abnormal NA 138 135 - 145 [...] RIGHT CBC WITH DIFF COMP. METABOLIC PANEL (20576) Sedimentation Rate Orders Placed This Encounter Medications [...] Electronically signed by: Ricci Guido DO 03/21/241841 [facility]
--- NOTE | 2024-11-14 14:14 | RAD REPORT ---
EXAM: Chest Single View HISTORY: 44 years Male CHEST PAIN COMPARISON: None. FINDINGS: LUNGS/PLEURA: The lungs are clear. No pleural effusions or pneumothorax. No pulmonary edema. CARDIAC/MEDIASTINUM: The cardiac silhouette is within normal limits. UPPER ABDOMEN: No significant abnormality. BONES: No acute abnormality. LINES/TUBES/OTHER: N/A IMPRESSION: No evidence of acute cardiopulmonary disease.
--- NOTE | 2024-11-14 15:26 | RAD REPORT ---
Extremity Venous Uni Ltd CLINICAL INDICATION: Male, 44 years old.SWELLING RIGHT TECHNIQUE: Complete duplex sonography of the lower extremity veins was performed of the affected limb . The examination included compression for vein patency, color Doppler imaging and flow augmentation in response to distal compression of the distal external iliac, common femoral, femoral, popliteal, peroneal, tibial and great saphenous veins. [id number]. COMPARISON: No prior exams FINDINGS: Duplex sonography imaging demonstrates all deep veins examined to be fully compressible with spontane ous, phasic and augmented flow in the affected limb. IMPRESSION: No evidence of deep venous thrombosis in the right lower extremity.
[2024-11-14] MEDS ORDERED: FUROSEMIDE 40 MG/4 ML VIAL ONE (16:09)
[2024-11-14] MEDS ORDERED: KETOROLAC 30 MG/ML INJ ONE (16:09)
[2024-11-14] MEDS ORDERED: dexAMETHasone 10 MG/ML VIAL ONE (16:09)
[2024-11-14 16:15] LABS: Absolute Basophils 0.1 K/uL (0-0.5); Absolute Eosinophils 0.3 K/uL (0-0.5); Absolute Lymphocytes (CBC) 1.7 K/uL (0.7-4.9); Absolute Monocytes 0.9 K/uL (0.1-1.3); Basophils % 0.9 % (0-1.3); Eosinophils % 2.8 % (0-4.4); Hematocrit 39.9 % (39.6-49.0); Hemoglobin 14.1 g/dL (13.6-17.9); Lymphocytes % 19.4 % (15.3-44.8); MCHC 35.3 g/dL (32.0-36.0); MCV 87.9 fL (80-100); MPV 6.8 fL (7.6-11.3); Monocytes % 10.2 % (3.3-12.3); Neutrophils % 66.7 % (41.7-73.7); Nucleated Red Blood Cells % 0.1 % (0-0); Platelets 363 thou/uL (152-406); RBC Red Blood Cell Count 4.54 M/uL (4.33-5.43); Red Cell Distribution Width 13.4 % (12.1-15.2)
[2024-11-14 16:35] LABS: Anion Gap 10.6 mEq/L (5.0-15.0); Potassium 3.6 mEq/L (3.5-5.1); Troponin High Sensitivity 4.9 pg/mL (<58.9)
--- NOTE | 2024-11-14 17:25 | EDPHYS ---
Physician Documentation [facility] Name: Manjeet Luna Age: 44 yrs Sex: Male : 1980 Arrival Date: 11/14/2024 Time: 13:11 Bed 17 Private MD: MARYA Physician Yogesh Khan HPI: 11/14 13:50 This 44 yrs old Male presents to ER via Wheelchair with complaints of foot swelling, sb4 Back Pain. 13:50 Patient reports recurrent flareups of left-sided sciatica. He has been seen here a few sb4 times the past couple months for this. States that it gets better with medications but then comes back. He does have an appointment with Ortho next month. However, he comes in today because he states now his right foot is swollen and painful. He is not sure if it is because he is compensating with his walking. He states that his feet do intermittently get swollen and sometimes his hands gotten swollen to. He denies any cardiac history. Has never been told that his swelling is related to his heart. He denies any shortness of breath or chest pain. Historical: - Allergies: 13:40 No Known Allergies; ss - Home Meds: 13:40 None [Active]; ss - PSHx: 13:40 Hemorrhoidectomy; ss - Immunization history:: Adult Immunizations up to date. - Infectious Disease History:: Denies. - Social history:: Smoking status: Reported history of juuling and/or vaping. ROS: 13:51 Constitutional: Negative for fever, chills, and weight loss, sb4 13:51 Back: Positive for decreased range of motion, pain at rest, pain with movement, radiated pain, of the left low back, 13:51 MS/extremity: Positive for swelling, of the right foot, 13:51 All other systems are negative, Exam: 13:51 Constitutional: This is a well developed, well nourished patient who is awake, alert, sb4 and in no acute distress. Head/Face: Normocephalic, atraumatic. Eyes: Extra-ocular motions intact. Periorbital areas with no swelling, redness, or edema. ENT: Mucous membranes moist. Respiratory: No increased work of breathing, no retractions or nasal flaring. Abdomen/GI: Soft, non-tender, no distension. Skin: Warm, dry with normal turgor. Normal color with no rashes, no lesions, and no evidence of cellulitis. 13:51 Cardiovascular: Rate: tachycardic, Rhythm: regular, Edema: pedal edema, that is moderate, Vital Signs: 13:38 BP 142 / 104; Pulse 112; Resp 17; Pulse Ox 97% on R/A; Weight 127.01 kg; Height 6 ft. 2 ss in. ; Pain 10/10; 18:28 BP 130 / 94; Pulse 86; Resp 17; Pulse Ox 97% ; ll1 13:38 Body Mass Index 35.95 (127.01 kg, 187.96 cm) ss 13:38 Pain Scale: Adult ss MDM: 13:19 Medical Screening Exam initiated sb4 17:42 Data reviewed: vital signs, nurses notes, lab test result(s), radiologic studies, and sb4 as a result, I will discharge patient. Care significantly affected by the following chronic conditions: Hypertension, Obesity. Counseling: I had a detailed discussion with the patient and/or guardian regarding the historical points, exam findings, and any diagnostic results supporting the discharge/admit diagnosis, the presence of at least one elevated blood pressure reading (>120/80) during this emergency department visit, lab results, radiology results, the need for outpatient follow up, for definitive care, to return to the emergency department if symptoms worsen or persist or if there are any questions or concerns that arise at home. 11/14 13:41 Order name: Basic Metabolic Panel; Complete Time: 16:36 4 11/14 13:41 Order name: CBC with Diff; Complete Time: 16:16 sb4 11/14 13:41 Order name: NT PRO-BNP; Complete Time: 16:36 sb4 11/14 13:41 Order name: Troponin HS; Complete Time: 16:36 4 11/14 13:41 Order name: XRAY Chest (1 view); Complete Time: 14:15 sb4 11/14 13:51 Order name: Extremity Venous Uni Ltd US; Complete Time: 15:27 sb4 11/14 13:41 Order name: IV Saline Lock; Complete Time: 16:21 sb4 11/14 13:41 Order name: Labs collected and sent; Complete Time: 16:21 sb4 11/14 13:41 Order name: O2 Per Protocol; Complete Time: 15:32 sb4 11/14 13:41 Order name: O2 Sat Monitoring; Complete Time: 15:32 sb4 Administered Medications: 16:21 Drug: Furosemide IVP 40 mg IVP once; give over 2 minutes Route: IVP; Site: right ll1 forearm; 18:46 Follow up: Response: No adverse reaction ll1 16:21 Drug: Ketorolac IVP 30 mg IVP once Route: IVP; Site: right forearm; ll1 18:46 Follow up: Response: No adverse reaction; Pain is decreased; RASS: Alert and Calm (0) ll1 16:21 Drug: Decadron - Dexamethasone IVP 10 mg IVP once Route: IVP; Site: right forearm; ll1 18:46 Follow up: Response: No adverse reaction ll1 Disposition: 11/15 15:43 Co-signature as Attending Physician, Yogesh Khan MD I agree with the assessment and izaiah plan of care. Disposition Summary: 11/14/24 17:24 Discharge Ordered Notes: Location: Home sb4 Problem: new sb4 Symptoms: have improved sb4 Condition: Stable sb4 Diagnosis - Sciatica, left side sb4 - Localized swelling, mass and lump, right lower limb sb4 Followup: sb4 - With: Private Physician - When: 1 week - Reason: Recheck today's complaints, Re-evaluation by your physician Discharge Instructions: - Discharge Summary Sheet sb4 - Sciatica sb4 - Peripheral Edema sb4 Forms: - Work release form db - Patient Portal Instructions sb4 - Leadership Thank You Letter sb4 Prescriptions: - Lasix 20 mg Oral tablet - take 1 tablet ORAL route every morning PRN fluid retention; 20 tablet; Refills: sb4 0, Product Selection Permitted - Diclofenac Sodium 75 mg Oral Tablet Sustained Release - take 1 tablet ORAL route 2 times per day; 30 tablet; Refills: 0, Product sb4 Selection Permitted - Prednisone 20 mg Oral Tablet - take 2 tablets ORAL route once daily for 5 days; 10 tablet; Refills: 0, Product sb4 Selection Permitted - methocarbamol 750 mg Oral tablet - take 2 tablets ORAL route 3 times per day; 20 tablet; Refills: 0, Product sb4 Selection Permitted Signatures: Dispatcher [employer] Yogesh Lange MD MD cha Blanchard, Shelby RN RN ss Nela Alicea RN RN ll1 Brown, Shelly, PA-C PA-C sb4
--- NOTE | 2024-11-14 17:25 | ER ---
Nurse's Notes [facility] Name: Manjeet Luna Age: 44 yrs Sex: Male : 1980 Arrival Date: 11/14/2024 Time: 13:11 Bed 17 Private MD: Diagnosis: Sciatica, left side;Localized swelling, mass and lump, right lower limb Presentation: 11/14 13:38 Chief complaint: Patient states: low back pain that radiates down leg and R foot pain ss and swelling that began 1 week ago. Coronavirus screen: Client denies travel out of the [place] in the last 14 days. Ebola Screen: Patient denies exposure to infectious person. Patient denies travel to an Ebola-affected area in the 21 days before illness onset. Initial Sepsis Screen: Does the patient meet any 2 criteria? No. Patient's initial sepsis screen is negative. Does the patient have a suspected source of infection? No. Patient's initial sepsis screen is negative. Risk Assessment: Do you want to hurt yourself or someone else? Patient reports no desire to harm self or others. Onset of symptoms was November 09, 2024. 13:38 Method Of Arrival: Wheelchair ss 13:38 Acuity: AYAN 3 ss Triage Assessment: 18:29 General: Appears in no apparent distress. Musculoskeletal: Circulation, motion, and ll1 sensation intact. Capillary refill < 3 seconds. Historical: - Allergies: 13:40 No Known Allergies; ss - Home Meds: 13:40 None [Active]; ss - PSHx: 13:40 Hemorrhoidectomy; ss - Immunization history:: Adult Immunizations up to date. - Infectious Disease History:: Denies. - Social history:: Smoking status: Reported history of juuling and/or vaping. Screenin:29 [facility] ED Fall Risk Assessment (Adult) History of falling in the last 3 months, ll1 including since admission No falls in past 3 months (0 pts) Confusion or Disorientation No (0 pts) Intoxicated or Sedated No (0 pts) Impaired Gait Yes (1 pt) Mobility Assist Device Used Yes (1 pt) Altered Elimination No (0 pt) Score/Fall Risk Level 0 - 2 = Low Risk Maintained a safe environment, Hourly rounding (assess needs \T\ fall precautionary measures) done. Abuse screen: Denies threats or abuse. Nutritional screening: No deficits noted. Tuberculosis screening: No symptoms or risk factors identified. Assessment: 16:22 General: Appears uncomfortable, Behavior is calm, cooperative, appropriate for age. ll1 Pain: Complains of pain in left leg Pain currently is 10 out of 10 on a pain scale. Quality of pain is described as aching. Musculoskeletal: Reports pain in back and left leg. 18:29 Neuro: No deficits noted. Level of Consciousness is awake, alert, obeys commands. GI: ll1 Bowel sounds present X 4 quads. Abd is soft and non tender X 4 quads. Vital Signs: 13:38 BP 142 / 104; Pulse 112; Resp 17; Pulse Ox 97% on R/A; Weight 127.01 kg; Height 6 ft. 2 ss in. ; Pain 10/10; 18:28 BP 130 / 94; Pulse 86; Resp 17; Pulse Ox 97% ; ll1 13:38 Body Mass Index 35.95 (127.01 kg, 187.96 cm) ss 13:38 Pain Scale: Adult ss ED Course: 13:17 Patient arrived in ED. al6 13:18 Shelly Mederos PA-C is PHCP. sb4 13:18 Yogesh Khan MD is Attending Physician. sb4 13:40 Triage completed. ss 13:40 Arm band placed on right wrist. ss 14:12 XRAY Chest (1 view) In Process Unspecified. EDMS 14:46 Extremity Venous [facility] [employer] US In Process Unspecified. EDMS 15:31 Patient placed in an exam room, on a stretcher. ll1 15:41 Nela Alicea, JERI is Primary Nurse. ll1 15:42 Missed attempt(s): 22 gauge in right upper arm. Bleeding controlled, band aid applied, ll1 catheter tip intact. 16:07 Accessed peripheral vein via ultrasound, utilizing dynamic ultrasound technique R AC ss using 20G Nexia IV catheter ,sterile technique, per hospital protocol. Clean \T\ dry. Good blood return. Flushes easily. 16:22 Patient has correct armband on for positive identification. Provided Education on: ER ll1 procedures and process. 18:29 No provider procedures requiring assistance completed. IV discontinued, intact, ll1 bleeding controlled, No redness/swelling at site. Pressure dressing applied. Administered Medications: 16:21 Drug: Furosemide IVP 40 mg IVP once; give over 2 minutes Route: IVP; Site: right ll1 forearm; 18:46 Follow up: Response: No adverse reaction ll1 16:21 Drug: Ketorolac IVP 30 mg IVP once Route: IVP; Site: right forearm; ll1 18:46 Follow up: Response: No adverse reaction; Pain is decreased; RASS: Alert and Calm (0) ll1 16:21 Drug: Decadron - Dexamethasone IVP 10 mg IVP once Route: IVP; Site: right forearm; ll1 18:46 Follow up: Response: No adverse reaction ll1 Medication: 18:29 VIS not applicable for this client. ll1 Outcome: 17:24 Discharge ordered by . sb4 18:29 Patient left the ED. ll1 18:29 Discharged to home via wheelchair, ll1 18:29 Condition: stable 18:29 Discharge instructions given to patient, family, Instructed on discharge instructions, follow up and referral plans. no drinking with medication, no driving heavy equipment, medication usage, Demonstrated understanding of instructions, follow-up care, medications, Prescriptions given X 4, Signatures: Dispatcher [employer] EDRose Toure RN RN ss Lewis, Lynsay, RN RN ll1 Shelly Mederos PA-C PA-C sb4 Roslyn Butler
[2024-11-14 18:49] VITALS: BP 142/104; O2SAT 97
== END 2024-11-14 18:29 | disposition home or self-care (01) ==
LOC: ER 13:11
DX: M54.32 Sciatica, left side (principal); R22.41 Localized swelling, mass and lump, right lower limb
CPT/HCPCS: 85025; 80048; 36415; 84484; 83880; 71045; 93971; 96375; 96374; 99284; J1938; J1100

== ENCOUNTER 2024-12-10 10:54 | Emergency (ER) | payer OTHER ==
--- OUTSIDE RECORDS SUMMARY | 2024-12-10 10:58 | XMS REPORT | Continuity of Care Document ---
Author Name Unknown Address [address] [address] [place] [address] [facility] Address [address] [place] [address] Care Team Providers Care Vp Transportation Name Role Phone Pcp, Patient Does Not Have A Primary Care Physic berenice Campaigns, Generic Provider Attending Clinician Unavailable BILL PERDOMO Attending Clinician Unavailable BILL PERDOMO Attending Clinician Unavailable Bill Perdomo MD Attending Clinician +[phone] MAHESH SORTO Attending Clinician UnavailMAINE Kelly Attending Clinician Unavailable Maine Ramsey Attending Clinician [phone] RICCI GUIDO Attending Clinician Unavailable RICCI GUIDO Attending Clinician Unavailable Ricci Guido DO Attending Clinician +[phone] MAINE HEATH Admitting Clinician Unavailable RICCI GUIDO Admitting Clinician Unavailable Payers Payer Name Policy Type Policy Number Effective Date Expirati on Date Source [facility] DANNY HARRIS COPAY FOCUS 9 [id number] 2024 00:00:00 Allergies, Adverse Reactions, Alerts Allergy Name Allergy Type Status Severity Reaction(s) Onset Date Inactive Date Treating Clinician Comments Source NO KNOWN ALLERGIE S Drug Class Active [facility] [place] Social History Social Habit Start Date Stop [...] Stop Date Source Tobacco smoking consumption unknown [facility] Occasional tobacco smoker 2024-08-05 00:00:00 Ya Carter - External Medications Ordered Medication Name Filled Medication Name Start Date Stop Date Current Medication? Ordering Clinician Indication Dosage Frequency Signature (SIG) Comments Components Source oseltamivir (TAMIFLU) capsule 75 mg 08-30 18:15: 00 08-30 17:27 :00 No 75mg 75 mg, Oral, ONCE, 1 dose, On Mon08/30/24 at 1215, Routine [facility] acetaminoph en (TYLENOL) tablet 650 mg 08-30 18:15: 00 08-30 17:27 :00 No 650mg 650 mg, Oral, ONCE, 1 dose, On Mon08/30/24 at 1215, ARMANI [facility] oseltamivir (TAMIFLU) 75 mg capsule 08-30 00:00: 00 09-05 05:59 :00 No [id number] 75mg Take 1 capsule by mouth every 12 (twelve) hours for 5 days. [facility] busPIRone HCl 10 MG oral Tablet 08-05 [...] 1- 00:00: 00 08-12 05:59 :00 No [id number] 1{davin} Take 1 davin by mouth See Admin Instructio ns for 6 days Use as directed.. Ya Emma hopkins furosemide 20 mg tablet 2023-07- 00:00: 00 07-25 05:59 :00 No [id number] 20mg Take 1 tablet by mouth every morning for 5 days. [facility] dexamethaso ne sod phos PF injection 10 mg 03-21 21:45: 00 03-21 22:53 :00 No 10mg 10 mg, Slow IV Push, ONCE, 1 dose, On Shana 03/21/24 at 1645, 1 mL [facility] ceFAZolin (ANCEF) injection 1,000 mg 03-21 21:45: 00 03-21 22:53 :00 No 1000mg 1,000 mg, Slow IV Push, ONCE, 1 dose, On Shana 03/21/24 at 1645, STAT, Reason for Anti-Infec tive: Documented Infection, Documented Infection Site: Skin / Soft Tissue, Duration of Therapy: Once (ED) [facility] HYDROcodone -acetaminop hen (NORCO 5) tablet 2 tablet 03-21 19:30: 00 03-21 20:07 :00 No 2{tbl} 2 tablet, Oral, ONCE, 1 dose, On Shana 03/21/24 at 1430, ARMANI [facility] cephALEXin 500 mg capsule 03-21 00:00: 00 Yes [id number] 500mg Take 1 capsule by mouth 4 (four) times daily. [facility] naproxen 375 mg tablet 03-21 00:00: 00 Yes [id number] 375mg Take 1 tablet by mouth in the morning and 1 tablet in the evening. Take with meals. [facility] Vital Signs Vital Name Observation Time Observation Value Comments S ource Systolic blood pressure 2024-08-30 16:47:00 135 mm[Hg] [facility] Diastolic blood pressure 2024-08-30 16:47:00 99 mm[Hg] [facility] Heart rate 2024-08-30 16:47:00 122 /min Unive [facility] Body temperature 2024-08-30 16:47:00 39.5 Avelina [facility] Respiratory rate 2024-08-30 16:47:00 18 /min [facility] Oxygen saturation in Arterial blood by Pulse oximetry 2024-08-30 16:47:00 94 /min [facility] Body height 2024-08-30 16:46:00 188 cm [facility] Body weight 2024-08-30 16:46:00 133.811 kg [facility] BMI 2024-08-30 16:46:00 37.88 kg/m2 [facility] Body height 2024-08-05 16:25:00 188 cm Jen ey Sey[facility] - External Body weight 2024-08-05 16:25:00 138.801 kg Jen ey Seybold - External BMI 2024-08-05 16:25:00 39.29 kg/m2 Jen ey ybold - External Oxygen saturation in Arterial blood by Pulse oximetry 2024-07-19 21:49:00 92 /min [facility] Systolic blood pressure 2024-07-19 21:49:00 157 mm[Hg] [facility] Diastolic blood pressure 2024-07-19 21:49:00 104 mm[Hg] [facility] Heart rate 2024-07-19 21:49:00 88 /min Unive [facility] Body temperature 2024-07-19 21:49:00 37.28 Avelina [facility] Respiratory rate 2024-07-19 21:49:00 15 /min [facility] Body height 2024-07-19 17:53:00 185.4 cm [facility] Body weight 2024-07-19 17:53:00 124.739 kg [facility] BMI 2024-07-19 17:53:00 36.28 kg/m2 [facility] Systolic blood pressure 2024-03-21 23:45:00 130 mm[Hg] [facility] Diastolic blood pressure 2024-03-21 23:45:00 76 mm[Hg] [facility] Heart rate 2024-03-21 23:45:00 105 /min [facility] Body temperature 2024-03-21 23:45:00 37.44 Avelina [facility] Respiratory rate 2024-03-21 23:45:00 18 /min [facility] Oxygen saturation in Arterial blood by Pulse oximetry 2024-03-21 23:45:00 96 /min [facility] Body height 2024-03-21 17:43:00 185.4 cm [facility] Body weight 2024-03-21 17:43:00 131.543 kg [facility] BMI 2024-03-21 17:43:00 38.26 kg/m2 [facility] Procedures Procedure Date / Time Performed Performing Clinician Source INFLUENZA A/B RSV COVID NAAT 2024-08-30 17:19:00 Bill Perdomo [facility] BASIC METABOLIC PANEL (NA, K, CL, CO2, GLUCOSE, BUN, CREATININE, CA) 2024-07-19 21:40:00 [facility] CBC WITH DIFF 2024-07-19 21:40:00 [facility] N-TERMINAL PRO-BNP 2024-07-19 21:40:00 [facility] XR CHEST 2 VW 2024-07-19 19:23:00 Maine Heath [facility] COMP. METABOLIC PANEL (91664) 2024-03-21 20:14:00 Ricci Guido [facility] SEDIMENTATION RATE 2024-03-21 20:14:00 Lata Ricci [facility] CBC WITH DIFF 2024-03-21 20:14:00 Ricci Guido [facility] XR CHEST 2 VW 2024-03-21 20:01:47 Ricci uGido [facility] US DUPLEX VENOUS ARM RIGHT - BY VASCULAR LAB 2024-03-21 19:50:27 Ricci Guido [facility] Encounters Start Date/Time End Date/Time Encounter Type Admission Type Attending [facility] Care Department Encounter ID Source 2024-09-11 00:00:00 2024-09-11 11:36:00 Letter (Out) Campaigns, Generic Provider Campaigns, Generic Provider [facility] (SERINA) [id number] 350.1.13.10 4.2.7.2.686 [id number] [facility] 2024-08-30 10:47:00 2024-08-30 14:09:00 Emergency X BILL PERDOMO [facility] ERT [id number] [facility] 2024-08-30 10:47:00 2024-08-30 14:09:00 Emergency Bill Perdomo [facility] 1..840.114 350.1.13.10 4.2.7.2.686 [id number] [facility] 2024-08-12 13:10:00 2024-08-12 13:10:00 Outpatient MAHESH SORTO [id number] Ya [facility] 2024-08-05 10:20:00 2024-08-05 10:20:00 Outpatient MAHESH SORTO [id number] Ya [facility] 2024-08-05 10:05:00 2024-08-05 10:05:00 Outpatient YA HARVEY [id number] Ya [facility] 2024-08-02 00:00:00 2024-08-02 00:00:00 Outpatient MAHESH SORTO [id number] Ya [facility] 2024-07-31 00:00:00 2024-07-31 12:37:01 Letter (Out) Campaigns, Generic Provider Campaigns, Generic Provider [facility] ([facility]) 1.2.840.114 350.1.13.10 4.2.7.2.686 [id number] [facility] 2024-07-19 11:56:00 2024-07-19 16:32:00 Emergency X MAINE HEATH I[facility] ERT [id number] [facility] 2024-07-19 11:56:00 2024-07-19 16:32:00 Emergency Maine Heath [facility] 1.2.840.114 350.1.13.10 4.2.7.2.686 [id number] [facility] 2024-03-21 12:44:00 2024-03-21 18:49:00 Emergency X RICCI GUIDO RICCI BENJAMIN ERT [id number] [facility] 2024-03-21 12:44:00 2024-03-21 18:49:00 Emergency Ricci Guido [facility] [id number] 350.1.13.10 4.2.7.2.686 [id number] [facility] Results Test Description Test Time Test Comments Results Result Co mments Source [facility] (NA, K, CL, CO2, GLUCOSE, BUN, CREATININE, CA)2024-07-19 22:01:58* Test Item Value Reference Range Interpretation Comme nts NA (test code = 1096482885) 143 mmol/L 135-145 K (test code = 9657988900) 4.2 mmol/L 3.5-5.0 CL (test code = 3529583449) 102 mmol/L 98-108 CO2 TOTAL (test code = 4038853926) 32 mmol/L 23-31 H AGAP (test code = 9833809330) 9 2-16 BUN (test code = 7751748436) 9 mg/dL 7-23 GLUCOSE (test code = 3538188444) 136 mg/dL 70-110 H CREATININE (test code = 2160-0) 0.84 mg/dL 0.60-1.25 CALCIUM (test code = 5647939583) 9.8 mg/dL 8.6-10.6 eGFR (test code = 95548-8) 111.0 mL/min/1.73m2 CKD-EPI eGFR (2020). Assuming creatinine has been stable day-to-day for at least three months, the eGFR indicates Category G1 (>= 90 mL/min/1.73 m2) Lab Interpretation (test code = 82865-7) Abnormal [facility] WITH [id number] 21:48:53* Test Item Value Reference Range Interpretation [...] 34.3 g/dL 31.2-35.0 RDW-SD (test code = 22979-9) 39.9 fL 38.5-51.6 RDW-CV (test code = 788-0) 12.6 % 12.1-15.4 PLT (test code = 777-3) 425 150-328 H MPV (test code = 31323-0) 8.4 fL 9.8-13.0 L NRBC/100 WBC (test code = 0939561380) 0.0 0.0-10.0 NRBC x10^3 (test code = 0718613905) See_Comment [Automated messa ge] The system which generated this result transmitted reference range: 10*3/?L. The reference range was not used to interpret this result as normal/abnormal. GRAN MAT (NEUT) % (test code = 770-8) 55.3 % IMM GRAN % (test code = 7752244674) 0.50 % LYMPH % (test code = 736-9) 27.8 % MONO % (test code = 5905-5) 8.2 % EOS % (test code = 713-8) 7.0 % BASO % (test code = 706-2) 1.2 % GRAN MAT x10^3(ANC) (test code = 3355051553) 4.12 10*3/uL 1.99-6.95 IMM GRAN x10^3 (test code = 4076091800) 0.04 10*3/uL 0.00-0.06 LYMPH x10^3 (test code = 731-0) 2.07 10*3/uL 1.09-3.23 MONO x10^3 (test code = 742-7) 0.61 10*3/uL 0.36-1.02 EOS x10^3 (test code = 711-2) 0.52 10*3/uL 0.06-0.53 BASO x10^3 (test code = 704-7) 0.09 10*3/uL 0.01-0.09 Lab Interpretation (test code = 87663-6) [facility] [id number] 21:02:50XR CHEST 2 VW COMPARISON: 03/21/2024 Ordering provider: MAINE HEATH CLINICAL INDICATIONS: leg swelling TECHNIQUE: Appropriate radiographic technique and conforming to ALARA FINDINGS: ? AP technique magnifies the cardiac silhouette but otherwise the heart andmediastinum are unremarkable. The lungs are without infiltrate or pleural fluid. The chest is otherwiseunremarkable.[facility] WITH [id number] 21:25:26* Test Item Value Reference Range Interpretation [...] 34.2 g/dL 31.2-35.0 RDW-SD (test code = 32099-9) 41.0 fL 38.5-51.6 RDW-CV (test code = 788-0) 12.5 % 12.1-15.4 PLT (test code = 777-3) 348 150-328 H MPV (test code = 71347-5) 9.0 fL 9.8-13.0 L NRBC/100 WBC (test code = 9056698200) 0.0 0.0-10.0 NRBC x10^3 (test code = 6432938404) See_Comment [Automated messa ge] The system which generated this result transmitted reference range: 10*3/?L. The reference range was not used to interpret this result as normal/abnormal. GRAN MAT (NEUT) % (test code = 770-8) 53.5 % IMM GRAN % (test code = 1389057768) 0.50 % LYMPH % (test code = 736-9) 23.5 % MONO % (test code = 5905-5) 18.4 % EOS % (test code = 713-8) 3.0 % BASO % (test code = 706-2) 1.1 % GRAN MAT x10^3(ANC) (test code = 3803063605) 5.30 10*3/uL 1.99-6.95 IMM GRAN x10^3 (test code = 7505109617) 0.05 10*3/uL 0.00-0.06 LYMPH x10^3 (test code = 731-0) 2.33 10*3/uL 1.09-3.23 MONO x10^3 (test code = 742-7) 1.83 10*3/uL 0.36-1.02 H EOS x10^3 (test code = 711-2) 0.30 10*3/uL 0.06-0.53 BASO x10^3 (test code = 704-7) 0.11 10*3/uL 0.01-0.09 H Lab Interpretation (test code = 52395-1) [facility] [id number] 21:19:54* Test Item Value Reference Range Interpretation Comme nts ESR (test code = 52942-1) 26 0-10 H Lab Interpretation (test cod e = 18910-5) [facility] (48803)2024-03-21 20:50:56* Test Item Value Reference Range Interpretation Comme nts NA (test code = 6294385136) 138 mmol/L 135-145 K (test code = 6714685774) 4.2 mmol/L 3.5-5.0 CL (test code = 7359725202) 97 mmol/L 98-108 L CO2 TOTAL (test code = 1932874715) 31 mmol/L 23-31 AGAP (test code = 2982948933) 10 2-16 BUN (test code = 8470920956) 11 mg/dL 7-23 GLUCOSE (test code = 1838406861) 118 mg/dL 70-110 H CREATININE (test code = 2160-0) 0.86 mg/dL 0.60-1.25 TOTAL BILI (test code = 5852982496) 0.8 mg/dL 0.1-1.1 CALCIUM (test code = 3309733624) 9.8 mg/dL 8.6-10.6 T PROTEIN (test code = 3890613517) 9.5 g/dL 6.3-8.2 H ALBUMIN (test code = 1470433116) 5.0 g/dL 3.5-5.0 ALK PHOS (test code = 4222662808) 68 U/L 34-122 ALTv (test code = 1742-6) 45 U/L 5-50 AST(SGOT) (test code = 8574484052) 29 U/L 13-40 eGFR (test code = 31221-6) 110.2 mL/min/1.73m2 CKD-EPI eGFR (2020). Assuming creatinine has been stable day-to-day for at least three months, the eGFR indicates Category G1 (>= 90 mL/min/1.73 m2) Lab Interpretation (test code = 10231-3) [facility] 2 [id number] 20:03:19HISTORY: Swelling. TECHNIQUE: PA and lateral views of the chest are obtained. No prior cheststudy available for comparison. FINDINGS: No acute pneumonia detected. No pneumothorax or pleural effusionor pulmonary congestion. Cardiothoracic ratio of approximately 16.5/37.3 cmis consistent with normal cardiac size. CONCLUSIONS: No signs of acute cardiopulmonary disease.[facility] Notes Date/Time Note Provider Source 2024-08-30 14:08:49 Patient is discharged to home. VSS, NAD. Pt has been educated on signs and symptoms for returning to ER. PIV removed. No active bleeding. Pt told about RX, educated about RX. Pt ambulated out of ER with steady gait. RE REFINISHER AND REPAIRER Manjeet Silva RN [facility] 2024-08-30 10:47:54 Penny Childress is a 43 year old male that presents to the er with flu like s/s since last night. + for sick contacts that were flu + Pt has not taken any meds- pt has a temp of 1023.1f Degroot RN [facility] 2024-08-05 10:30:44 Chief Complaint Patient presents with Edema Swelling in right foot x 3 weeks no injuries states has swelling on occasion to other foot and knees and elbows states been going on for a while [phone] (home) Traci Quezada MA [facility] 2024-07-19 16:31:13 Pt discharged to home with [...] gait, in no apparent distress. Jones RN [facility] 2024-07-19 15:15:49 Lily WILCOX at bedside for US IV. [facility] 2024-07-19 13:40:00 Attempted blood draw and unsuccessful. 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 Charge nurse Sagrario WILCOX notified. [facility] 2024-07-19 13:30:00 Penny Childress is a 43 year old male brought in by friend with c/o right lower leg swelling x 1 week. [facility] 2024-07-19 13:20:00 Assumed care of Pt at this time from the lobby. 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 [facility] 2024-07-19 11:54:23 Penny Childress is a 43 year old male with BLE foot/ankle/leg swelling where pt reports he has had this condition for approx 1 year. Pt reports the swelling or fluid shifts form right leg to left and then to different hands. Pt denies pain or medical issues. Degroot RN [facility] 2024-03-21 18:45:59 [facility]. Patient given printed and verbal discharge instructions [...] with steady gait in no apparent distress. [facility] 2024-03-21 12:43:10 Patient reports right hand swelling and pain for three days getting worse and traveling up arm. Ibuprofen last night. T [facility] 2024-03-21 12:42:00 [facility] Emergency Department Note Patient Name: Penny Childress Date of : 1980 43 year old male Treatment Room: [facility] Primary Care Physician: PATIENT DOES NOT [...] 0.01 - 0.09 10*3/uL COMP. METABOLIC PANEL (42867) - Abnormal NA 138 135 - 145 [...] RIGHT CBC WITH DIFF COMP. METABOLIC PANEL (15823) Sedimentation Rate Orders Placed This Encounter Medications [...] Electronically signed by: Ricci Guido DO 03/21/241841 [facility]
--- NOTE | 2024-12-10 11:48 | RAD REPORT ---
EXAM:Extremity Venous Uni Ltd HISTORY: Left leg swelling TECHNIQUE: Sonographic evaluation left lower extremity performed.Grayscale, color and spectral analys is performed on all vessels COMPARISON: None . FINDINGS: Left common femoral, superficial femoral, greater saphenous, popliteal and posterior tibial veins are compressible and demonstrate augmentation. Doppler demonstrates good flow. 5 x 3 cm Hardy's cyst IMPRESSION: No evidence of deep venous thrombosis involving the left lower extremity. 5 cm Hardy's cyst
--- NOTE | 2024-12-10 12:36 | ER ---
Nurse's Notes [facility] Name: Manjeet Luna Age: 44 yrs Sex: Male : 1980 Arrival Date: 12/10/2024 Time: 10:54 Bed 24 Private MD: Diagnosis: Dependent edema, left foot swelling Presentation: 12/10 11:04 Chief complaint: Patient states: LEFT FOOT SWELLING AND LEFT FINGERS GRADUALLY SWELLING db MORE. RECENTLY SEEN FOR RIGHT FOOT SWELLING. Coronavirus screen: Client denies travel out of the [place] in the last 14 days. At this time, the client does not indicate any symptoms associated with coronavirus-19. Ebola Screen: Patient negative for fever greater than or equal to 101.5 degrees Fahrenheit, and additional compatible Ebola Virus Disease symptoms Patient denies exposure to infectious person. Patient denies travel to an Ebola-affected area in the 21 days before illness onset. No symptoms or risks identified at this time. Initial Sepsis Screen: Does the patient meet any 2 criteria? No. Patient's initial sepsis screen is negative. Does the patient have a suspected source of infection? No. Patient's initial sepsis screen is negative. Risk Assessment: Do you want to hurt yourself or someone else? Patient reports no desire to harm self or others. Onset of symptoms was December 10, 2024. 11:04 Method Of Arrival: Ambulatory db 11:04 Acuity: AYAN 3 db Triage Assessment: 11:04 General: Appears in no apparent distress. uncomfortable, Behavior is calm, cooperative. db Pain: Complains of pain in left foot. Neuro: Level of Consciousness is awake, alert, obeys commands, Oriented to person, place, time, situation. Respiratory: Airway is patent Respiratory effort is even, unlabored, Respiratory pattern is regular, symmetrical. Historical: - Allergies: 11:04 No Known Allergies; db - PMHx: 11:10 None; db - PSHx: 11:04 Hemorrhoidectomy; db - Immunization history:: Adult Immunizations unknown. - Infectious Disease History:: Denies. - Social history:: Smoking status: Reported history of juuling and/or vaping. Screenin:11 [facility] ED Fall Risk Assessment (Adult) History of falling in the last 3 months, db including since admission No falls in past 3 months (0 pts) Confusion or Disorientation No (0 pts) Intoxicated or Sedated No (0 pts) Impaired Gait No (0 pts) Mobility Assist Device Used No (0 pt) Altered Elimination No (0 pt) Score/Fall Risk Level 0 - 2 = Low Risk Oriented to surroundings, Maintained a safe environment. Abuse screen: Denies threats or abuse. Denies injuries from another. Nutritional screening: No deficits noted. Tuberculosis screening: No symptoms or risk factors identified. Assessment: 11:11 Reassessment: SEE TRIAGE FOR INITIAL ASSESSMENT. db 11:31 Reassessment: Patient appears in no apparent distress at this time. Patient and/or db family updated on plan of care and expected duration. Pain level reassessed. Patient is alert, oriented x 3, equal unlabored respirations, skin warm/dry/pink. ULTRASOUND AT PATIENT BEDSIDE. 12:50 Reassessment: Patient appears in no apparent distress at this time. Patient and/or db family updated on plan of care and expected duration. Pain level reassessed. Patient is alert, oriented x 3, equal unlabored respirations, skin warm/dry/pink. General: Appears in no apparent distress. comfortable, Behavior is calm, cooperative. 13:13 Reassessment: Patient appears in no apparent distress at this time. Patient and/or db family updated on plan of care and expected duration. Pain level reassessed. Patient is alert, oriented x 3, equal unlabored respirations, skin warm/dry/pink. Vital Signs: 11:04 BP 150 / 117; Pulse 96; Resp 18; Temp 98.7; Pulse Ox 97% ; Weight 129.27 kg; Height 6 db ft. 1 in. ; 11:30 BP 156 / 89; Pulse 93; Resp 18; Pulse Ox 97% on R/A; db 12:30 BP 139 / 71; Pulse 89; Resp 16; Pulse Ox 97% ; db 11:04 Body Mass Index 37.60 (129.27 kg, 185.42 cm) db ED Course: 10:57 Patient arrived in ED. im 10:58 Vane Upton MD is Attending Physician. sp3 11:02 Deborah Campuzano, JERI is Primary Nurse. db 11:04 Arm band placed on Patient placed in an exam room. db 11:09 Triage completed. db 11:11 Patient has correct armband on for positive identification. Bed in low position. Call db light in reach. Side rails up X 1. Pulse ox on. NIBP on. 11:35 US Extremity Venous Unilateral Ltd In Process Unspecified. EDMS 12:50 No provider procedures requiring assistance completed. Patient did not have IV access db during this emergency room visit. 13:13 Provided Education on: DISCHARGE AND FOLLOWUP. db Administered Medications: 13:00 Drug: MethylPREDNISolone Sodium Succinate IM 125 mg IM once Route: IM; Site: left db deltoid; 13:13 Follow up: Response: No adverse reaction db Medication: 11:11 VIS not applicable for this client. db Outcome: 12:36 Discharge ordered by MD. [email or web address] 13:13 Discharged to home ambulatory, db 13:13 Condition: stable 13:13 Discharge instructions given to patient, Instructed on discharge instructions, follow up and referral plans. 13:14 Patient left the ED. db Signatures: Dispatcher [employer] Vane Calderon MD MD sp3 Deborah Campuzano, RN RN Alejandra Dickerson
--- NOTE | 2024-12-10 12:36 | EDPHYS ---
Physician Documentation [facility] Name: Manjeet Luna Age: 44 yrs Sex: Male : 1980 Arrival Date: 12/10/2024 Time: 10:54 Bed 24 Private MD: ED Physician Vane Upton HPI: 12/10 11:20 This 44 yrs old Male presents to ER via Ambulatory with complaints of Feet Swelling - sp3 left. 11:20 44-year-old male with recent history of peripheral edema and sciatica type problems now sp3 presents with left foot pain and swelling for the last 2 days. Patient states he has been on his feet a lot and has been wearing his boot. Patient sciatic itself has been improving. He has an appointment next month for consultation on that aspect. He denies any trauma to the left foot, prolonged immobilization, travel or any other signs or symptoms at this time. Previously right foot swelling presentation yielded negative ultrasound. Left side has not been ultrasounded.. Historical: - Allergies: 11:04 No Known Allergies; db - PMHx: 11:10 None; db - PSHx: 11:04 Hemorrhoidectomy; db - Immunization history:: Adult Immunizations unknown. - Infectious Disease History:: Denies. - Social history:: Smoking status: Reported history of juuling and/or vaping. ROS: 11:21 Constitutional: Negative for fever, chills, and weight loss, Eyes: Negative for injury, sp3 pain, redness, and discharge, ENT: Negative for injury, pain, and discharge, Neck: Negative for injury, pain, and swelling, Cardiovascular: Negative for chest pain, palpitations, and edema, Respiratory: Negative for shortness of breath, cough, wheezing, and pleuritic chest pain, Abdomen/GI: Negative for abdominal pain, nausea, vomiting, diarrhea, and constipation, Back: Negative for injury and pain, Skin: Negative for injury, rash, and discoloration, Neuro: Negative for headache, weakness, numbness, tingling, and seizure, Psych: Negative for depression, anxiety, suicide ideation, homicidal ideation, and hallucinations, Allergy/Immunology: Negative for hives, rash, and allergies, Endocrine: Negative for neck swelling, polydipsia, polyuria, polyphagia, and marked weight changes, 11:21 All other systems are negative, Exam: 11:21 Constitutional: This is a well developed, well nourished patient who is awake, alert, sp3 and in no acute distress. Head/Face: Normocephalic, atraumatic. Eyes: Pupils equal round and reactive to light, extra-ocular motions intact. Lids and lashes normal. Conjunctiva and sclera are non-icteric and not injected. Cornea within normal limits. Periorbital areas with no swelling, redness, or edema. Neck: Trachea midline, no thyromegaly or masses palpated, and no cervical lymphadenopathy. Supple, full range of motion without nuchal rigidity, or vertebral point tenderness. No Meningismus. Chest/axilla: Normal chest wall appearance and motion. Nontender with no deformity. No lesions are appreciated. Cardiovascular: Regular rate and rhythm with a normal S1 and S2. No gallops, murmurs, or rubs. Normal PMI, no JVD. No pulse deficits. Respiratory: Lungs have equal breath sounds bilaterally, clear to auscultation and percussion. No rales, rhonchi or wheezes noted. No increased work of breathing, no retractions or nasal flaring. Abdomen/GI: Soft, non-tender, with normal bowel sounds. No distension or tympany. No guarding or rebound. No evidence of tenderness throughout. Back: No spinal tenderness. No costovertebral tenderness. Full range of motion. Skin: Warm, dry with normal turgor. Normal color with no rashes, no lesions, and no evidence of cellulitis. Neuro: Awake and alert, GCS 15, oriented to person, place, time, and situation. Cranial nerves II-XII grossly intact. Motor strength 5/5 in all extremities. Sensory grossly intact. Cerebellar exam normal. Normal gait. Psych: Awake, alert, with orientation to person, place and time. Behavior, mood, and affect are within normal limits. 11:21 Musculoskeletal/extremity: Left foot swollen from the ankle down. No significant other abnormalities noted. Pulses are normal. No calf tenderness. Blood pressure elevated and we will recheck.. Vital Signs: 11:04 BP 150 / 117; Pulse 96; Resp 18; Temp 98.7; Pulse Ox 97% ; Weight 129.27 kg; Height 6 db ft. 1 in. ; 11:30 BP 156 / 89; Pulse 93; Resp 18; Pulse Ox 97% on R/A; db 12:30 BP 139 / 71; Pulse 89; Resp 16; Pulse Ox 97% ; db 11:04 Body Mass Index 37.60 (129.27 kg, 185.42 cm) db MDM: 11:03 Medical Screening Exam initiated sp3 11:21 Data reviewed: vital signs, nurses notes, radiologic studies. ED course: 44-year-old sp3 male with left foot swelling. Differential diagnosis includes dependent edema, DVT, other local inflammation. Will obtain ultrasound and if negative safe discharge patient home with instructions to elevate his foot.. 12:35 ED course: Ultrasound negative. We will safely discharge patient home at this time with sp3 diagnosis of peripheral edema. 12/10 11:09 Order name: US Extremity Venous Unilateral Ltd; Complete Time: 12:35 sp3 12/10 11:22 Order name: Recheck B/P; Complete Time: 11:30 sp3 Administered Medications: 13:00 Drug: MethylPREDNISolone Sodium Succinate IM 125 mg IM once Route: IM; Site: left db deltoid; 13:13 Follow up: Response: No adverse reaction db Disposition Summary: 12/10/24 12:36 Discharge Ordered Notes: Location: Home sp3 Condition: Stable sp3 Diagnosis - Dependent edema, left foot swelling sp3 Followup: sp3 - With: Private Physician - When: Upon discharge from the Emergency Department - Reason: Continuance of care Discharge Instructions: - Discharge Summary Sheet sp3 - Peripheral Edema sp3 Forms: - Medication Reconciliation Form sp3 - Antibiotic Education sp3 - Prescription Opioid Use sp3 - Patient Portal Instructions sp3 - Leadership Thank You Letter sp3 - Work release form db Signatures: Dispatcher [employer] EDMS Vane Upton MD MD sp3 Deborah Campuzano RN RN db Corrections: (The following items were deleted from the chart) 11:09 11:09 Extremity Venous Uni Ltd+[email or web address] ordered. RUBY BELTRAN
[2024-12-10] MEDS ORDERED: METHYLPREDNISOLONE 125 MG INJ ONE (13:02)
[2024-12-10 13:19] VITALS: TEMP 98.7; O2SAT 97
[2024-12-10 13:22] VITALS: BP 139/71
== END 2024-12-10 13:14 | disposition home or self-care (01) ==
LOC: ER 10:54
DX: R60.9 Edema, unspecified (principal)
CPT/HCPCS: 93971; 96372; 99284; J2919

== ENCOUNTER 2025-03-11 14:37 | Emergency (ER) | payer OTHER ==
--- OUTSIDE RECORDS SUMMARY | 2025-03-11 14:41 | XMS REPORT | Continuity of Care Document ---
Author Name Unknown Address [address] [facility] [address] [place] [address] [facility] [place] Address [address] [facility] 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 Name Role Phone PCP, PATIENT DOES NOT HAVE A Primary Care Physic berenice Unavailable Campaigns, Generic Provider Attending Clinician Unavailable DALILA JUAREZ Attending Clinician Unavailable DALILA JUAREZ Attending Clinician Unavailable BILL PERDOMO Attending Clinician Unavailable BLIL PERDOMO Attending Clinician Unavailable Bill Perdomo MD Attending Clinician [phone] MAHESH SORTO Attending Clinician UnavailMAINE Kelly Attending Clinician Unavailable Maine Ramsey Attending Clinician [phone] RICCI GUIDO Attending Clinician Unavailable RICCI GUIDO Attending Clinician Unavailable Ricci Guido DO Attending Clinician [phone] MAINE HEATH Admitting Clinician Unavailable RICCI GUIDO Admitting Clinician Unavailable Payers Payer Name Policy Type Policy Number Effective Date Expirati on Date Source HIM [facility] [id number] 2024 00:00:00 [facility] DANNY HARRIS COPAY FOCUS 9 [id number] 2024 00:00:00 Allergies, Adverse Reactions, Alerts Allergy Name Allergy Type Status Severity Reaction(s) Onset Date Inactive Date Treating Clinician Comments Source NO KNOWN ALLERGIE S Drug Class Active [facility] Social History Social Habit Start Date Stop [...] Stop Date Source Tobacco smoking consumption unknown [facility] Occasional tobacco smoker 2024-08-05 00:00:00 Ya Carter - External Medications Ordered Medication Name Filled Medication Name Start Date Stop Date Current Medication? Ordering Clinician Indication Dosage Frequency Signature (SIG) Comments Components Source ketorolac (TORADOL) injection 30 mg 12-18 00:30: 00 12-18 00:08 :00 No 30mg 30 mg, Intramuscu lar, ONCE, 1 dose, On Mon12/17/24 at 1930, Routine [facility] dexamethaso ne sod phos PF injection 10 mg 12-17 23:45: 00 12-18 00:07 :00 No 10mg 10 mg, Intramuscu lar, ONCE, 1 dose, On Mon12/17/24 at 1845, 1 mL [facility] methylPREDN ISolone (MEDROL, CARSON,) 4 mg tablets 12-17 00:00: 00 Yes [id number] Take by mouth SEE-INSTRU CTIONS. follow package directions [facility] furosemide 20 mg tablet 12-17 00:00: 00 Yes [id number] 10mg Take 0.5 tablets by mouth once daily as needed for Other (leg swelling). [facility] oseltamivir (TAMIFLU) capsule 75 mg 08-30 18:15: 08-30 17:27 :00 No 75mg 75 mg, Oral, ONCE, 1 dose, On Mon08/30/24 at 1215, Routine [facility] acetaminoph en (TYLENOL) tablet 650 mg 08-30 18:15: 00 08-30 17:27 :00 No 650mg 650 mg, Oral, ONCE, 1 dose, On Mon08/30/24 at 1215, ARMANI [facility] oseltamivir (TAMIFLU) 75 mg capsule 08-30 00:00: 09-05 05:59 :00 No [id number] 75mg Take 1 capsule by mouth every 12 (twelve) hours for 5 days. [facility] busPIRone HCl 10 MG oral Tablet 08-05 10:30: 42 Yes 10mg Q.5D Take 1 tablet (10 mg total) by mouth 2 times daily. Ya hopkins Amitriptyli ne HCl 150 MG oral Tablet 08-05 10:30: 42 Yes 150mg QD Take 1 tablet (150 mg total) by mouth nightly. Ya hopkins methylPREDN ISolone (Medrol) 4 MG oral Tablet Therapy Pack 08-05 00:00: 00 08-12 05:59 :00 No [id number] 1{carson} Take 1 carson by mouth See Admin Instructio ns for 6 days Use as directed.. Ya hopkins furosemide 20 mg tablet 2023-07 00:00: 00 07-25 05:59 :00 No [id number] 20mg Take 1 tablet by mouth every morning for 5 days. [facility] dexamethaso ne sod phos PF injection 10 mg 03-21 21:45: 00 03-21 22:53 :00 No 10mg 10 mg, Slow IV Push, ONCE, 1 dose, On Shana 03/21/24 at 1645, 1 mL [facility] ceFAZolin (ANCEF) injection 1,000 mg 03-21 21:45: 00 03-21 22:53 :00 No 1000mg 1,000 mg, Slow IV Push, ONCE, 1 dose, On Shana 03/21/24 at 1645, STAT, Reason for Anti-Infec tive: Documented Infection, Documented Infection Site: Skin / Soft Tissue, Duration of Therapy: Once (ED) [facility] HYDROcodone -acetaminop hen (NORCO 5) tablet 2 tablet 03-21 19:30: 00 03-21 20:07 :00 No 2{tbl} 2 tablet, Oral, ONCE, 1 dose, On Shana 03/21/24 at 1430, ARMANI [facility] naproxen 375 mg tablet 03-21 00:00: 00 Yes [id number] 375mg Take 1 tablet by mouth in the morning and 1 tablet in the evening. Take with meals. [facility] cephALEXin 500 mg capsule 03-21 00:00: 00 Yes [id number] 500mg Take 1 capsule by mouth 4 (four) times daily. [facility] Vital Signs Vital Name Observation Time Observation Value Comments S ource Systolic blood pressure 2024-12-18 00:24:00 168 mm[Hg] [facility] Diastolic blood pressure 2024-12-18 00:24:00 88 mm[Hg] [facility] Heart rate 2024-12-18 00:24:00 92 /min [facility] Body temperature 2024-12-18 00:24:00 36.94 Avelina [facility] Respiratory rate 2024-12-18 00:24:00 18 /min [facility] Oxygen saturation in Arterial blood by Pulse oximetry 2024-12-18 00:24:00 96 /min [facility] Body height 2024-12-17 22:59:[address] [facility] Body weight 2024-12-17 22:59:[address] [facility] BMI 2024-12-17 22:59:00 36.59 kg/m2 [facility] Systolic blood pressure 2024-08-30 16:47:00 135 mm[Hg] [facility] Diastolic blood pressure 2024-08-30 16:47:00 99 mm[Hg] [facility] Heart rate 2024-08-30 16:47:00 122 /min [facility] Body temperature 2024-08-30 16:47:00 39.5 Avelina [facility] Respiratory rate 2024-08-30 16:47:00 18 /min [facility] Oxygen saturation in Arterial blood by Pulse oximetry 2024-08-30 16:47:00 94 /min [facility] Body height 2024-08-30 16:46:[address] [facility] Body weight 2024-08-30 16:46:[address] [facility] BMI 2024-08-30 16:46:00 37.88 kg/m2 [facility] Body height 2024-08-05 16:25:00 188 cm Jen ey Seybold - External Body weight 2024-08-05 16:25:00 138.801 kg Jen ey Seybold - External BMI 2024-08-05 16:25:00 39.29 kg/m2 Jen ey Seybold - External Systolic blood pressure 2024-07-19 21:49:00 157 mm[Hg] [facility] Diastolic blood pressure 2024-07-19 21:49:00 104 mm[Hg] [facility] Heart rate 2024-07-19 21:49:00 88 /min [facility] Body temperature 2024-07-19 21:49:00 37.28 Avelina [facility] Respiratory rate 2024-07-19 21:49:00 15 /min [facility] Oxygen saturation in Arterial blood by Pulse oximetry 2024-07-19 21:49:00 92 /min [facility] Body height 2024-07-19 17:53:[address] [facility] Body weight 2024-07-19 17:53:[address] [facility] BMI 2024-07-19 17:53:00 36.28 kg/m2 [facility] Systolic blood pressure 2024-03-21 23:45:00 130 mm[Hg] [facility] Diastolic blood pressure 2024-03-21 23:45:00 76 mm[Hg] [facility] Heart rate 2024-03-21 23:45:00 105 /min [facility] Body temperature 2024-03-21 23:45:00 37.44 Avelina [facility] Respiratory rate 2024-03-21 23:45:00 18 /min [facility] Oxygen saturation in Arterial blood by Pulse oximetry 2024-03-21 23:45:00 96 /min [facility] Body height 2024-03-21 17:43:[address] [facility] Body weight 2024-03-21 17:43:[address] [facility] BMI 2024-03-21 17:43:00 38.26 kg/m2 [facility] Procedures Procedure Date / Time Performed Performing Clinician Source INFLUENZA A/B RSV COVID NAAT 2024-08-30 17:19:00 Bill Perdomo [facility] BASIC METABOLIC PANEL (NA, K, CL, CO2, GLUCOSE, BUN, CREATININE, CA) 2024-07-19 21:40:00 Maine Heath [facility] CBC WITH DIFF 2024-07-19 21:40:00 [facility] N-TERMINAL PRO-BNP 2024-07-19 21:40:00 [facility] XR CHEST 2 VW 2024-07-19 19:23:00 [place] Heath [facility] COMP. METABOLIC PANEL ([id number]) 2024-03-21 20:14:00 Ricci Guido [facility] SEDIMENTATION RATE 2024-03-21 20:14:00 Ricci Guido [facility] CBC WITH DIFF 2024-03-21 20:14:00 Ricci Guido [facility] XR CHEST 2 VW 2024-03-21 20:01:47 Ricci Guido [facility] DUPLEX VENOUS ARM RIGHT - BY VASCULAR LAB 2024-03-21 19:50:27 Ricci Guido [facility] Encounters Start Date/Time End Date/Time Encounter Type Admission Type Attending [facility] Facility Care Department Encounter ID Source 2024-12-25 00:00:00 2024-12-25 10:05:01 Letter (Out) Campaigns, Generic Provider Campaigns, Generic Provider [facility] (SERINA) 1.2.840.114 350.1.13.10 4.2.7.2.686 [id number] [facility] 2024-12-17 18:00:00 2024-12-17 20:51:00 Emergency X DALILA JUAREZ ERICCA [facility] ERT [id number] [facility] 2024-09-11 00:00:00 2024-09-11 11:36:00 Letter (Out) Campaigns, Generic Provider Campaigns, Generic Provider [facility] (SERINA) 1.2.840.114 350.1.13.10 4.2.7.2.686 [id number] [facility] 2024-08-30 10:47:00 2024-08-30 14:09:00 Emergency X BILL PERDOMO WAYNE [facility] ERT [id number] [facility] 2024-08-30 10:47:00 2024-08-30 14:09:00 Emergency Bill Perdomo [facility] 1.2.840.114 350.1.13.10 4.2.7.2.686 [id number] [facility] 2024-08-12 13:10:00 2024-08-12 13:10:00 Outpatient MAHESH SORTO [id number] Ya Carter 2024-08-05 10:20:00 2024-08-05 10:20:00 Outpatient MAHESH SORTO [id number] Ya Carter 2024-08-05 10:05:00 2024-08-05 10:05:00 Outpatient YA HARVEY [id number] Ya Carter 2024-08-02 00:00:00 2024-08-02 00:00:00 Outpatient MAHESH SORTO [id number] Ya Carter 2024-07-31 00:00:00 2024-07-31 12:37:01 Letter (Out) Campaigns, Generic Provider Campaigns, Generic Provider [facility] ([facility] 1.2.840.114 350.1.13.10 4.2.7.2.686 [id number] [facility] 2024-07-19 11:56:00 2024-07-19 16:32:00 Emergency X IVANAMAINE BOB [facility] ERT [id number] [facility] 2024-07-19 11:56:00 2024-07-19 16:32:00 Emergency Maine Heath [facility] 1.2.840.114 350.1.13.10 4.2.7.2.686 [id number] [facility] 2024-03-21 12:44:00 2024-03-21 18:49:00 Emergency X RICCI GUIDO RICCI GUIDO [facility] ERT [id number] [facility] 2024-03-21 12:44:00 2024-03-21 18:49:00 Emergency Ricci Guido [facility] 1.2.840.114 350.1.13.10 4.2.7.2.686 [id number] [id number] [facility] Results Test Description Test Time Test Comments Results Result Co mments Source [facility] MET[facility]OLIC [facility] (NA, K, CL, CO2, GLUCOSE, BUN, CREATININE, CA)2024-07-19 22:01:58* Test Item Value Reference Range Interpretation Comme nts NA (test code = 3842619366) 143 mmol/L 135-145 K (test code = 2414867272) 4.2 mmol/L 3.5-5.0 CL (test code = 9039402999) 102 mmol/L 98-108 CO2 TOTAL (test code = 5913695862) 32 mmol/L 23-31 H AGAP (test code = 4753607134) 9 2-16 BUN (test code = 4727613141) 9 mg/dL 7-23 GLUCOSE (test code = 1090921240) 136 mg/dL 70-110 H CREATININE (test code = 2160-0) 0.84 mg/dL 0.60-1.25 CALCIUM (test code = 5701169939) 9.8 mg/dL 8.6-10.6 eGFR (test code = 54611-3) 111.0 mL/min/1.73m2 CKD-EPI eGFR (2020). Assuming creatinine has been stable day-to-day for at least three months, the eGFR indicates Category G1 (>= 90 mL/min/1.73 m2) Lab Interpretation (test code = 28663-1) Abnormal [facility] [id number] 21:48:53* Test Item Value Reference Range Interpretation [...] 34.3 g/dL 31.2-35.0 RDW-SD (test code = 28852-6) 39.9 fL 38.5-51.6 RDW-CV (test code = 788-0) 12.6 % 12.1-15.4 PLT (test code = 777-3) 425 150-328 H MPV (test code = 05729-6) 8.4 fL 9.8-13.0 L NRBC/100 WBC (test code = 1100889417) 0.0 0.0-10.0 NRBC x10^3 (test code = 9813241573) See_Comment [Automated Planet DDSa ge] The system which generated this result transmitted reference range: 10*3/?L. The reference range was not used to interpret this result as normal/abnormal. GRAN MAT (NEUT) % (test code = 770-8) 55.3 % IMM GRAN % (test code = 4006545376) 0.50 % LYMPH % (test code = 736-9) 27.8 % MONO % (test code = 5905-5) 8.2 % EOS % (test code = 713-8) 7.0 % BASO % (test code = 706-2) 1.2 % GRAN MAT x10^3(ANC) (test code = 6594569631) 4.12 10*3/uL 1.99-6.95 IMM GRAN x10^3 (test code = 4685171213) 0.04 10*3/uL 0.00-0.06 LYMPH x10^3 (test code = 731-0) 2.07 10*3/uL 1.09-3.23 MONO x10^3 (test code = 742-7) 0.61 10*3/uL 0.36-1.02 EOS x10^3 (test code = 711-2) 0.52 10*3/uL 0.06-0.53 BASO x10^3 (test code = 704-7) 0.09 10*3/uL 0.01-0.09 Lab Interpretation (test code = 19638-7) [facility]normal [facility] 2 [id number] 21:02:50XR CHEST 2 VW COMPARISON: 03/21/2024 Ordering provider: MAINE HEATH CLINICAL INDICATIONS: leg swelling TECHNIQUE: Appropriate radiographic technique and conforming to ALARA FINDINGS: ? AP technique magnifies the cardiac silhouette but otherwise the heart andmediastinum are unremarkable. The lungs are without infiltrate or pleural fluid. The chest is otherwiseunremarkable.[facility] WITH [id number] 21:25:26* Test Item Value Reference Range Interpretation [...] 34.2 g/dL 31.2-35.0 RDW-SD (test code = 92500-5) 41.0 fL 38.5-51.6 RDW-CV (test code = 788-0) 12.5 % 12.1-15.4 PLT (test code = 777-3) 348 150-328 H MPV (test code = 63480-5) 9.0 fL 9.8-13.0 L NRBC/100 WBC (test code = 9033362550) 0.0 0.0-10.0 NRBC x10^3 (test code = 0526098901) See_Comment [Automated messa ge] The system which generated this result transmitted reference range: 10*3/?L. The reference range was not used to interpret this result as normal/abnormal. GRAN MAT (NEUT) % (test code = 770-8) 53.5 % IMM GRAN % (test code = 5823393978) 0.50 % LYMPH % (test code = 736-9) 23.5 % MONO % (test code = 5905-5) 18.4 % EOS % (test code = 713-8) 3.0 % BASO % (test code = 706-2) 1.1 % GRAN MAT x10^3(ANC) (test code = 5432733908) 5.30 10*3/uL 1.99-6.95 IMM GRAN x10^3 (test code = 6846466005) 0.05 10*3/uL 0.00-0.06 LYMPH x10^3 (test code = 731-0) 2.33 10*3/uL 1.09-3.23 MONO x10^3 (test code = 742-7) 1.83 10*3/uL 0.36-1.02 H EOS x10^3 (test code = 711-2) 0.30 10*3/uL 0.06-0.53 BASO x10^3 (test code = 704-7) 0.11 10*3/uL 0.01-0.09 H Lab Interpretation (test code = 98585-6) Abnormal [facility] Pas[facility] [id number] 21:19:54* Test Item Value Reference Range Interpretation Comme nts ESR (test code = 16617-1) 26 0-10 H Lab Interpretation (test cod e = 67588-2) Abnormal [facility] METABOLIC PANEL (51753)2024-03-21 20:50:56* Test Item Value Reference Range Interpretation Comme nts NA (test code = 3349928187) 138 mmol/L 135-145 K (test code = 6538280977) 4.2 mmol/L 3.5-5.0 CL (test code = 0154475545) 97 mmol/L 98-108 L CO2 TOTAL (test code = 4148973103) 31 mmol/L 23-31 AGAP (test code = 1570497699) 10 2-16 BUN (test code = 7366444798) 11 mg/dL 7-23 GLUCOSE (test code = 1469845562) 118 mg/dL 70-110 H CREATININE (test code = 2160-0) 0.86 mg/dL 0.60-1.25 TOTAL BILI (test code = 4893757649) 0.8 mg/dL 0.1-1.1 CALCIUM (test code = 7383165834) 9.8 mg/dL 8.6-10.6 T PROTEIN (test code = 9881125245) 9.5 g/dL 6.3-8.2 H ALBUMIN (test code = 9037446375) 5.0 g/dL 3.5-5.0 ALK PHOS (test code = 9615515921) 68 U/L 34-122 ALTv (test code = 1742-6) 45 U/L 5-50 AST(SGOT) (test code = 3147116979) 29 U/L 13-40 eGFR (test code = 54487-5) 110.2 mL/min/1.73m2 CKD-EPI eGFR (2020). Assuming creatinine has been stable day-to-day for at least three months, the eGFR indicates Category G1 (>= 90 mL/min/1.73 m2) Lab Interpretation (test code = 08527-4) Abnormal [facility] 2 [id number] 20:03:19HISTORY: Swelling. TECHNIQUE: PA and lateral views of the chest are obtained. No prior cheststudy available for comparison. FINDINGS: No acute pneumonia detected. No pneumothorax or pleural effusionor pulmonary congestion. Cardiothoracic ratio of approximately 16.5/37.3 cmis consistent with normal cardiac size. CONCLUSIONS: No signs of acute cardiopulmonary disease.[facility] Notes Date/Time Note Provider Source 2024-12-17 20:50:31 Pt given printed and verbal discharge instructions regarding bilateral leg edema, sciatica of left side, encouraged hydration. Prescriptions provided x2 Pt verbalized understanding of instructions, pt awake alert oriented, resp reg unlabored, skin w/d, color appropriate for race, moves all ext well,pt encouraged to follow up with pcp and or specialist. Advised to seek medical attention for new/prolonged/worsening of symptoms. No adverse reaction to meds given in ER noted upon discharge Awake, alert oriented, resp reg unlabored, skin w/d, pt leaving amb with steady gait, in no apparent distress, Delma Yang RN [facility] 2024-12-17 17:58:32 Patient here for flare up of chronic low back pain and bilateral foot swelling. States he has been seen at before. States he knows he needs to get a PCP but really can't take off of work to go. [facility] 2024-12-17 17:49:00 [facility] Emergency Department Note Patient Name: Penny Childress Date of : 1980 44 year old male Treatment Room: [facility] FT04/FGOJ54-79 Primary Care Physician: PATIENT DOES NOT HAVE A PCP Patient Escorted by: Self [9] Mode of Arrival: Personal means [1] EMS Treatment Prior to ED Arrival: Travel and Exposure Screening: Symptoms Does patient have any of these symptoms?: (not recorded) Exposure Screening Has patient had contact with someone with a communicable disease in the last month?: (not recorded) Diseases exposed to:: (not recorded) Is Patient ?: (not recorded) Exposure Date: (not recorded) Chief Complaint: Chief Complaint Patient presents with Back Pain History of Present Illness: History of Present Illness The patient presents for evaluation of bilateral lower extremity edema and back pain. He reports intermittent swelling in his feet, which has been persistent for the past few days. He does not endorse any recent changes in his diet or prolonged periods of standing or sitting. His occupation involves significant time on his feet, and he has recently adopted a healthier diet, including chicken and salads, in an effort to lose weight. He recalls a previous consultation with an orthopedist in 07/2024, where it was suggested that the swelling could be due to excessive abdominal weight and treatment plan included steroids, an ankle brace, and compression hose, with a follow-up scheduled in a week. However, the brace provided was too small, and he was sent home with Gerardo bandages. The swelling has been recurring intermittently since 07/2024, with no new changes this time. He finds relief from steroid injections during severe episodes. Pt denies any CP, palpitations, SOB, syncope. He is currently in recovery and does not require any narcotic pain medication. He also reports back pain, which he attributes to his sciatic nerve on the left side, and believes he may be overcompensating on the right side, leading to additional issues. He manages the pain with Advil liquid gel and BC powder. He does not report any injury, burning sensation during urination, b/b incontinence, falls/trauma, BLE numbness or blood in urine. The pain is primarily associated with movement. MEDICATIONS Current: Advil liquid gel, BC powder History provided by: Patient and medical records as400 consultant used: No Past Medical History/Immunizations: No past medical history on file. Allergies: No Known Allergies Past Social History: Substance & Sexual Activity No substance use or sexual activity history on file. Past Surgical History: No past surgical history on file. Review of Systems: Review of Systems Constitutional: Negative for chills, diaphoresis, fatigue and fever. Respiratory: Negative for cough and shortness of breath. Cardiovascular: Positive for leg swelling. Negative for chest pain and palpitations. Gastrointestinal: Negative for abdominal pain, diarrhea, nausea and vomiting. Genitourinary: Negative for bladder incontinence. Musculoskeletal: Positive for back pain. Negative for gait problem, joint swelling and myalgias. Neurological: Negative for syncope, weakness and numbness. All other systems reviewed and are negative. Physical Exam: Physical Exam ED Triage Vitals [12/17/24 1759] Weight 129.3 kg (285 lb) Actual or estimated Height 1.88 m (6' 2") BP 138/90 Pulse 109 Resp 20 Temp 37 ?C (98.6 ?F) Temp source Oral SpO2 97 % Measured on Room air Physical Exam General: alert, oriented, no apparent distress, obese Head: normocephalic Eyes: pupils midline, sclera NL Nose: no audible congestion Oropharynx: mucous membranes moist, airway patent Neck: neck supple, no meningismus Lungs: CTAB, non-labored, no wheezes, rhonchi or crackles Heart: regular rate and rhythm, no murmurs audible Abdomen: abdomen large, round and firm Back: painless ROM, no midline TTP. + BL paraspinal TTP, neg SLR Extremities/Musculoskeletal: no cyanosis, no obvious deformities, non-pitting mild edema to BLE, more noticeable to feet. Distal pulses and sensation intact, gait steady Neuro: normal without focal findings, no saddle anesthesia Skin: normal and no rashes or suspicious lesions are seen Radiology: No orders to display Lab Results: Lab Results - No data to display EKG: If EKG completed, see Procedure Note. Orders and Treatments: No orders of the defined types were placed in this encounter. Orders Placed This Encounter Medications ketorolac (TORADOL) injection 30 mg dexamethasone sod phos PF injection 10 mg methylPREDNISolone (MEDROL, CARSON,) 4 mg tablets furosemide 20 mg tablet First Provider Eval: ED Events Date/Time Event User Comments 12/17/241820 Medical Screening Begins DALILA SALDIVAR -- 12/17/241820 First Provider Evaluation DALILA SALDIVAR -- ED COURSE Diagnosis/Impression as of 12/17/241924 Bilateral leg edema Sciatica of left side Results Laboratory Studies Kidney function was normal. Procedures: Procedures MDM: Assessment & Plan 1. Bilateral lower extremity edema. The patient's renal function is within normal limits. A prescription for a diuretic will be provided. Additionally, a steroid injection will be administered today. 2. Back pain. A prescription for ibuprofen will be provided to manage the back pain. Medical Decision Making Pt p/w above hx and PE. Ddx: Dependent edema, PVD, PAD, lymphedema, venous stasis. History, PE, and/or workup is not consistent with: DVT, necrosis, impaired renal function/ARF. Reviewed EHR. Renal fxn has been stable during prior episodes of BLE edema. PE not c/w fluid volume overload, pt exhibits no respiratory distress or tachycardia at time of exam. Rx for Lasix and Medrol today. Recommended use of compression stockings, elevation of BLE and discussed ER return precautions. Pt needs to f/u with a PCP for ongoing management. Problems Addressed: Bilateral leg edema: acute illness or injury Risk Prescription drug management. Flowsheet Documentation: Scoring Tools: No data recorded Disposition/Condition: ED Disposition ED Disposition Discharge Condition Stable Comment -- Discharge Medications: Patient's Medications START taking these medications FUROSEMIDE 20 MG TABLET Take 0.5 tablets by mouth once daily as needed for Other (leg swelling). METHYLPREDNISOLONE (MEDROL, CARSON,) 4 MG TABLETS Take by mouth SEE-INSTRUCTIONS. follow package directions CONTINUE taking these medications which have NOT CHANGED CEPHALEXIN 500 MG CAPSULE Take 1 capsule by mouth 4 (four) times daily. NAPROXEN 375 MG TABLET Take 1 tablet by mouth in the morning and 1 tablet in the evening. Take with meals. START taking Modified Medications as Prescribed No medications on file STOP taking these medications No medications on file Follow-up: Electronically signed by: Dalila Juarez FNP 12/17/241924 Cosigned by Emanuel Sanchez MD at 12/17/2024 7:56 PM CDT Associated attestation - Emanuel Sanchez MD - 12/17/2024 7:56 PM CDT " I was personally available for consultation in the Emergency Department during this Patient evaluation/encounter by ANNABELLE Juarez " [facility] 2024-08-30 14:08:49 Patient is discharged to home. VSS, NAD. Pt has been educated on signs and symptoms for returning to ER. PIV removed. No active bleeding. Pt told about RX, educated about RX. Pt ambulated out of ER with steady gait. Silva RN [facility] 2024-08-30 10:47:54 Penny Childress is a 43 year old male that presents to the er with flu like s/s since last night. + for sick contacts that were flu + Pt has not taken any meds- pt has a temp of 1023.1f Degroot RN [facility] 2024-08-05 10:30:44 Chief Complaint Patient presents with Edema Swelling in right foot x 3 weeks no injuries states has swelling on occasion to other foot and knees and elbows states been going on for a while [phone] (home) Traci Quezada MA [facility] 2024-07-19 16:31:13 Pt discharged to home [...] gait, in no apparent distress. Jones RN [facility] 2024-07-19 15:15:49 Lily RN at bedside for US IV. [facility] 2024-07-19 13:40:00 Attempted blood draw and unsuccessful. 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 Charge nurse Sagrario WILCOX notified. [facility] 2024-07-19 13:30:00 Penny Childress is a 43 year old male brought in by friend with c/o right lower leg swelling x 1 week. [facility] 2024-07-19 13:20:00 Assumed care of Pt at this time from the lobby. 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 [facility] 2024-07-19 11:54:23 Penny Childress is a 43 year old male with BLE foot/ankle/leg swelling where pt reports he has had this condition for approx 1 year. Pt reports the swelling or fluid shifts form right leg to left and then to different hands. Pt denies pain or medical issues. Degroot RN [facility] 2024-03-21 18:45:59 Patient discharged to group home. Patient given printed and verbal discharge instructions [...] with steady gait in no apparent distress. [facility] 2024-03-21 12:43:10 Patient reports right hand swelling and pain for three days getting worse and traveling up arm. Ibuprofen last night. [facility] 2024-03-21 12:42:00 [facility] Emergency Department Note Patient Name: Penny Childress Date of : 1980 43 year old male Treatment Room: [facility] ED [facility] Primary Care Physician: PATIENT DOES NOT [...] 0.01 - 0.09 10*3/uL COMP. METABOLIC PANEL (41028) - Abnormal NA 138 135 - 145 [...] RIGHT CBC WITH DIFF COMP. METABOLIC PANEL (05027) Sedimentation Rate Orders Placed This Encounter Medications HYDROcodone-acetaminophen (NORCO 5) tablet 2 tablet ceFAZolin (ANCEF) injection 1,000 mg dexamethasone sod phos PF injection 10 mg cephALEXin 500 mg capsule naproxen 375 mg tablet First Provider Eval: ED Events Date/Time Event User Comments 03/21/24 135 Medical Screening Begins RICCI GUIDO DO -- [...] Electronically signed by: Ricci Guido DO 03/21/241841 T [facility]
[2025-03-11] MEDS ORDERED: METHYLPREDNISOLONE 125 MG INJ ONE (15:01)
[2025-03-11] MEDS ORDERED: WATER FOR INJ,STERILE 10 ML ONE (15:01)
--- NOTE | 2025-03-11 15:03 | ER ---
Nurse's Notes [facility] Name: Manjeet Luna Age: 44 yrs Sex: Male : 1980 Arrival Date: 03/11/2025 Time: 14:37 Bed 20 Private MD: Diagnosis: Dependent edema Presentation: 03/11 14:48 Chief complaint: Patient states: HE WAS HERE A FEW WEEKS AGO WITH SAME COMPLAINTS, dd2 GIVEN ANTIBIOTICS AND STILL IN PAIN AND FEET SWELLING. Coronavirus screen: At this time, the client does not indicate any symptoms associated with coronavirus-19. Ebola Screen: No symptoms or risks identified at this time. Initial Sepsis Screen: Does the patient meet any 2 criteria? No. Patient's initial sepsis screen is negative. Does the patient have a suspected source of infection? No. Patient's initial sepsis screen is negative. Risk Assessment: Do you want to hurt yourself or someone else? Patient reports no desire to harm self or others. Onset of symptoms is unknown. 14:48 Method Of Arrival: Ambulatory dd2 14:48 Acuity: AYAN 3 dd2 Triage Assessment: 14:50 General: Appears in no apparent distress. uncomfortable, Behavior is calm, cooperative, dd2 appropriate for age. Pain: Complains of pain in low back area, right foot and left foot Pain currently is 9 out of 10 on a pain scale. Musculoskeletal: Circulation, motion, and sensation intact. Range of motion: intact in all extremities, Swelling present in right foot and left foot Reports pain in low back area, right foot and left foot. Historical: - Allergies: 14:50 No Known Allergies; dd2 - PMHx: 14:50 None; dd2 - PSHx: 14:50 Hemorrhoidectomy; dd2 - Immunization history:: Adult Immunizations up to date. - Infectious Disease History:: Denies. - Social history:: Smoking status: Reported history of juuling and/or vaping. Screenin:53 [facility] ED Fall Risk Assessment (Adult) History of falling in the last 3 months, me1 including since admission No falls in past 3 months (0 pts) Confusion or Disorientation No (0 pts) Intoxicated or Sedated No (0 pts) Impaired Gait Yes (1 pt) Mobility Assist Device Used No (0 pt) Altered Elimination No (0 pt) Score/Fall Risk Level 0 - 2 = Low Risk Maintained a safe environment, Provided non-skid footwear, Hourly rounding (assess needs \T\ fall precautionary measures) done. Abuse screen: Denies threats or abuse. Nutritional screening: No deficits noted. Tuberculosis screening: No symptoms or risk factors identified. Assessment: 14:53 General: Appears uncomfortable, well groomed, well developed, Behavior is calm, me1 cooperative, appropriate for age, Reports Low back pain and swelling to BLE. Pain: Complains of pain in left foot and right foot and back and low back area Pain does not radiate. Pain currently is 7 out of 10 on a pain scale. Quality of pain is described as aching, Pain began gradually, Is continuous. Neuro: Level of Consciousness is awake, alert, obeys commands, Oriented to person, place, time, situation, Appropriate for age. Cardiovascular: Patient's skin is warm and dry. Respiratory: Airway is patent Respiratory effort is even, unlabored, Respiratory pattern is regular, symmetrical. GI: No signs and/or symptoms were reported involving the gastrointestinal system. : No signs and/or symptoms were reported regarding the genitourinary system. EENT: No signs and/or symptoms were reported regarding the EENT system. Derm: Skin is healthy with good turgor, Skin is normal. Musculoskeletal: Swelling present in right leg and left leg Reports pain in left foot and right foot and back and low back area. Vital Signs: 14:48 BP 136 / 109; Pulse 108; Resp 18; Temp 98.6; Pulse Ox 97% ; Weight 129.27 kg; Height 6 dd2 ft. 2 in. ; Pain 9/10; 15:07 BP 158 / 97; Pulse 96; Resp 17; Pulse Ox 98% ; me1 14:48 Body Mass Index 36.59 (129.27 kg, 187.96 cm) dd2 14:48 Pain Scale: Adult dd2 ED Course: 14:39 Patient arrived in ED. im 14:40 Vane Upton MD is Attending Physician. sp3 14:50 Triage completed. dd2 14:50 Arm band placed on left wrist. dd2 14:52 Sabina Guzman, JERI is Primary Nurse. me1 14:53 Patient has correct armband on for positive identification. Bed in low position. Call me1 light in reach. Side rails up X2. Provided Education on: POC. Verbalized understanding.. Client placed on continuous cardiac and pulse oximetry monitoring. NIBP monitoring applied. Pulse ox on. NIBP on. 14:53 No provider procedures requiring assistance completed. Patient did not have IV access me1 during this emergency room visit. Administered Medications: 15:06 Drug: MethylPREDNISolone Sodium Succinate IM 125 mg IM once Route: IM; Site: right me1 deltoid; 15:07 Follow up: Response: No adverse reaction me1 Medication: 14:53 VIS not applicable for this client. me1 Outcome: 15:02 Discharge ordered by . hannah 15:13 Discharged to home ambulatory, me1 15:13 Condition: stable 15:13 Discharge instructions given to patient, Instructed on discharge instructions, follow up and referral plans. medication usage, Demonstrated understanding of instructions, follow-up care, medications, Prescriptions given X 1, 15:13 Patient left the ED. me1 Signatures: Vane Upton MD MD sp3 Alejandra Ozuna Michelle RN RN me1 FERNANDO KESSLER RN RN dd2
--- NOTE | 2025-03-11 15:03 | EDPHYS ---
Physician Documentation [facility] Name: Manjeet Luna Age: 44 yrs Sex: Male : 1980 Arrival Date: 03/11/2025 Time: 14:37 Bed 20 Private MD: ED Physician Vane Upton HPI: 03/11 15:00 This 44 yrs old Male presents to ER via Ambulatory with complaints of Low Back Pain, sp3 Feet Swelling. 15:00 44-year-old male with recent history of peripheral edema and sciatica type problems now sp3 presents with left foot pain and swelling for the last 2 days. Patient states he has been on his feet a lot and has been wearing his boots. He has had multiple visits here for dependent edema. No chest pain, shortness of breath, prolonged immobilization, or any other signs or symptoms on ROS at this time. Patient is still in search of his primary care physician.. Historical: - Allergies: 14:50 No Known Allergies; dd2 - PMHx: 14:50 None; dd2 - PSHx: 14:50 Hemorrhoidectomy; dd2 - Immunization history:: Adult Immunizations up to date. - Infectious Disease History:: Denies. - Social history:: Smoking status: Reported history of juuling and/or vaping. ROS: 15:01 Constitutional: Negative for fever, chills, and weight loss, Eyes: Negative for injury, sp3 pain, redness, and discharge, ENT: Negative for injury, pain, and discharge, Neck: Negative for injury, pain, and swelling, Cardiovascular: Negative for chest pain, palpitations, and edema, Respiratory: Negative for shortness of breath, cough, wheezing, and pleuritic chest pain, Abdomen/GI: Negative for abdominal pain, nausea, vomiting, diarrhea, and constipation, : Negative for injury, bleeding, discharge, and swelling, Skin: Negative for injury, rash, and discoloration, Neuro: Negative for headache, weakness, numbness, tingling, and seizure, Psych: Negative for depression, anxiety, suicide ideation, homicidal ideation, and hallucinations, Allergy/Immunology: Negative for hives, rash, and allergies, Endocrine: Negative for neck swelling, polydipsia, polyuria, polyphagia, and marked weight changes, 15:01 All other systems are negative, Exam: 15:00 Constitutional: This is a well developed, well nourished patient who is awake, alert, sp3 and in no acute distress. Head/Face: Normocephalic, atraumatic. Eyes: Pupils equal round and reactive to light, extra-ocular motions intact. Lids and lashes normal. Conjunctiva and sclera are non-icteric and not injected. Cornea within normal limits. Periorbital areas with no swelling, redness, or edema. Neck: Trachea midline, no thyromegaly or masses palpated, and no cervical lymphadenopathy. Supple, full range of motion without nuchal rigidity, or vertebral point tenderness. No Meningismus. Chest/axilla: Normal chest wall appearance and motion. Nontender with no deformity. No lesions are appreciated. Cardiovascular: Regular rate and rhythm with a normal S1 and S2. No gallops, murmurs, or rubs. Normal PMI, no JVD. No pulse deficits. Respiratory: Lungs have equal breath sounds bilaterally, clear to auscultation and percussion. No rales, rhonchi or wheezes noted. No increased work of breathing, no retractions or nasal flaring. Abdomen/GI: Soft, non-tender, with normal bowel sounds. No distension or tympany. No guarding or rebound. No evidence of tenderness throughout. Skin: Warm, dry with normal turgor. Normal color with no rashes, no lesions, and no evidence of cellulitis. Neuro: Awake and alert, GCS 15, oriented to person, place, time, and situation. Cranial nerves II-XII grossly intact. Motor strength 5/5 in all extremities. Sensory grossly intact. Cerebellar exam normal. Normal gait. Psych: Awake, alert, with orientation to person, place and time. Behavior, mood, and affect are within normal limits. 15:00 Musculoskeletal/extremity: Mild peripheral edema on the lower extremities noted. Patient states she has got sciatica type pain bilateral lower extremities.. Vital Signs: 14:48 BP 136 / 109; Pulse 108; Resp 18; Temp 98.6; Pulse Ox 97% ; Weight 129.27 kg; Height 6 dd2 ft. 2 in. ; Pain 9/10; 15:07 BP 158 / 97; Pulse 96; Resp 17; Pulse Ox 98% ; me1 14:48 Body Mass Index 36.59 (129.27 kg, 187.96 cm) dd2 14:48 Pain Scale: Adult dd2 MDM: 14:47 Medical Screening Exam initiated sp3 15:01 Data reviewed: vital signs, nurses notes. ED course: Sciatica versus dependent edema sp3 versus peripheral edema versus musculoskeletal pain. I am not highly suspicious of any critical process, vascular pathology, sepsis, shock or other critical process. We will give methylprednisone IM and discharge patient home on diclofenac.. Administered Medications: 15:06 Drug: MethylPREDNISolone Sodium Succinate IM 125 mg IM once Route: IM; Site: right me1 deltoid; 15:07 Follow up: Response: No adverse reaction me1 Disposition Summary: 03/11/25 15:02 Discharge Ordered Notes: Location: Home sp3 Condition: Stable sp3 Diagnosis - Dependent edema sp3 Followup: sp3 - With: Private Physician - When: Upon discharge from the Emergency Department - Reason: Continuance of care Discharge Instructions: - Discharge Summary Sheet sp3 - Peripheral Edema sp3 Forms: - Medication Reconciliation Form sp3 - Antibiotic Education sp3 - Prescription Opioid Use sp3 - Patient Portal Instructions sp3 - Leadership Thank You Letter sp3 Prescriptions: - Diclofenac Sodium 75 mg Oral Tablet Sustained Release - take 1 tablet ORAL route 2 times per day; 30 tablet; Refills: 0, Product sp3 Selection Permitted Signatures: Vane Upton MD MD sp3 Sabina Guzman RN RN me1 FERNANDO KESSLER RN RN dd2
[2025-03-11 18:30] VITALS: TEMP 98.6
[2025-03-11 18:34] VITALS: BP 158/97; O2SAT 98
== END 2025-03-11 15:13 | disposition home or self-care (01) ==
LOC: ER 14:37
DX: R60.0 Localized edema (principal)
CPT/HCPCS: 96372; 99284; J2919

== ENCOUNTER 2025-05-19 13:03 | Emergency (ER) | payer SELFPAY ==
--- NOTE | 2025-05-19 13:57 | EDPHYS ---
Physician Documentation [facility] Name: Manjeet Luna Age: 44 yrs Sex: Male : 1980 Arrival Date: 05/19/2025 Time: 13:03 Bed DX3 Private MD: ED Physician Aaron Arellano HPI: 05/19 13:57 This 44 yrs old Male presents to ER via Ambulatory with complaints of Back Pain, Hand sb4 Swelling, Knee Pain. 16:23 Patient reports a history of chronic back pain, states that he gets flareups sb4 occasionally. States that he is having a lot of pain in his left lower/mid back. He states that when this happens, sometimes his hands and feet swell also. He states that his symptoms typically resolve with a steroid and anti-inflammatory injection which is what he is here requesting today. Denies any new injuries, no bowel or bladder incontinence. No issues urinating or having a bowel movement. Historical: - Allergies: 13:57 No Known Allergies; me1 - PMHx: 13:57 None; me1 - PSHx: 13:57 Hemorrhoidectomy; me1 - Immunization history:: Adult Immunizations up to date. - Infectious Disease History:: Denies. - Social history:: Smoking status: Patient denies any tobacco usage or history of. ROS: 16:23 Constitutional: Negative for fever, chills, and weight loss, sb4 16:23 Back: Positive for pain at rest, 16:23 MS/extremity: Positive for per HPI, 16:23 All other systems are negative, Exam: 16:23 Head/Face: Normocephalic, atraumatic. Eyes: Extra-ocular motions intact. Periorbital sb4 areas with no swelling, redness, or edema. ENT: Mucous membranes moist. Cardiovascular: Regular rate and rhythm with a normal S1 and S2. Respiratory: No increased work of breathing, no retractions or nasal flaring. Abdomen/GI: Soft, non-tender, no distension. Skin: Warm, dry with normal turgor. Normal color with no rashes, no lesions, and no evidence of cellulitis. MS/ Extremity: Pulses equal, no cyanosis. Neurovascular intact. Full, normal range of motion. 16:23 Constitutional: The patient appears in no acute distress, alert, awake, 16:25 Neuro: Exam negative for acute changes, focal neuro deficits, motor deficits, sensory sb4 deficits, cerebellar deficits, altered mental status, confusion, Vital Signs: 13:55 BP 156 / 100; Pulse 100; Resp 22; Temp 98; Pulse Ox 98% ; Weight 133.81 kg; Height 6 me1 ft. 2 in. ; Pain 9/10; 13:55 Body Mass Index 37.88 (133.81 kg, 187.96 cm) me1 13:55 Pain Scale: Adult me1 MDM: 13:29 Medical Screening Exam initiated sb4 16:25 Data reviewed: vital signs, nurses notes, and as a result, I will discharge patient. sb4 Care significantly affected by the following chronic conditions: Obesity. Counseling: I had a detailed discussion with the patient and/or guardian regarding the historical points, exam findings, and any diagnostic results supporting the discharge/admit diagnosis, the presence of at least one elevated blood pressure reading (>120/80) during this emergency department visit, the need for outpatient follow up, for definitive care, to return to the emergency department if symptoms worsen or persist or if there are any questions or concerns that arise at home. Administered Medications: 15:31 Drug: Dexamethasone IM 10 mg IM once Route: IM; Site: left deltoid; me1 15:31 Follow up: Response: Medication administered at discharge. me1 15:31 Drug: Ketorolac IM 30 mg IM once Route: IM; Site: right deltoid; me1 15:32 Follow up: Response: Medication administered at discharge. ga1 Disposition: 18:21 Co-signature as Attending Physician, Aaron Arellano MD I reviewed the patient's care rn provided by the Advanced Practice Provider and agree with the diagnosis and treatment plan. Disposition Summary: 05/19/25 13:56 Discharge Ordered Notes: Location: Home sb4 Problem: an acute exacerbation sb4 Symptoms: have improved sb4 Condition: Stable sb4 Diagnosis - Acute on chronic back pain sb4 Followup: sb4 - With: Private Physician - When: As needed - Reason: Recheck today's complaints, Re-evaluation by your physician Discharge Instructions: - Discharge Summary Sheet sb4 - Acute Back Pain, Adult sb4 Forms: - Work release form jb4 - Patient Portal Instructions sb4 - Leadership Thank You Letter sb4 Signatures: Aaron Arellano MD MD rn Brown, Sophia, PA-C PA-C sb4 Sabina Guzman, RN RN me1
[2025-05-19] MEDS ORDERED: KETOROLAC 30 MG/ML INJ ONE (15:25)
--- NOTE | 2025-05-19 15:38 | ER ---
Nurse's Notes [facility] Name: Manjeet Luna Age: 44 yrs Sex: Male : 1980 Arrival Date: 05/19/2025 Time: 13:03 Bed DX3 Private MD: Diagnosis: Acute on chronic back pain Presentation: 05/19 13:55 Chief complaint: Patient states: back pain with left hand and left knee pain that me1 started Monday. HX of chronic back pain. Coronavirus screen: Vaccine status: Patient reports being unvaccinated. Ebola Screen: No symptoms or risks identified at this time. Initial Sepsis Screen: Does the patient meet any 2 criteria? HR > 90 bpm. Does the patient have a suspected source of infection? No. Patient's initial sepsis screen is negative. Risk Assessment: Do you want to hurt yourself or someone else? Patient reports no desire to harm self or others. Onset of symptoms was May 18, 2025. 13:55 Method Of Arrival: Ambulatory [facility] 13:55 Acuity: AYAN 4 me1 Historical: - Allergies: 13:57 No Known Allergies; me1 - PMHx: 13:57 None; me1 - PSHx: 13:57 Hemorrhoidectomy; me1 - Immunization history:: Adult Immunizations up to date. - Infectious Disease History:: Denies. - Social history:: Smoking status: Patient denies any tobacco usage or history of. Screenin:35 [facility] ED Fall Risk Assessment (Adult) History of falling in the last 3 months, jb4 including since admission No falls in past 3 months (0 pts) Confusion or Disorientation No (0 pts) Intoxicated or Sedated No (0 pts) Impaired Gait No (0 pts) Mobility Assist Device Used No (0 pt) Altered Elimination No (0 pt) Score/Fall Risk Level 0 - 2 = Low Risk Oriented to surroundings, Maintained a safe environment. Abuse screen: Denies threats or abuse. Nutritional screening: No deficits noted. Tuberculosis screening: No symptoms or risk factors identified. Assessment: 15:35 General: Appears in no apparent distress. uncomfortable, Behavior is calm, cooperative, jb4 appropriate for age. Pain: Complains of pain in back Pain radiates to left hand. Neuro: Level of Consciousness is awake, alert, obeys commands, Oriented to person, place, time, situation. Cardiovascular: Patient's skin is warm and dry. Respiratory: Airway is patent Respiratory effort is even, unlabored, Respiratory pattern is regular, symmetrical. Derm: Skin is intact, Skin is pink, warm \T\ dry. Musculoskeletal: Circulation, motion, and sensation intact. Range of motion: intact in all extremities. Vital Signs: 13:55 BP 156 / 100; Pulse 100; Resp 22; Temp 98; Pulse Ox 98% ; Weight 133.81 kg; Height 6 me1 ft. 2 in. ; Pain 9/10; 13:55 Body Mass Index 37.88 (133.81 kg, 187.96 cm) me1 13:55 Pain Scale: Adult ca1 ED Course: 13:09 Patient arrived in ED. cj3 13:29 [facility]eros [facility] sb4 13:29 Aaron Arellano MD is Attending Physician. sb4 13:57 Triage completed. me1 13:57 Arm band placed on Patient placed in waiting room. me1 15:35 Patient has correct armband on for positive identification. Provided Education on: jb4 discharge instructions.. 15:35 No provider procedures requiring assistance completed. Patient did not have IV access jb4 during this emergency room visit. Administered Medications: 15:31 Drug: Dexamethasone IM 10 mg IM once Route: IM; Site: left deltoid; me1 15:31 Follow up: Response: Medication administered at discharge. me1 15:31 Drug: Ketorolac IM 30 mg IM once Route: IM; Site: right deltoid; me1 15:32 Follow up: Response: Medication administered at discharge. me1 Medication: 15:35 VIS not applicable for this client. jb4 Outcome: 13:56 Discharge ordered by . sb4 15:35 Discharged to home ambulatory, jb4 15:35 Condition: stable 15:35 Discharge instructions given to patient, Instructed on discharge instructions, follow up and referral plans. Demonstrated understanding of instructions, follow-up care, 15:37 Patient left the ED. jb4 Signatures: Missael Mckee, RN RN [email or web address] Shelly Mederos PA-C PA-C sb4 Sabina Guzman RN RN me1 Chela Wynn cj3
[2025-05-19 18:22] VITALS: BP 156/100; TEMP 98; O2SAT 98
== END 2025-05-19 15:37 | disposition home or self-care (01) ==
LOC: ER 13:03
DX: M54.50 Low back pain, unspecified (principal); G89.29 Other chronic pain
CPT/HCPCS: 96372; 99284; J1100; J1885